=== PATIENT | female | born 1965 | race Caucasian/White ===

== ENCOUNTER → 2019-10-28 | Outpatient (CLI) | payer MEDICARE ==
--- NOTE | 2019-10-28 12:36 | US ---
EXAMINATION TYPE: US venous doppler duplex LE RT DATE OF EXAM: 10/28/2019 12:24 PM COMPARISON: NONE CLINICAL HISTORY: R60.0 EDEMA. Right leg pain/ Pt states history of ovarian CA SIDE PERFORMED: Right TECHNIQUE: The lower extremity deep venous system is examined utilizing real time linear array sonog delfina with graded compression, doppler sonography and color-flow sonography. VESSELS IMAGED: External Iliac Vein (EIV) Common Femoral Vein Deep Femoral Vein Greater Saphenous Vein * Femoral Vein Popliteal Vein Small Saphenous Vein * Proximal Calf Veins (* superficial vessels) Right Leg: Negative for DVT, Multiple enlarged lymph nodes within right groin Results called to Radha KHOURY at Dr's office at time of exam IMPRESSION: 1. Right lower extremity ultrasound negative for deep venous thrombosis. 2. Multiple right inguinal lymph nodes are identified.
== END | disposition home or self-care (01) ==
LOC: RADUSWWP 12:05
PROVIDERS: ATTEND Family Medicine
DX: R60.0 Localized edema (principal)

== ENCOUNTER 2019-11-23 11:29 | Inpatient (IN) | payer MEDICARE ==
--- NOTE | 2019-11-23 12:09 | ED ---
General Adult HPI - General Stated complaint: Tachycardia Time Seen by Provider: 11/23/19 11:31 Source: patient, EMS, RN notes reviewed, old records reviewed Mode of arrival: EMS Limitations: no limitations - History of Present Illness Initial comments: 53-year-old female presenting with increased generalized weakness. She has had dyspnea and is being worked up for tachycardia by her primary care physician and is scheduled to see a store director. She's had a racing heart and palpitations for several weeks. Her symptoms in total have been progressive over several months. She denies fever or chills. Denies cough. Denies abdominal pain. Denies nausea vomiting. Denies dysuria or hematuria. Denies melena or rectal bleeding. She does report exertional dyspnea. - Related Data Home Medications Medication Instructions Recorded Confirmed Atenolol [Tenormin] 25 mg PO DAILY 11/23/19 11/23/19 DULoxetine HCL [Cymbalta] 120 mg PO DAILY 11/23/19 11/23/19 Furosemide [Lasix] 40 mg PO DAILY 11/23/19 11/23/19 Gabapentin [Neurontin] 600 mg PO TID 11/23/19 11/23/19 HYDROcodone/APAP 7.5-325MG [[place] 1 tab PO Q4H PRN 11/23/19 11/23/19 7.5-325] Ibuprofen [Motrin] 800 mg PO Q12H PRN 11/23/19 11/23/19 Montelukast [Singulair] 10 mg PO DAILY 11/23/19 11/23/19 QUEtiapine [SEROquel] 50 mg PO HS 11/23/19 11/23/19 Rucaparib Camsylate [Rubraca] 200 mg PO BID 11/23/19 11/23/19 Zt Lido 1.8% Patch 1 patch TRANSDERM DAILY 11/23/19 11/23/19 busPIRone HCL [Buspar] 30 mg PO DAILY 11/23/19 11/23/19 diphenhydrAMINE [Benadryl] 50 mg PO HS 11/23/19 11/23/19 Allergies Allergy/AdvReac Type Severity Reaction Status Date / Time cephalexin [From Keflex] AdvReac Rash/Hives Verified 11/23/19 13:32 isopropyl alcohol AdvReac Itching Verified 11/23/19 13:32 Penicillins AdvReac Rash/Hives Verified 11/23/19 13:32 walnut AdvReac Swelling Verified 11/23/19 13:32 Review of Systems ROS Statement: Those systems with pertinent positive or pertinent negative responses have been documented in the HPI. ROS Other: All systems not noted in ROS Statement are negative. Past Medical History Past Medical History: Cancer Additional Past Medical History / Comment(s): ovarian History of Any Multi-Drug Resistant Organisms: None Reported Past Psychological History: No Psychological Hx Reported Smoking Status: Never smoker Past Alcohol Use History: None Reported Past Drug Use History: None Reported General Exam Limitations: no limitations General appearance: alert, in no apparent distress Head exam: Present: atraumatic, normocephalic Eye exam: Present: normal appearance, PERRL ENT exam: Present: mucous membranes dry Neck exam: Present: normal inspection. Absent: tenderness, meningismus Respiratory exam: Present: respiratory distress. Absent: wheezes, rhonchi Cardiovascular Exam: Present: normal rhythm, tachycardia GI/Abdominal exam: Present: soft. Absent: distended, tenderness, guarding, rebound Rectal exam: Present: normal inspection, heme (-) stool. Absent: black stool, bloody stool Extremities exam: Present: normal inspection, normal capillary refill Back exam: Present: normal inspection, full ROM. Absent: tenderness Neurological exam: Present: alert, oriented X3. Absent: motor sensory deficit Psychiatric exam: Present: normal affect, normal mood Skin exam: Present: warm, dry, pallor Course Vital Signs 11/23/19 11/23/19 11:42 12:55 Temperature 99.3 F Pulse Rate 124 H 116 H Respiratory 18 18 Rate Blood Pressure 125/62 116/53 O2 Sat by Pulse 85 L 99 Oximetry EKG Findings - EKG Comments: EKG Findings:: EKG: Sinus tachycardia, rate of 126, NC interval 150, QRS duration 84, QTC [address] segment elevation. Medical Decision Making - Medical Decision Making 53-year-old female presenting with generalized weakness, tachycardia. Patient appears dyspneic on exam. She is very pale. Blood pressure stable. She is tachycardic and hypoxic in the 70s on room air. She has significant laboratory abnormalities she is pancytopenic and neutropenic with a hemoglobin 5.2, platelets of 60 and absolute neutrophil count 200. She has a lactic acidosis 7.5 which I suspect is from hypoxia rather than sepsis or volume please luo. She is in heart failure. Echo is obtained in emergency department. She's given 2 units of packed RBCs, she is given some mild IV hydration. She has improved oxygenation on a nonrebreather. CT angiography is performed which is negative for PE, there is significant pulmonary edema and possibility of consolidation. I discussed case with both the pulmonary chief sustainability officer Dr. Munoz and the admitting physician Dr. Briones, was able to evaluate the patient emergency department. She will be admitted to the ICU for close monitoring, further testing. Doses: Pancytopenia, high output heart failure, fluid overload - Lab Data Result diagrams: 11/23/19 11:49 11/23/19 11:49 Lab Results 11/23/19 11/23/19 11/23/19 Range/Units 11:46 11:49 11:49 WBC 1.3 L* (3.8-10.6) k/uL RBC 1.40 L (3.80-5.40) m/uL Hgb 5.2 L* (11.4-16.0) gm/dL Hct 14.9 L* (34.0-46.0) % MCV 106.1 H (80.0-100.0) fL MCH 37.0 H (25.0-35.0) pg MCHC 34.9 (31.0-37.0) g/dL RDW 18.5 H (11.5-15.5) % Plt Count 60 L (150-450) k/uL Neutrophils % (Manual) 15 % Lymphocytes % (Manual) 57 % Monocytes % (Manual) 28 % Neutrophils # [employer] Neutrophils # (Manual) 0.20 L* (1.3-7.7) k/uL Lymphocytes # (Manual) 0.74 L (1.0-4.8) k/uL Monocytes # (Manual) 0.36 (0-1.0) k/uL Nucleated RBCs 0 (0-0) /100 WBC Manual Slide Review Performed Polychromasia Present Poikilocytosis Slight Anisocytosis Slight Macrocytosis Marked A PT (9.0-12.0) sec INR (<1.2) APTT (22.0-30.0) sec Sodium (137-145) mmol/L Potassium (3.5-5.1) mmol/L Chloride (98-107) mmol/L Carbon Dioxide (22-30) mmol/L Anion Gap mmol/L BUN (7-17) mg/dL Creatinine (0.52-1.04) mg/dL Est GFR (CKD-EPI)AfAm (>60 ml/min/1.73 sqM) Est GFR (CKD-EPI)NonAf (>60 ml/min/1.73 sqM) Glucose (74-99) mg/dL POC Glucose (mg/dL) 159 H (75-99) mg/dL POC Glu [employer] Labor ID Mono Collins Plasma Lactic Acid Yaya (0.7-2.0) mmol/L Calcium (8.4-10.2) mg/dL Magnesium (1.6-2.3) mg/dL Total Bilirubin (0.2-1.3) mg/dL AST (14-36) U/L ALT (4-34) U/L Alkaline Phosphatase (38-126) U/L Creatine Kinase (30-135) U/L Troponin I (0.000-0.034) ng/mL NT-Pro-B Natriuret Pep pg/mL Total Protein (6.3-8.2) g/dL Albumin (3.5-5.0) g/dL Stool Occult Blood Negative (Negative) Acetone, Qual (Negative) Blood Type Blood Type Recheck Bld Type Recheck Status Antibody Screen Crossmatch Spec Expiration Date 11/23/19 11/23/19 11/23/19 Range/Units 11:49 11:49 11:49 WBC (3.8-10.6) k/uL RBC (3.80-5.40) m/uL Hgb (11.4-16.0) gm/dL Hct (34.0-46.0) % MCV (80.0-100.0) fL MCH (25.0-35.0) pg MCHC (31.0-37.0) g/dL RDW (11.5-15.5) % Plt Count (150-450) k/uL Neutrophils % (Manual) % Lymphocytes % (Manual) % Monocytes % (Manual) % Neutrophils # Neutrophils # (Manual) (1.3-7.7) k/uL Lymphocytes # (Manual) (1.0-4.8) k/uL Monocytes # (Manual) (0-1.0) k/uL Nucleated RBCs (0-0) /100 WBC Manual Slide Review Polychromasia Poikilocytosis Anisocytosis Macrocytosis PT (9.0-12.0) sec INR (<1.2) APTT (22.0-30.0) sec Sodium 143 (137-145) mmol/L Potassium 4.2 (3.5-5.1) mmol/L Chloride 104 (98-107) mmol/L Carbon Dioxide 20 L (22-30) mmol/L Anion Gap 19 mmol/L BUN 23 H (7-17) mg/dL Creatinine 1.15 H (0.52-1.04) mg/dL Est GFR (CKD-EPI)AfAm 62 (>60 ml/min/1.73 sqM) Est GFR (CKD-EPI)NonAf 54 (>60 ml/min/1.73 sqM) Glucose 146 H (74-99) mg/dL POC Glucose (mg/dL) (75-99) mg/dL POC Glu [employer] Labor ID Plasma Lactic Acid Yaya 7.5 H* (0.7-2.0) mmol/L Calcium 8.6 (8.4-10.2) mg/dL Magnesium 1.6 (1.6-2.3) mg/dL Total Bilirubin 1.7 H (0.2-1.3) mg/dL AST 28 (14-36) U/L ALT 17 (4-34) U/L Alkaline Phosphatase 96 (38-126) U/L Creatine Kinase 34 (30-135) U/L Troponin I (0.000-0.034) ng/mL NT-Pro-B Natriuret Pep 6530 pg/mL Total Protein 6.2 L (6.3-8.2) g/dL Albumin 3.3 L (3.5-5.0) g/dL Stool Occult Blood (Negative) Acetone, Qual Negative (Negative) Blood Type Blood Type Recheck Bld Type Recheck Status Antibody Screen Crossmatch Spec Expiration Date 11/23/19 11/23/19 11/23/19 Range/Units 11:49 11:49 11:55 WBC (3.8-10.6) k/uL RBC (3.80-5.40) m/uL Hgb (11.4-16.0) gm/dL Hct (34.0-46.0) % MCV (80.0-100.0) fL MCH (25.0-35.0) pg MCHC (31.0-37.0) g/dL RDW (11.5-15.5) % Plt Count (150-450) k/uL Neutrophils % (Manual) % Lymphocytes % (Manual) % Monocytes % (Manual) % Neutrophils # Neutrophils # (Manual) (1.3-7.7) k/uL Lymphocytes # (Manual) (1.0-4.8) k/uL Monocytes # (Manual) (0-1.0) k/uL Nucleated RBCs (0-0) /100 WBC Manual Slide Review Polychromasia Poikilocytosis Anisocytosis Macrocytosis PT 12.3 H (9.0-12.0) sec INR 1.2 H (<1.2) APTT 27.4 (22.0-30.0) sec Sodium (137-145) mmol/L Potassium (3.5-5.1) mmol/L Chloride (98-107) mmol/L Carbon Dioxide (22-30) mmol/L Anion Gap mmol/L BUN (7-17) mg/dL Creatinine (0.52-1.04) mg/dL Est GFR (CKD-EPI)AfAm (>60 ml/min/1.73 sqM) Est GFR (CKD-EPI)NonAf (>60 ml/min/1.73 sqM) Glucose (74-99) mg/dL POC Glucose (mg/dL) (75-99) mg/dL POC Glu [employer] Labor ID Plasma Lactic Acid Yaya (0.7-2.0) mmol/L Calcium (8.4-10.2) mg/dL Magnesium (1.6-2.3) mg/dL Total Bilirubin (0.2-1.3) mg/dL AST (14-36) U/L ALT (4-34) U/L Alkaline Phosphatase (38-126) U/L Creatine Kinase (30-135) U/L Troponin I 0.049 H* (0.000-0.034) ng/mL NT-Pro-B Natriuret Pep pg/mL Total Protein (6.3-8.2) g/dL Albumin (3.5-5.0) g/dL Stool Occult Blood (Negative) Acetone, Qual (Negative) Blood Type O Positive Blood Type Recheck O Pos Bld Type Recheck Status No Antibody Screen NEGATIVE Crossmatch See Detail Spec Expiration Date 11/26/2019 - 2288 Critical Care Time Critical Care Time: Yes Total Critical Care Time: 35 Disposition Clinical Impression: Anemia, High output heart failure, Pancytopenia, Acute respiratory failure with hypoxia Disposition: ADMITTED IP TO THIS [facility] Condition: Serious Is patient prescribed a controlled substance at d/c from ED?: No Referrals: Jimmy Ferrer MD [Primary Care Provider] - 1-2 days Decision to Admit Reason: Admit from EC Decision Date: 11/23/19 Decision Time: 13:41
[2019-11-23 12:12] LABS: Glucose,Whole Blood 159 mg/dL (75-99)
[2019-11-23 12:17] LABS: Anisocytosis Slight; INR 1.2 (<1.2); MCHC 34.9 g/dL (31.0-37.0); MCV 106.1 fL (80.0-100.0); Macrocytosis Marked; Mean Platelet Volume 8.6; Partial Thromboplastin Time 27.4 sec (22.0-30.0); Poikilocytosis Slight; Prothrombin Time 12.3 sec (9.0-12.0); RDW 18.5 % (11.5-15.5)
[2019-11-23 12:20] LABS: AST 28 U/L (14-36); African American GFR (CKD) 62 (>60 ml/min/1.73 sqM); Albumin 3.3 g/dL (3.5-5.0); Alkaline Phosphatase 96 U/L (38-126); Anion Gap 19 mmol/L; Blood Urea Nitrogen 23 mg/dL (7-17); Calcium 8.6 mg/dL (8.4-10.2); Carbon Dioxide 20 mmol/L (22-30); Chloride 104 mmol/L (98-107); Creatine Kinase 34 U/L (30-135); Glucose 146 mg/dL (74-99); Magnesium 1.6 mg/dL (1.6-2.3); Non-African American GFR(CKD) 54 (>60 ml/min/1.73 sqM); Potassium 4.2 mmol/L (3.5-5.1); Sodium 143 mmol/L (137-145); Total Bilirubin 1.7 mg/dL (0.2-1.3); Total Protein 6.2 g/dL (6.3-8.2)
[2019-11-23 12:24] LABS: HGB 5.2 gm/dL (11.4-16.0); WBC 1.3 k/uL (3.8-10.6)
[2019-11-23 12:25] LABS: HCT 14.9 % (34.0-46.0)
--- NOTE | 2019-11-23 12:25 | XR ---
EXAMINATION TYPE: XR chest 1V portable DATE OF EXAM: 11/23/2019 COMPARISON: 03/31/2012 HISTORY: Shortness of breath TECHNIQUE: Single frontal view of the chest is obtained. FINDINGS: Diffuse interstitial pattern with multifocal areas of consolidation involving the right up per and lower lobe. No sizable pleural effusion or pneumothorax. Heart is mildly prominent. Limited i nspiration. Osseous structures grossly intact. IMPRESSION: 1. Diffuse interstitial and alveolar pattern with multifocal areas of consolidation involving the rig ht upper and lower lobe. Differential diagnosis would include multifocal pneumonia, atypical pneumoni a or pulmonary edema. Correlate clinically.
[2019-11-23 12:26] LABS: ALT 17 U/L (4-34)
[2019-11-23] MEDS ORDERED: AZITHROMYCIN 500 MG in SODIUM CHLORIDE 0.9% 250 ML IVPB STA (12:34)
[2019-11-23] MEDS: SODIUM CHLORIDE 0.9% 1,000 ML IV SCH (12:54)
[2019-11-23 13:10] LABS: Lymphocytes # (M) 0.74 k/uL (1.0-4.8); Monocytes # (M) 0.36 k/uL (0-1.0); Neutrophils % (M) 15 %; Nucleated Red Blood Cells 0 /100 WBC (0-0); Total Cells Counted 100
[2019-11-23 13:11] LABS: Polychromasia Present
[2019-11-23 13:12] LABS: Platelet Count 60 k/uL (150-450)
--- NOTE | 2019-11-23 13:12 | CT ---
EXAMINATION TYPE: CT angio chest DATE OF EXAM: 11/23/2019 12:48 PM COMPARISON: Chest x-ray 11/23/2019 HISTORY: PE CT DLP: 703.9 mGycm Automated exposure control for dose reduction was used. CONTRAST: CTA scan of the thorax is performed with IV Contrast, patient injected with 100 mL of Isovue 370, pul monary embolism protocol. . FINDINGS: LUNGS: There is bilateral multifocal areas of consolidation greater within the upper lobes bilaterall y. Pleural-based thickening and areas of additional groundglass and subsegmental consolidation are se en small bilateral pleural effusions. MEDIASTINUM: There is suboptimal enhancement pulmonary arteries due to artifact. No diagnostic eviden ce of pulmonary embolism within the main right or left pulmonary artery. There is a linear density se en on axial image 50 secondary branch of the right pulmonary artery which is felt to BE most likely a rtifactual. There is cardiomegaly without sizable pericardial effusion. OTHER: There is nonspecific edema in the anterior subcutaneous tissues. Suggestion surgical clips in the right upper quadrant of the abdomen. Correlate for previous cholecystectomy. Hypertrophic change s and degenerative disc disease of vertebral column. Bilateral breast implant IMPRESSION: 1. Bilateral large areas of consolidation additional subsegmental groundglass changes seen diffusely greatest involvement involving the upper lobes. Correlate for. A pulmonary edema also in the differen tial diagnosis. 2. Limited exam in assessment of pulmonary embolism due to artifact centrally. Cannot not exclude a p ulmonary embolism within the secondary branch of the right pulmonary artery due to an abnormal linear density. Finding Most likely is artifactual but should be correlated clinically. If warranted a VQ s can could BE obtained given the limitation of the current exam. 2. Small bilateral pleural effusions and cardiomegaly.
[2019-11-23] MEDS ORDERED: NALOXONE 0.4 MG/ML 1 ML VIAL IV PRN (13:18)
[2019-11-23 14:21] LABS: Appearance,Urine Clear (Clear); Bilirubin,Urine Negative (Negative); Blood,Urine Negative (Negative); Color,Urine Yellow; Glucose,Urine (UA) Negative (Negative); Ketones,Urine Negative (Negative); Leukocyte Esterase,Urine Negative (Negative); Nitrite,Urine Negative (Negative); Protein,Urine Trace (Negative)
[2019-11-23 14:44] LABS: Glucose,Whole Blood 158 mg/dL (75-99)
[2019-11-23 14:58] LABS: Specific Gravity,Urine >1.050 (1.001-1.035)
--- NOTE | 2019-11-23 15:13 | P.HPIM ---
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 The patient reports that her symptoms started after she returned from a trip to [facility] at the end of September. She reports that in early October she had developed a cold, after which she slowly developed her symptoms. Patient reports that she has a history of hemorrhoids and regularly bleeds with bright red blood upon wiping and in the toilet bowl, though notes th at the bleeding did stop roughly 2-3 weeks ago. She otherwise denied abdominal pain, fever, cough, chills, chest pain, nausea, or vomiting. The patient underwent an extensive evaluation in the emergency room. Upon presentation, her vital signs were P 124, BP 125/62, 85% on 3L NC, T 99.3. Laboratory evaluation revealed WBC count 1.3, hemoglobin 5.2, platelets 60, lactic acid 7.5, troponin 0.049, BUN 23, creatinine 1.15, FOBT negative, and negative acetone. Chest x- ray revealed diffuse interstitial and alveolar pattern with multifocal areas of consolidation. Chest CTA showing aparna areas of consolidation with ground-glass changes involving the upper lobes, possibly pulmonary edema. She was given azithromycin, and 2 units of PRBCs were ordered and the patient is being admitted to the medical ICU for further management. Review of Systems Pertinent positives and negatives as discussed in HPI, a complete review of systems was performed and all other systems are negative. Past Medical History Past Medical History: Cancer Additional Past Medical History / Comment(s): ovarian History of Any Multi-Drug Resistant Organisms: None Reported Past Psychological History: No Psychological Hx Reported Smoking Status: Never smoker Past Alcohol Use History: None Reported Past Drug Use History: None Reported - Past Family History Mother Family Medical History: Cancer Additional Family Medical History / Comment(s): Pancreatic CA Brother(s) Family Medical History: Cancer Additional Family Medical History / Comment(s): Pancreatic CA Medications and Allergies Home Medications Medication Instructions Recorded Confirmed Type Atenolol [Tenormin] 25 mg PO DAILY 11/23/19 11/23/19 History DULoxetine HCL [Cymbalta] 120 mg PO DAILY 11/23/19 11/23/19 History Furosemide [Lasix] 40 mg PO DAILY 11/23/19 11/23/19 History Gabapentin [Neurontin] 600 mg PO TID 11/23/19 11/23/19 History HYDROcodone/APAP 7.5-325MG [[place] 1 tab PO Q4H PRN 11/23/19 11/23/19 History 7.5-325] Ibuprofen [Motrin] 800 mg PO Q12H PRN 11/23/19 11/23/19 History Montelukast [Singulair] 10 mg PO DAILY 11/23/19 11/23/19 History QUEtiapine [SEROquel] 50 mg PO HS 11/23/19 11/23/19 History Rucaparib Camsylate [Rubraca] 200 mg PO BID 11/23/19 11/23/19 History Zt [place]ido 1.8% Patch 1 patch TRANSDERM DAILY 11/23/19 11/23/19 History busPIRone HCL [Buspar] 10 mg PO TID 11/23/19 11/23/19 History diphenhydrAMINE [Benadryl] 50 mg PO HS 11/23/19 11/23/19 History Allergies Allergy/AdvReac Type Severity Reaction Status Date / Time cephalexin [From Keflex] AdvReac Rash/Hives Verified 11/23/19 13:32 isopropyl alcohol AdvReac Itching Verified 11/23/19 13:32 Penicillins AdvReac Rash/Hives Verified 11/23/19 13:32 walnut AdvReac Swelling Verified 11/23/19 13:32 Physical Exam Vitals: Vital Signs Temp Pulse Resp BP Pulse Ox 11/23/19 13:47 99.4 F 118 H 20 100/63 97 11/23/19 12:55 116 H 18 116/53 99 11/23/19 11:42 99.3 F 124 H 18 125/62 85 L Intake and Output 11/22/19 11/23/19 11/23/19 22:59 06:59 14:59 Other: Weight 99.79 kg General: non toxic, pale, no distress, appears at stated age, morbidly obese, on non-rebreather 6L Derm: no unusual rashes/lesions no unusual ecchymoses, warm, dry Head: atraumatic, normocephalic, symmetric Eyes: EOMI, no lid lag, anicteric sclera, pupils equal round reactive to light ENT: Nose and ears atraumatic, no thrush, no pharyngeal erythema Neck: No thyromegaly, no cervical lymphadenopathy, trachea midline, supple Mouth: no lip lesion, mucus membranes moist Cardiovascular: S1S2 reg, tachycardic, no murmur, positive posterior tibial pulse bilateral, 1+ aparna LE edema, capillary refill less than 2 seconds Lungs: CTA bilateral, no rhonchi, no rales , no accessory muscle use Abdominal: soft, nontender to palpation, no guarding, no appreciable organomegaly, normal bowel sounds Ext: no gross muscle atrophy, muscle strength 5 out of 5 in all 4 extremities grossly, no contractures Neuro: CN II-XI grossly intact, light touch intact all 4 extremities, finger to nose within normal limits Psych: Alert, oriented, appropriate affect Results CBC & Chem 7: 11/23/19 11:49 11/23/19 11:49 Labs: Abnormal Lab Results - Last 24 Hours (Table) 11/23/19 11/23/19 11/23/19 Range/Units 11:46 11:49 11:49 WBC 1.3 L* (3.8-10.6) k/uL RBC 1.40 L (3.80-5.40) m/uL Hgb 5.2 L* (11.4-16.0) gm/dL Hct 14.9 L* (34.0-46.0) % MCV 106.1 H (80.0-100.0) fL MCH 37.0 H (25.0-35.0) pg RDW 18.5 H (11.5-15.5) % Plt Count 60 L (150-450) k/uL Neutrophils # (Manual) 0.20 L* (1.3-7.7) k/uL Lymphocytes # (Manual) 0.74 L (1.0-4.8) k/uL Macrocytosis Marked A PT (9.0-12.0) sec INR (<1.2) Carbon Dioxide 20 L (22-30) mmol/L BUN 23 H (7-17) mg/dL Creatinine 1.15 H (0.52-1.04) mg/dL Glucose 146 H (74-99) mg/dL POC Glucose (mg/dL) 159 H (75-99) mg/dL Plasma Lactic Acid Yaya (0.7-2.0) mmol/L Total Bilirubin 1.7 H (0.2-1.3) mg/dL Troponin I (0.000-0.034) ng/mL Total Protein 6.2 L (6.3-8.2) g/dL Albumin 3.3 L (3.5-5.0) g/dL Crossmatch 11/23/19 11/23/19 11/23/19 Range/Units 11:49 11:49 11:49 WBC (3.8-10.6) k/uL RBC (3.80-5.40) m/uL Hgb (11.4-16.0) gm/dL Hct (34.0-46.0) % MCV (80.0-100.0) fL MCH (25.0-35.0) pg RDW (11.5-15.5) % Plt Count (150-450) k/uL Neutrophils # (Manual) (1.3-7.7) k/uL Lymphocytes # (Manual) (1.0-4.8) k/uL Macrocytosis PT 12.3 H (9.0-12.0) sec INR 1.2 H (<1.2) Carbon Dioxide (22-30) mmol/L BUN (7-17) mg/dL Creatinine (0.52-1.04) mg/dL Glucose (74-99) mg/dL POC Glucose (mg/dL) (75-99) mg/dL Plasma Lactic Acid Yaya 7.5 H* (0.7-2.0) mmol/L Total Bilirubin (0.2-1.3) mg/dL Troponin I 0.049 H* (0.000-0.034) ng/mL Total Protein (6.3-8.2) g/dL Albumin (3.5-5.0) g/dL Crossmatch 11/23/19 Range/Units 11:55 WBC (3.8-10.6) k/uL RBC (3.80-5.40) m/uL Hgb (11.4-16.0) gm/dL Hct (34.0-46.0) % MCV (80.0-100.0) fL MCH (25.0-35.0) pg RDW (11.5-15.5) % Plt Count (150-450) k/uL Neutrophils # (Manual) (1.3-7.7) k/uL Lymphocytes # (Manual) (1.0-4.8) k/uL Macrocytosis PT (9.0-12.0) sec INR (<1.2) Carbon Dioxide (22-30) mmol/L BUN (7-17) mg/dL Creatinine (0.52-1.04) mg/dL Glucose (74-99) mg/dL POC Glucose (mg/dL) (75-99) mg/dL Plasma Lactic Acid Yaya (0.7-2.0) mmol/L Total Bilirubin (0.2-1.3) mg/dL Troponin I (0.000-0.034) ng/mL Total Protein (6.3-8.2) g/dL Albumin (3.5-5.0) g/dL Crossmatch See Detail Assessment and Plan Plan: Pancytopenia, possibly a drug side effect from Rubraca in setting of history of multiple malignancies -2 units of PRBCs ordered -Low suspicion for GI bleed since pancytopenia and neg FOBT -Monitor CBC every 12 hours -Consult hematology -Neutropenic precautions -MICU admission Lactic acidosis -Likely due to severe anemia due to pancytopenia -Monitor for resolution -Judicious use of IV fluids due to pulmonary edema and fluid overload Troponin elevation -Likely due to sinus tachycardia from severe anemia -Trend troponin -Cardiac monitoring -Echocardiogram Abnormal chest CTA with multifocal consolidation versus pulmonary edema -Continue with azithromycin for now, lower suspicion for pneumonia RAN -Monitor BMP DVT prophylaxis -IPCDs The patient is admitted with an anticipated greater than 2 midnight stay for evaluation of pancytopenia CODE STATUS: Full Code Discussed with: Patient Anticipated discharge date: 3-[address]: Home A total of 50 minutes was spent on the care of this complex patient more than 50% of the time was spent in counseling and care coordination.
[2019-11-23] MEDS ORDERED: IPRATROPIUM-ALBUTEROL 3 ML NEB INHALATION PRN ×2 (16:57→17:14)
[2019-11-23] MEDS ORDERED: FUROSEMIDE 10 MG/ML 4 ML VIAL IV STA (16:57)
[2019-11-23 17:41] LABS: ABG Base Excess 3.3 mmol/L; ABG HCO3 27 mmol/L (21-25); ABG Oxygen Saturation 99.3 % (94-97); ABG PCO2 36 mmHg (35-45); ABG PH 7.49 (7.35-7.45); ABG PO2 137 mmHg (83-108); ABG TCO2 28 mmol/L (19-24); Allen Test Performed? Yes
[2019-11-23] MEDS ORDERED: ALPRAZolam 0.5 MG TAB PO STA (17:50)
[2019-11-23] MEDS: FILGRASTIM-SNDZ 480 MCG/0.8 ML SYRINGE SQ SCH (19:08)
[2019-11-23] MEDS: IPRATROPIUM-ALBUTEROL 3 ML NEB INHALATION SCH (19:43)
[2019-11-23] MEDS: LEVOFLOXACIN 500MG-D5W PMX 500 MG in DEXTROSE/WATER 1 100ML.BAG IVPB SCH (20:07)
[2019-11-23 20:37] LABS: Anisocytosis Slight; MCH 35.3 pg (25.0-35.0); MCHC 34.8 g/dL (31.0-37.0); MCV 101.4 fL (80.0-100.0); Macrocytosis Moderate; Mean Platelet Volume 7.9; RBC 1.54 m/uL (3.80-5.40); RDW 19.3 % (11.5-15.5)
[2019-11-23 20:51] LABS: Bilirubin, Delta 0.7 mg/dL (0.0-0.2); Bilirubin,Unconjugated 1.3 mg/dL (0.0-1.1)
[2019-11-23 20:59] LABS: Platelet Count 52 k/uL (150-450)
[2019-11-23 21:12] LABS: HGB 5.5 gm/dL (11.4-16.0); WBC 1.2 k/uL (3.8-10.6)
[2019-11-23 21:13] LABS: HCT 15.7 % (34.0-46.0)
[2019-11-23 21:34] LABS: Band Neutrophils % 4 %; Lymphocytes # (M) 0.71 k/uL (1.0-4.8); Monocytes # (M) 0.29 k/uL (0-1.0); Neutrophils % (M) 13 %; Nucleated Red Blood Cells 1 /100 WBC (0-0); Poikilocytosis (M) Present; Polychromasia Present; Total Cells Counted 100
--- NOTE | 2019-11-23 21:43 | CONS ---
CONSULTATION PULMONARY/CRITICAL CARE CONSULTATION: November 23, 2019. REASON FOR CONSULTATION: Shortness of breath, tachycardia, pancytopenia, and weakness. This is a patient who was brought in to the emergency room by EMS. Her primary doctor is Dr. Jimmy Ferrer. She was seen today at about 11:30 am. She is 53 years of age. She complains of not feeling well since October 21. She has just gotten progressively worse since that time. She apparently had a cold earlier in the month and since that time, it has just gotten worse and worse. Her complaints include primarily shortness of breath. She is short of breath at rest and on exertion. She also admits to being feeling heart racing and having palpitations. In addition, she is very weak. For that reason, she was seen in the emergency room and admitted. She denied any fever or chills. She denied any cough or phlegm production. She denied any abdominal pain or abdominal discomfort. There is no nausea, vomiting or diarrhea. She denies any genitourinary complaints. She did have bleeding hemorrhoids. She was found to be quite anemic and 2 units of blood were ordered. Currently, the patient is on a [address] from stridor. Currently, the patient is on a non-rebreather. The patient is getting 1 unit of blood. The patient is on some basic IV fluids. The patient is currently feeling quite short of breath. MEDICATIONS: Reviewed. She is on Tenormin, Cymbalta, Lasix, gabapentin, Brave, Motrin, Singulair, syrup, and Seroquel. She is also okay taking Rubraca, BuSpar, and Benadryl. ALLERGIES: INCLUDE KEFLEX, ISOPROPYL ALCOHOL, PENICILLIN, AND WALNUT. MEDICAL HISTORY: Bilateral breast cancer, status post radical mass, bilateral mastectomy. She also apparently has a history of ovarian carcinoma and received a number of chemotherapeutic agents as well as having a bilateral salpingo-oophorectomy and a hysterectomy. She has received some radiation to the pelvic area as well. She has not received any chemotherapeutic agents since 2016. She primarily gets her cancer care down at [facility]. SOCIAL HISTORY: Negative for tobacco, alcohol or illicit drug use. Family history negative. Family is healthy including mother and father. REVIEW OF SYSTEMS: CONSTITUTIONAL weakness. NEUROLOGIC negative. HEENT negative. CARDIOVASCULAR: Tachycardia, racing heartbeat, palpitations. PULMONARY: Shortness of breath. GI negative. negative. RHEUMATOLOGIC negative. IMMUNOLOGIC negative. ENDOCRINOLOGIC negative. DERMATOLOGIC negative. PHYSICAL EXAMINATION: VITAL SIGNS: Current vital signs are reviewed. Heart rate about 115. Respiratory rate about mid to high 20s. Temperature is 99.9, blood pressure is 121/80, mean 93. Saturations are 85%, up to 92% on a non-rebreather. Appears quite tachypneic and dyspneic. Lots of conversational dyspnea. No audible wheezing. Some use of accessory muscles. HEENT examination is grossly unremarkable. Non-rebreather mask in place. NECK: Supple. Full range of motion. No adenopathy. CARDIOVASCULAR: Examination reveals tachycardia. Seems regular. S1, S2 normal. No distinct murmur. LUNGS: Reveal some crackles throughout. There are some coarse rhonchi. No wheezes. ABDOMEN: Obese. Bowel sounds are noted. EXTREMITIES: Reveal some edema. It is 1+ and pitting. Left leg greater than right leg. SKIN is without rash. NEUROLOGIC: Examination is brief but nonfocal. LABS: Reviewed. White count is 1.3, hemoglobin 5.2, hematocrit 14.9, platelet count is 60,000. The differential shows 20% neutrophils and 74% lymphocytes. PT 12.3, INR 1.2, PTT is 27.4. Sodium 143, potassium 4.2, chloride 104, CO2 20, anion gap is 19, BUN and creatinine were 23 and 1.15. Glucose 146. Lactic acid 7.5, bilirubin 1.7, troponin 0.049 and her N terminal proBNP was 6530. Albumin was 3.3. Urine is negative. Influenza studies were negative. Stools for occult blood negative. Acetone negative. X-RAY: Chest x-ray shows some diffuse bilateral infiltrates, which could relate to either pneumonia and/or heart failure/fluid overload. CT angiogram was of poor quality but did not show any large or central pulmonary emboli. There was diffuse ground-glass changes throughout, which could relate to either inflammation/infection versus pulmonary edema. The radiologist could not exclude a smaller pulmonary embolism. There is small bilateral effusions and cardiomegaly. Microbiology is pending. Medications are reviewed. She has Azithromycin orally, Narcan and a 0.9 IV. 1 unit of blood is running. ASSESSMENT: 1. Respiratory distress with hypoxemia, likely related to either pneumonia and/or fluid overload or both. 2. Tachycardia, secondary to respiratory distress. 3. Rule out congestive heart failure. 4. History of ovarian cancer, status post bilateral salpingo-oophorectomy and hysterectomy, with prior multiple chemotherapeutic agents and radiation. 5. History of left breast cancer, status post bilateral radical mastectomy. 6. Obesity. PLAN: The patient will get a unit of blood. We will repeat the hemoglobin. We will get her on some more broad-spectrum antibiotics. We will do cultures of blood, urine and sputum. We will go ahead and put her on some BiPAP at 12, 5 and 100%. We will give her some Lasix IV push. Additional recommendations and suggestions are forthcoming. Prognosis is guarded. She will need a cardiology consultation and an echocardiogram. We will also start the patient on updrafts. Please see my orders. Prognosis is guarded. MMODL / IJN: [id number] /
[2019-11-23] MEDS: ALPRAZolam 1 MG TAB PO PRN (21:50)
[2019-11-23] MEDS: PANTOPRAZOLE 40 MG/10 ML VIAL IVP SCH (21:50)
--- NOTE | 2019-11-24 | P.CONS ---
History of Present Illness - Reason for Consult Consult date: 11/23/19 pancytopenia. History of breast/ovarian ca - History of Present Illness The patient is a 53-year-old white female, with a significant past oncologic history. The patient has a history of BRCA positivity, with right-sided breast cancer, as well as ovarian cancer. The patient has had localized recurrence of her ovarian cancer and has been able to be treated successfully with surgery and chemotherapy. Her last surgery was in 2015. She has had no evidence of recurrence since then and is currently on a PARP inhibitor Rucaparib for maintenance. Previously, she was on Olaparib for many months, but was changed to her present regimen due to coverage reasons. She follows closely with Dr. Camejo, in the [facility]. She had a regular follow-up in 09/29 and at that time was found to have no evidence of recurrence. The patient states that after that follow-up she had a cold and then developed some shortness of breath. This has been slowly progressive since then. She has had no symptoms suggestive chest pain, fever or chills. There has been a cough, which has been mostly dry in generally minor. Due to progression of these symptoms, as well as increasing weakness, and pale complexion she came into the emergency room. She had a CTA of the chest on, that was negative for any masses, adenopathy or PE. However she was found to have bilateral interstitial infiltrative change, consistent with fluid overload versus other. She was also noted to have marked pancytopenia, with WBC in the 1-2 range, hemoglobin in the 5-6 range, and platelets in the 60,000 range. She was therefore admitted further management and consult placed. The patient was on a nonrebreather in the ER, and at the time of my evaluation was on BiPAP at 50% FiO2 Review of Systems Constitutional: Reports fatigue, Reports poor appetite, Reports weakness Eyes: denies blurred vision, denies pain Ears: deny: decreased hearing, ear discharge, earache, tinnitus Ears, nose, mouth and throat: Denies headache, Denies sore throat Cardiovascular: Reports shortness of breath Respiratory: Reports cough, Reports dyspnea Gastrointestinal: Reports hematochezia (resolved a few weeks ago, appears hemorrhoid related by history) Genitourinary: Denies dysuria, Denies hematuria Menstruation: Reports postmenopausal Musculoskeletal: Reports muscle weakness Integumentary: Denies pruritus, Denies rash Neurological: Reports weakness Psychiatric: Reports anxiety Endocrine: Reports fatigue Hematologic/Lymphatic: Reports as per HPI Past Medical History Past Medical History: Cancer Additional Past Medical History / Comment(s): ovarian History of Any Multi-Drug Resistant Organisms: None Reported Past Surgical History: Adenoidectomy, Appendectomy, Breast Surgery, Cholecystectomy, Hernia Repair, Hysterectomy, Tonsillectomy Additional Past Surgical History / Comment(s): Double masectomy Past Anesthesia/Blood Transfusion Reactions: No Reported Reaction Past Psychological History: No Psychological Hx Reported Smoking Status: Never smoker Past Alcohol Use History: None Reported Past Drug Use History: None Reported - Past Family History Mother Family Medical History: Cancer Additional Family Medical History / Comment(s): Pancreatic CA Brother(s) Family Medical History: Cancer Additional Family Medical History / Comment(s): Pancreatic CA Medications and Allergies Home Medications Medication Instructions Recorded Confirmed Type Atenolol [Tenormin] 25 mg PO DAILY 11/23/19 11/23/19 History DULoxetine HCL [Cymbalta] 120 mg PO DAILY 11/23/19 11/23/19 History Furosemide [Lasix] 40 mg PO DAILY 11/23/19 11/23/19 History Gabapentin [Neurontin] 600 mg PO TID 11/23/19 11/23/19 History HYDROcodone/APAP 7.5-325MG [Almond 1 tab PO Q4H PRN 11/23/19 11/23/19 History 7.5-325] Ibuprofen [Motrin] 800 mg PO Q12H PRN 11/23/19 11/23/19 History Montelukast [Singulair] 10 mg PO DAILY 11/23/19 11/23/19 History QUEtiapine [SEROquel] 50 mg PO HS 11/23/19 11/23/19 History Rucaparib Camsylate [Rubraca] 200 mg PO BID 11/23/19 11/23/19 History Zt Lido 1.8% Patch 1 patch TRANSDERM DAILY 11/23/19 11/23/19 History busPIRone HCL [Buspar] 10 mg PO TID 11/23/19 11/23/19 History diphenhydrAMINE [Benadryl] 50 mg PO HS 11/23/19 11/23/19 History Allergies Allergy/AdvReac Type Severity Reaction Status Date / Time cephalexin [From Keflex] AdvReac Rash/Hives Verified 11/23/19 13:32 isopropyl alcohol AdvReac Itching Verified 11/23/19 13:32 Penicillins AdvReac Rash/Hives Verified 11/23/19 13:32 walnut AdvReac Swelling Verified 11/23/19 13:32 Physical Exam Vitals: Vital Signs Temp Pulse Resp BP Pulse Ox 11/23/19 23:09 100.1 F H 125 H 28 H 138/81 97 11/23/19 22:29 100.3 F H 122 H 27 H 141/74 100 11/23/19 22:19 100.4 F H 124 H 30 H 138/82 100 11/23/19 22:09 100.4 F H 123 H 26 H 140/73 98 11/23/19 22:00 123 H 35 H 134/81 100 11/23/19 21:00 123 H 25 H 134/83 100 11/23/19 20:02 125 H 11/23/19 20:00 99 F 123 H 28 H 121/76 100 11/23/19 19:43 121 H 11/23/19 19:00 122 H 16 137/86 100 11/23/19 18:00 114 H 23 137/86 97 11/23/19 17:11 98.2 F 112 H 21 140/92 96 11/23/19 17:00 111 H 23 140/92 97 11/23/19 16:50 111 H 20 96 11/23/19 16:40 112 H 29 H 98 11/23/19 16:30 114 H 17 96 11/23/19 16:20 112 H 23 99 11/23/19 16:10 112 H 25 H 98 11/23/19 16:00 111 H 22 131/78 99 11/23/19 15:50 111 H 18 100 11/23/19 15:40 112 H 20 99 11/23/19 15:30 112 H 12 121/80 85 L 11/23/19 15:20 113 H 22 98 11/23/19 15:10 110 H 17 97 11/23/19 15:00 114 H 24 98 11/23/19 14:50 114 H 15 99 11/23/19 14:45 99.9 F H 115 H 21 116/67 99 11/23/19 14:44 22 11/23/19 14:15 99 F 115 H 18 103/65 94 L 11/23/19 14:05 99.3 F 116 H 18 95/59 94 L 11/23/19 13:47 99.4 F 118 H 20 100/63 97 11/23/19 12:55 116 H 18 116/53 99 11/23/19 11:42 99.3 F 124 H 18 125/62 85 L Intake and Output 11/23/19 11/23/19 11/24/19 14:59 22:59 06:59 Intake Total 0 1160 Output Total 200 2975 Balance -200 -1815 Intake: IV 600 Sodium Chloride 0.9% 1, 600 000 ml @ 75 mls/hr IV . [id number] SRINIVAS Rx#:[id number] Intake, IV Titration 100 Amount Levofloxacin 500Mg-D5w 100 Pmx 500 mg In Dextrose/ Water 1 100ml.bag @ 100 mls/hr IVPB Q24H SRINIVAS Rx#: [id number] Oral 150 Blood Product 0 310 Rc As-1 Unit 0 310 [id number] Rc As-1 Unit 0 [id number] Output: Urine 200 2975 Uretheral (Tom) 200 Other: Voiding Method Indwelling Catheter Weight 99.79 kg - Constitutional General appearance: mild distress - EENT Eyes: EOMI, PERRLA ENT: hearing grossly normal, normal oropharynx - Neck Neck: no lymphadenopathy - Respiratory Respiratory: bilateral: CTA, rales (mild, scattered , in all zones) - Cardiovascular Rhythm: regular Heart sounds: normal: S1, S2 - Gastrointestinal General gastrointestinal: normal bowel sounds, soft - Integumentary Integumentary: normal - Neurologic Neurologic: CNII-XII intact - Musculoskeletal Musculoskeletal: generalized weakness, strength equal bilaterally - Psychiatric very anxious Psychiatric: A&O x's 3 Results CBC & Chem 7: 11/23/19 20:25 11/23/19 11:49 Labs: Abnormal Lab Results - Last 24 Hours (Table) 11/23/19 11/23/19 11/23/19 Range/Units 11:46 11:49 11:49 WBC 1.3 L* (3.8-10.6) k/uL RBC 1.40 L (3.80-5.40) m/uL Hgb 5.2 L* (11.4-16.0) gm/dL Hct 14.9 L* (34.0-46.0) % MCV 106.1 H (80.0-100.0) fL MCH 37.0 H (25.0-35.0) pg RDW 18.5 H (11.5-15.5) % Plt Count 60 L (150-450) k/uL Neutrophils # (Manual) 0.20 L* (1.3-7.7) k/uL Lymphocytes # (Manual) 0.74 L (1.0-4.8) k/uL Nucleated RBCs (0-0) /100 WBC Macrocytosis Marked A PT (9.0-12.0) sec INR (<1.2) Fibrinogen (200-500) mg/dL ABG pH (7.35-7.45) ABG pO2 (83-108) mmHg ABG HCO3 (21-25) mmol/L ABG Total CO2 (19-24) mmol/L ABG O2 Saturation (94-97) % Carbon Dioxide 20 L (22-30) mmol/L BUN 23 H (7-17) mg/dL Creatinine 1.15 H (0.52-1.04) mg/dL Glucose 146 H (74-99) mg/dL POC Glucose (mg/dL) 159 H (75-99) mg/dL Plasma Lactic Acid Yaya (0.7-2.0) mmol/L Total Bilirubin 1.7 H (0.2-1.3) mg/dL Unconjugated Bilirubin (0.0-1.1) mg/dL Delta Bilirubin (0.0-0.2) mg/dL Lactate Dehydrogenase (313-618) U/L Troponin I (0.000-0.034) ng/mL Total Protein 6.2 L (6.3-8.2) g/dL Albumin 3.3 L (3.5-5.0) g/dL Ur Specific [place] (1.001-1.035) Urine Protein (Negative) Crossmatch 11/23/19 11/23/19 11/23/19 Range/Units 11:49 11:49 11:49 WBC (3.8-10.6) k/uL RBC (3.80-5.40) m/uL Hgb (11.4-16.0) gm/dL Hct (34.0-46.0) % MCV (80.0-100.0) fL MCH (25.0-35.0) pg RDW (11.5-15.5) % Plt Count (150-450) k/uL Neutrophils # (Manual) (1.3-7.7) k/uL Lymphocytes # (Manual) (1.0-4.8) k/uL Nucleated RBCs (0-0) /100 WBC Macrocytosis PT 12.3 H (9.0-12.0) sec INR 1.2 H (<1.2) Fibrinogen (200-500) mg/dL ABG pH (7.35-7.45) ABG pO2 (83-108) mmHg ABG HCO3 (21-25) mmol/L ABG Total CO2 (19-24) mmol/L ABG O2 Saturation (94-97) % Carbon Dioxide (22-30) mmol/L BUN (7-17) mg/dL Creatinine (0.52-1.04) mg/dL Glucose (74-99) mg/dL POC Glucose (mg/dL) (75-99) mg/dL Plasma Lactic Acid Yaya 7.5 H* (0.7-2.0) mmol/L Total Bilirubin (0.2-1.3) mg/dL Unconjugated Bilirubin (0.0-1.1) mg/dL Delta Bilirubin (0.0-0.2) mg/dL Lactate Dehydrogenase (313-618) U/L Troponin I 0.049 H* (0.000-0.034) ng/mL Total Protein (6.3-8.2) g/dL Albumin (3.5-5.0) g/dL Ur Specific [place] (1.001-1.035) Urine Protein (Negative) Crossmatch 11/23/19 11/23/19 11/23/19 Range/Units 11:49 11:55 14:06 WBC (3.8-10.6) k/uL RBC (3.80-5.40) m/uL Hgb (11.4-16.0) gm/dL Hct (34.0-46.0) % MCV (80.0-100.0) fL MCH (25.0-35.0) pg RDW (11.5-15.5) % Plt Count (150-450) k/uL Neutrophils # (Manual) (1.3-7.7) k/uL Lymphocytes # (Manual) (1.0-4.8) k/uL Nucleated RBCs (0-0) /100 WBC Macrocytosis PT (9.0-12.0) sec INR (<1.2) Fibrinogen 1037 H (200-500) mg/dL ABG pH (7.35-7.45) ABG pO2 (83-108) mmHg ABG HCO3 (21-25) mmol/L ABG Total CO2 (19-24) mmol/L ABG O2 Saturation (94-97) % Carbon Dioxide (22-30) mmol/L BUN (7-17) mg/dL Creatinine (0.52-1.04) mg/dL Glucose (74-99) mg/dL POC Glucose (mg/dL) (75-99) mg/dL Plasma Lactic Acid Yaya (0.7-2.0) mmol/L Total Bilirubin (0.2-1.3) mg/dL Unconjugated Bilirubin (0.0-1.1) mg/dL Delta Bilirubin (0.0-0.2) mg/dL Lactate Dehydrogenase (313-618) U/L Troponin I (0.000-0.034) ng/mL Total Protein (6.3-8.2) g/dL Albumin (3.5-5.0) g/dL Ur Specific [place] >1.050 H (1.001-1.035) Urine Protein Trace H (Negative) Crossmatch See Detail 11/23/19 11/23/19 11/23/19 Range/Units 14:43 17:29 20:25 WBC 1.2 L* (3.8-10.6) k/uL RBC 1.54 L (3.80-5.40) m/uL Hgb 5.5 L* (11.4-16.0) gm/dL Hct 15.7 L* (34.0-46.0) % MCV 101.4 H (80.0-100.0) fL MCH 35.3 H (25.0-35.0) pg RDW 19.3 H (11.5-15.5) % Plt Count 52 L (150-450) k/uL Neutrophils # (Manual) 0.20 L* (1.3-7.7) k/uL Lymphocytes # (Manual) 0.71 L (1.0-4.8) k/uL Nucleated RBCs 1 H (0-0) /100 WBC Macrocytosis PT (9.0-12.0) sec INR (<1.2) Fibrinogen (200-500) mg/dL ABG pH 7.49 H (7.35-7.45) ABG pO2 137 H (83-108) mmHg ABG HCO3 27 H (21-25) mmol/L ABG Total CO2 28 H (19-24) mmol/L ABG O2 Saturation 99.3 H (94-97) % Carbon Dioxide (22-30) mmol/L BUN (7-17) mg/dL Creatinine (0.52-1.04) mg/dL Glucose (74-99) mg/dL POC Glucose (mg/dL) 158 H (75-99) mg/dL Plasma Lactic Acid Yaya (0.7-2.0) mmol/L Total Bilirubin (0.2-1.3) mg/dL Unconjugated Bilirubin (0.0-1.1) mg/dL Delta Bilirubin (0.0-0.2) mg/dL Lactate Dehydrogenase (313-618) U/L Troponin I (0.000-0.034) ng/mL Total Protein (6.3-8.2) g/dL Albumin (3.5-5.0) g/dL Ur Specific [place] (1.001-1.035) Urine Protein (Negative) Crossmatch 11/23/19 11/23/19 Range/Units 20:25 20:25 WBC (3.8-10.6) k/uL RBC (3.80-5.40) m/uL Hgb (11.4-16.0) gm/dL Hct (34.0-46.0) % MCV (80.0-100.0) fL MCH (25.0-35.0) pg RDW (11.5-15.5) % Plt Count (150-450) k/uL Neutrophils # (Manual) (1.3-7.7) k/uL Lymphocytes # (Manual) (1.0-4.8) k/uL Nucleated RBCs (0-0) /100 WBC Macrocytosis PT (9.0-12.0) sec INR (<1.2) Fibrinogen (200-500) mg/dL ABG pH (7.35-7.45) ABG pO2 (83-108) mmHg ABG HCO3 (21-25) mmol/L ABG Total CO2 (19-24) mmol/L ABG O2 Saturation (94-97) % Carbon Dioxide (22-30) mmol/L BUN (7-17) mg/dL Creatinine (0.52-1.04) mg/dL Glucose (74-99) mg/dL POC Glucose (mg/dL) (75-99) mg/dL Plasma Lactic Acid Yaya (0.7-2.0) mmol/L Total Bilirubin 2.0 H (0.2-1.3) mg/dL Unconjugated Bilirubin 1.3 H (0.0-1.1) mg/dL Delta Bilirubin 0.7 H (0.0-0.2) mg/dL Lactate Dehydrogenase 996 H (313-618) U/L Troponin I 0.043 H* (0.000-0.034) ng/mL Total Protein (6.3-8.2) g/dL Albumin (3.5-5.0) g/dL Ur Specific [place] (1.001-1.035) Urine Protein (Negative) Crossmatch Chest x-ray: report reviewed CT scan - chest: report reviewed Assessment and Plan (1) Acute respiratory failure with hypoxia Narrative/Plan: The exact etiology of her presentation is somewhat unclear. CTA was negative for any evidence of PE but did show bilateral infiltrates. There was concern for fluid overload and the patient has been started on diuresis. However on exam she did not have any significant basilar crackles or JVD. There was no leg swelling or significant orthopnea. The onset has been quite gradual as noted. There is no prior cardiac history. Other possibilities include pneumonitis due to medication. Her current medication has not been associated with pneumonitis, but her previous regimen, of the same family has been known to cause pneumonitis. However she thinks that she has been on this current regimen for at least a few months prior to development of her symptoms. If her symptoms do not improve or diuresis and antibiotic, it would be reasonable to give her a trial of steroid An infectious causes not ruled out, but the patient has no other associated symptoms such as fevers or chills. She has been started on antibiotic already. Recurrence of the malignancy with lymphangitic spread is also a possibility, though the radiologic appearance is not necessarily consistent with the same. Tumor markers will be checked (though breast cancer tumor markers may be falsely elevated with lung inflammation). If significantly elevated, and the patient is not responding to treatment for other causes, then this possibility may become more likely. The patient had a previous CAT scans done in 09/29 in the [facility]. She states that she was not told of any specific abnormality. That report will be requested. Current Visit: Yes Status: Acute Code(s): J96.01 - ACUTE RESPIRATORY FAILURE WITH HYPOXIA SNOMED Code(s): 36319434 (2) Pancytopenia Narrative/Plan: According to the patient this is a new problem. She has had some cytopenias previously on chemotherapy but not as severe. Drug-induced affect Is the main possibility, as P MARTINA inhibitors can cause severe cytopenias occasionally. In addition the patient was also on doxycycline about 10 days ago for possible cellulitis. Other causes such as viral suppression are not ruled out at this time. - Supportive transfusions to keep hemoglobin greater than 7, and platelets greater than 10 - The patient will be started on white cell growth factors as ANC is less than 500 - Full pancytopenia workup to rule out other causes has been ordered. 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 According to the history provided by the patient and her family she has had definitive treatment for her cancers with no evidence of recurrence since 2016. At the time of my evaluation results of prior imaging studies, or physicians nodes were not available and have been requested. As there is a definite possibility of her regimen causing her pancytopenia, this will be placed on hold currently. Current Visit: Yes Status: Acute Code(s): Z15.09 - GENETIC SUSCEPTIBILITY TO OTHER MALIGNANT NEOPLASM SNOMED Code(s): 850202699 Plan: Defer to the admitting service and other consultants for management of her other medical problem
[2019-11-24] MEDS ORDERED: QUEtiapine 50 MG TAB PO STA (00:23)
[2019-11-24] MEDS ORDERED: FUROSEMIDE 10 MG/ML 2 ML VIAL IV ONE ×2 (01:30→13:30)
[2019-11-24 02:25] LABS: Reticulocyte % 1.05 % (0.10-1.80)
[2019-11-24 03:13] LABS: Protein, Total 6.3 g/dL (6.2-8.2)
[2019-11-24] MEDS: SODIUM CHLORIDE 0.9% 1,000 ML IV SCH ×2 (03:23→15:15)
[2019-11-24] MEDS: ALPRAZolam 1 MG TAB PO PRN (04:46)
[2019-11-24 05:12] LABS: Anisocytosis Slight; MCH 33.5 pg (25.0-35.0); MCHC 34.9 g/dL (31.0-37.0); Macrocytosis Slight; Mean Platelet Volume 9.4; Platelet Count 47 k/uL (150-450); RBC 2.06 m/uL (3.80-5.40)
[2019-11-24 05:14] LABS: HCT 19.8 % (34.0-46.0); HGB 6.9 gm/dL (11.4-16.0); WBC 0.8 k/uL (3.8-10.6)
[2019-11-24 05:20] LABS: Albumin 3.2 g/dL (3.5-5.0); Calcium 8.4 mg/dL (8.4-10.2); Magnesium 1.3 mg/dL (1.6-2.3); Potassium 2.9 mmol/L (3.5-5.1); Total Bilirubin 2.3 mg/dL (0.2-1.3); Total Protein 6.2 g/dL (6.3-8.2)
[2019-11-24] MEDS: POTASSIUM CHLORIDE 20 MEQ in WATER FOR INJECTION 1 100ML.BAG IVPB SCH ×3 (05:41→12:01)
[2019-11-24] MEDS: MAGNESIUM SULFATE-D5W PMX 1 GM in DEXTROSE/WATER 1 100ML.BAG IVPB SCH ×5 (05:42→19:37)
[2019-11-24] MEDS ORDERED: POTASSIUM CHLORIDE ER 20 MEQ TAB.ER PO SCH (06:00)
[2019-11-24 07:09] LABS: ABG Base Excess 5.9 mmol/L; ABG HCO3 29 mmol/L (21-25); ABG Oxygen Saturation 97.6 % (94-97); ABG PCO2 34 mmHg (35-45); ABG PH 7.53 (7.35-7.45); ABG PO2 82 mmHg (83-108); ABG TCO2 30 mmol/L (19-24); Allen Test Performed? Yes
[2019-11-24] MEDS: IPRATROPIUM-ALBUTEROL 3 ML NEB INHALATION SCH ×4 (07:20→19:32)
--- NOTE | 2019-11-24 07:46 | XR ---
EXAMINATION TYPE: XR chest 1V DATE OF EXAM: 11/24/2019 COMPARISON: 11/23/2019 HISTORY: Shortness of breath TECHNIQUE: Single frontal view of the chest is obtained. FINDINGS: Progressive diffuse bilateral infiltrative process and tiny pleural effusion. Heart size s table. No pneumothorax. IMPRESSION: Diffuse airspace disease bilaterally may been the basis of diffuse pneumonia. Pulmonary edema not excluded correlate clinically.
[2019-11-24 07:47] LABS: Free Kappa Lt Chain Qnt, Serum 2.02 mg/dL (0.33-1.94)
[2019-11-24] MEDS ORDERED: AZITHROMYCIN 500 MG TAB PO SCH (09:00)
[2019-11-24] MEDS: PANTOPRAZOLE 40 MG/10 ML VIAL IVP SCH ×2 (10:08→21:23)
[2019-11-24] MEDS: FILGRASTIM-SNDZ 480 MCG/0.8 ML SYRINGE SQ SCH (10:09)
--- NOTE | 2019-11-24 10:50 | P.PN ---
Subjective Progress Note Date: 11/24/19 On 11/24/2019 patient seen in follow-up in the intensive care unit. She remains on BiPAP support, with pressures of 12 and 5, and FiO2 of 40%, still dyspneic, but doing slightly better, not tolerating BiPAP support very well. This was pointed gases were reviewed, showing pO2 of 82, pCO2 34, and pH of 7.53. Patient is afebrile, she remains on empiric antibiotics in the form of Azactam, Levaquin, infectious disease is following. Patient did receive 2 units of blood yesterday for a hemoglobin of 6.9, she will receive another unit of packed red blood cells this morning, she was given a dose of IV Lasix after transfusion of the 2 units of blood at 5:00 in the morning. She is diuresing, and she is in the 3825 mL fluid balance over the last 24 hours. Today's chest x-ray has been reviewed, showing diffuse airspace disease bilaterally be related to pneumonia or pulmonary edema. Echocardiogram is pending, cardiology has been consulted. Patient denies any chest pain right now. Blood cultures have been sent and are pending at this time, Legionella urine antigen and pro-calcitonin are pending. Hematology service is consulted, patient's home medication Rucaparib for history of breast cancer is currently on hold. Patient is tachycardic on the monitor in sinus mechanism with a rate of 120 BPM, blood pressures 111/64, lung sounds are diminished, with fine crackles at the bases. She's been afebrile. His labs have been reviewed, showing white blood cell count of 0.8, hemoglobin is 6.9, pl atelet count is 47, sodium is 137, potassium is 2.9, chloride is 96, CO2 is 29, BUN is 18 and creatinine of 0.8. Troponins are 0.049, 0.043, and 0.053. Objective - Vital Signs Vital signs: Vital Signs Temp 98.3 F 11/24/19 10:18 Pulse 116 H 11/24/19 10:18 Resp 20 11/24/19 10:18 BP 111/64 11/24/19 10:18 Pulse Ox 97 11/24/19 10:18 Intake & Output 11/23/19 11/24/19 11/24/19 18:59 06:59 18:59 Intake Total 610 1460 1300 Output Total 800 5105 410 Balance -056 -4109 890 Weight 99.79 kg 99.6 kg Intake: IV 300 900 300 Sodium Chloride 0.9% 1, 300 900 300 000 ml @ 75 mls/hr IV . [id number] [facility] Rx#:[id number] Intake, IV Titration 100 500 Amount Levofloxacin 500Mg-D5w 100 Pmx 500 mg In Dextrose/ Water 1 100ml.bag @ 100 mls/hr IVPB Q24H [facility] Rx#: [id number] Magnesium Sulfate-D5w Pmx 300 1 gm In Dextrose/Water 1 100ml.bag @ 100 mls/hr IVPB Q1H [facility] Rx#: [id number] Potassium Chloride 20 meq 200 In Water For Injection 1 100ml.bag @ 50 mls/hr IVPB Q2H [facility] Rx#: [id number] Oral 150 Blood Product 310 310 500 Rc As-1 Unit 0 [id number] Rc As-1 Unit 310 [id number] Rc As-1 Unit 310 [id number] Output: Urine 800 5105 410 Uretheral (Tom) 200 Other: Voiding Method Indwelling Catheter Indwelling Catheter Indwelling Catheter - Exam GENERAL EXAM: Alert, 53-year-old white female, on BiPAP support, dyspneic at rest, tachycardic in sinus mechanism with a rate of 120 BPM, BiPAP support with pressures of 12/5, and FiO2 of 40% comfortable in no apparent distress. HEAD: Normocephalic/atraumatic. EYES: Normal reaction of pupils, equal size. Conjunctiva pink, sclera white. NOSE: Clear with pink turbinates. THROAT: No erythema or exudates. NECK: No masses, no JVD, no thyroid enlargement, no adenopathy. CHEST: No chest wall deformity. Symmetrical expansion. LUNGS: Equal air entry with no crackles, wheeze, rhonchi or dullness. CVS: Regular rate and rhythm, normal S1 and S2, no gallops, no murmurs, no rubs ABDOMEN: Soft, nontender. No hepatosplenomegaly, normal bowel sounds, no guarding or rigidity. EXTREMITIES: No clubbing, no edema, no cyanosis, 2+ pulses and upper and lower extremities. MUSCULOSKELETAL: Muscle strength and tone normal. SPINE: No scoliosis or deformity SKIN: No rashes CENTRAL NERVOUS SYSTEM: Alert and oriented -3. No focal deficits, tone is normal in all 4 extremities. PSYCHIATRIC: Alert and oriented -3. Appropriate affect. Intact judgment and insight. - Labs CBC & Chem 7: 11/24/19 04:25 11/24/19 04:25 Labs: Abnormal Lab Results - Last 24 Hours (Table) 11/23/19 11/23/19 11/23/19 Range/Units 11:46 11:49 11:49 WBC 1.3 L* (3.8-10.6) k/uL RBC 1.40 L (3.80-5.40) m/uL Hgb 5.2 L* (11.4-16.0) gm/dL Hct 14.9 L* (34.0-46.0) % MCV 106.1 H (80.0-100.0) fL MCH 37.0 H (25.0-35.0) pg RDW 18.5 H (11.5-15.5) % Plt Count 60 L (150-450) k/uL Neutrophils # (Manual) 0.20 L* (1.3-7.7) k/uL Lymphocytes # (Manual) 0.74 L (1.0-4.8) k/uL Nucleated RBCs (0-0) /100 WBC Macrocytosis Marked A Haptoglobin (31.2-198.0) mg/dL PT (9.0-12.0) sec INR (<1.2) Fibrinogen (200-500) mg/dL ABG pH (7.35-7.45) ABG pCO2 (35-45) mmHg ABG pO2 (83-108) mmHg ABG HCO3 (21-25) mmol/L ABG Total CO2 (19-24) mmol/L ABG O2 Saturation (94-97) % Potassium (3.5-5.1) mmol/L Chloride (98-107) mmol/L Carbon Dioxide 20 L (22-30) mmol/L BUN 23 H (7-17) mg/dL Creatinine 1.15 H (0.52-1.04) mg/dL Glucose 146 H (74-99) mg/dL POC Glucose (mg/dL) 159 H (75-99) mg/dL Plasma Lactic Acid Yaya (0.7-2.0) mmol/L Magnesium (1.6-2.3) mg/dL Total Bilirubin 1.7 H (0.2-1.3) mg/dL Unconjugated Bilirubin (0.0-1.1) mg/dL Delta Bilirubin (0.0-0.2) mg/dL Lactate Dehydrogenase (313-618) U/L Troponin I (0.000-0.034) ng/mL Total Protein 6.2 L (6.3-8.2) g/dL Albumin 3.3 L (3.5-5.0) g/dL Ur Specific [place] (1.001-1.035) Urine Protein (Negative) Free [place] LC, Quant (0.33-1.94) mg/dL Crossmatch 11/23/19 11/23/19 11/23/19 Range/Units 11:49 11:49 11:49 WBC (3.8-10.6) k/uL RBC (3.80-5.40) m/uL Hgb (11.4-16.0) gm/dL Hct (34.0-46.0) % MCV (80.0-100.0) fL MCH (25.0-35.0) pg RDW (11.5-15.5) % Plt Count (150-450) k/uL Neutrophils # (Manual) (1.3-7.7) k/uL Lymphocytes # (Manual) (1.0-4.8) k/uL Nucleated RBCs (0-0) /100 WBC Macrocytosis Haptoglobin (31.2-198.0) mg/dL PT 12.3 H (9.0-12.0) sec INR 1.2 H (<1.2) Fibrinogen (200-500) mg/dL ABG pH (7.35-7.45) ABG pCO2 (35-45) mmHg ABG pO2 (83-108) mmHg ABG HCO3 (21-25) mmol/L ABG Total CO2 (19-24) mmol/L ABG O2 Saturation (94-97) % Potassium (3.5-5.1) mmol/L Chloride (98-107) mmol/L Carbon Dioxide (22-30) mmol/L BUN (7-17) mg/dL Creatinine (0.52-1.04) mg/dL Glucose (74-99) mg/dL POC Glucose (mg/dL) (75-99) mg/dL Plasma Lactic Acid Yaya 7.5 H* (0.7-2.0) mmol/L Magnesium (1.6-2.3) mg/dL Total Bilirubin (0.2-1.3) mg/dL Unconjugated Bilirubin (0.0-1.1) mg/dL Delta Bilirubin (0.0-0.2) mg/dL Lactate Dehydrogenase (313-618) U/L Troponin I 0.049 H* (0.000-0.034) ng/mL Total Protein (6.3-8.2) g/dL Albumin (3.5-5.0) g/dL Ur Specific [place] (1.001-1.035) Urine Protein (Negative) Free [place] LC, Quant (0.33-1.94) mg/dL Crossmatch 11/23/19 11/23/19 11/23/19 Range/Units 11:49 11:55 14:06 WBC (3.8-10.6) k/uL RBC (3.80-5.40) m/uL Hgb (11.4-16.0) gm/dL Hct (34.0-46.0) % MCV (80.0-100.0) fL MCH (25.0-35.0) pg RDW (11.5-15.5) % Plt Count (150-450) k/uL Neutrophils # (Manual) (1.3-7.7) k/uL Lymphocytes # (Manual) (1.0-4.8) k/uL Nucleated RBCs (0-0) /100 WBC Macrocytosis Haptoglobin (31.2-198.0) mg/dL PT (9.0-12.0) sec INR (<1.2) Fibrinogen 1037 H (200-500) mg/dL ABG pH (7.35-7.45) ABG pCO2 (35-45) mmHg ABG pO2 (83-108) mmHg ABG HCO3 (21-25) mmol/L ABG Total CO2 (19-24) mmol/L ABG O2 Saturation (94-97) % Potassium (3.5-5.1) mmol/L Chloride (98-107) mmol/L Carbon Dioxide (22-30) mmol/L BUN (7-17) mg/dL Creatinine (0.52-1.04) mg/dL Glucose (74-99) mg/dL POC Glucose (mg/dL) (75-99) mg/dL Plasma Lactic Acid Yaya (0.7-2.0) mmol/L Magnesium (1.6-2.3) mg/dL Total Bilirubin (0.2-1.3) mg/dL Unconjugated Bilirubin (0.0-1.1) mg/dL Delta Bilirubin (0.0-0.2) mg/dL Lactate Dehydrogenase (313-618) U/L Troponin I (0.000-0.034) ng/mL Total Protein (6.3-8.2) g/dL Albumin (3.5-5.0) g/dL Ur Specific [place] >1.050 H (1.001-1.035) Urine Protein Trace H (Negative) Free [place] LC, Quant (0.33-1.94) mg/dL Crossmatch See Detail 11/23/19 11/23/19 11/23/19 Range/Units 14:43 17:29 20:25 WBC 1.2 L* (3.8-10.6) k/uL RBC 1.54 L (3.80-5.40) m/uL Hgb 5.5 L* (11.4-16.0) gm/dL Hct 15.7 L* (34.0-46.0) % MCV 101.4 H (80.0-100.0) fL MCH 35.3 H (25.0-35.0) pg RDW 19.3 H (11.5-15.5) % Plt Count 52 L (150-450) k/uL Neutrophils # (Manual) 0.20 L* (1.3-7.7) k/uL Lymphocytes # (Manual) 0.71 L (1.0-4.8) k/uL Nucleated RBCs 1 H (0-0) /100 WBC Macrocytosis Haptoglobin (31.2-198.0) mg/dL PT (9.0-12.0) sec INR (<1.2) Fibrinogen (200-500) mg/dL ABG pH 7.49 H (7.35-7.45) ABG pCO2 (35-45) mmHg ABG pO2 137 H (83-108) mmHg ABG HCO3 27 H (21-25) mmol/L ABG Total CO2 28 H (19-24) mmol/L ABG O2 Saturation 99.3 H (94-97) % Potassium (3.5-5.1) mmol/L Chloride (98-107) mmol/L Carbon Dioxide (22-30) mmol/L BUN (7-17) mg/dL Creatinine (0.52-1.04) mg/dL Glucose (74-99) mg/dL POC Glucose (mg/dL) 158 H (75-99) mg/dL Plasma Lactic Acid Yaya (0.7-2.0) mmol/L Magnesium (1.6-2.3) mg/dL Total Bilirubin (0.2-1.3) mg/dL Unconjugated Bilirubin (0.0-1.1) mg/dL Delta Bilirubin (0.0-0.2) mg/dL Lactate Dehydrogenase (313-618) U/L Troponin I (0.000-0.034) ng/mL Total Protein (6.3-8.2) g/dL Albumin (3.5-5.0) g/dL Ur Specific [place] (1.001-1.035) Urine Protein (Negative) Free [place] LC, Quant (0.33-1.94) mg/dL Crossmatch 11/23/19 11/23/19 11/23/19 Range/Units 20:25 20:25 20:25 WBC (3.8-10.6) k/uL RBC (3.80-5.40) m/uL Hgb (11.4-16.0) gm/dL Hct (34.0-46.0) % MCV (80.0-100.0) fL MCH (25.0-35.0) pg RDW (11.5-15.5) % Plt Count (150-450) k/uL Neutrophils # (Manual) (1.3-7.7) k/uL Lymphocytes # (Manual) (1.0-4.8) k/uL Nucleated RBCs (0-0) /100 WBC Macrocytosis Haptoglobin 566.0 H (31.2-198.0) mg/dL PT (9.0-12.0) sec INR (<1.2) Fibrinogen (200-500) mg/dL ABG pH (7.35-7.45) ABG pCO2 (35-45) mmHg ABG pO2 (83-108) mmHg ABG HCO3 (21-25) mmol/L ABG Total CO2 (19-24) mmol/L ABG O2 Saturation (94-97) % Potassium (3.5-5.1) mmol/L Chloride (98-107) mmol/L Carbon Dioxide (22-30) mmol/L BUN (7-17) mg/dL Creatinine (0.52-1.04) mg/dL Glucose (74-99) mg/dL POC Glucose (mg/dL) (75-99) mg/dL Plasma Lactic Acid Yaya (0.7-2.0) mmol/L Magnesium (1.6-2.3) mg/dL Total Bilirubin 2.0 H (0.2-1.3) mg/dL Unconjugated Bilirubin 1.3 H (0.0-1.1) mg/dL Delta Bilirubin 0.7 H (0.0-0.2) mg/dL Lactate Dehydrogenase 996 H (313-618) U/L Troponin I 0.043 H* (0.000-0.034) ng/mL Total Protein (6.3-8.2) g/dL Albumin (3.5-5.0) g/dL Ur Specific [place] (1.001-1.035) Urine Protein (Negative) Free [place] LC, Quant (0.33-1.94) mg/dL Crossmatch 11/23/19 11/24/19 11/24/19 Range/Units 20:25 04:25 04:25 WBC 0.8 L* (3.8-10.6) k/uL RBC 2.06 L (3.80-5.40) m/uL Hgb 6.9 L* (11.4-16.0) gm/dL Hct 19.8 L* (34.0-46.0) % MCV (80.0-100.0) fL MCH (25.0-35.0) pg RDW 19.0 H (11.5-15.5) % Plt Count 47 L (150-450) k/uL Neutrophils # (Manual) (1.3-7.7) k/uL Lymphocytes # (Manual) (1.0-4.8) k/uL Nucleated RBCs (0-0) /100 WBC Macrocytosis Haptoglobin (31.2-198.0) mg/dL PT (9.0-12.0) sec INR (<1.2) Fibrinogen (200-500) mg/dL ABG pH (7.35-7.45) ABG pCO2 (35-45) mmHg ABG pO2 (83-108) mmHg ABG HCO3 (21-25) mmol/L ABG Total CO2 (19-24) mmol/L ABG O2 Saturation (94-97) % Potassium 2.9 L (3.5-5.1) mmol/L Chloride 96 L (98-107) mmol/L Carbon Dioxide (22-30) mmol/L BUN 18 H (7-17) mg/dL Creatinine (0.52-1.04) mg/dL Glucose 115 H (74-99) mg/dL POC Glucose (mg/dL) (75-99) mg/dL Plasma Lactic Acid Yaya (0.7-2.0) mmol/L Magnesium 1.3 L (1.6-2.3) mg/dL Total Bilirubin 2.3 H (0.2-1.3) mg/dL Unconjugated Bilirubin (0.0-1.1) mg/dL Delta Bilirubin (0.0-0.2) mg/dL Lactate Dehydrogenase (313-618) U/L Troponin I (0.000-0.034) ng/mL Total Protein 6.2 L (6.3-8.2) g/dL Albumin 3.2 L (3.5-5.0) g/dL Ur Specific [place] (1.001-1.035) Urine Protein (Negative) Free [place] LC, Quant 2.02 H (0.33-1.94) mg/dL Crossmatch 11/24/19 11/24/19 Range/Units 04:25 07:00 WBC (3.8-10.6) k/uL RBC (3.80-5.40) m/uL Hgb (11.4-16.0) gm/dL Hct (34.0-46.0) % MCV (80.0-100.0) fL MCH (25.0-35.0) pg RDW (11.5-15.5) % Plt Count (150-450) k/uL Neutrophils # (Manual) (1.3-7.7) k/uL Lymphocytes # (Manual) (1.0-4.8) k/uL Nucleated RBCs (0-0) /100 WBC Macrocytosis Haptoglobin (31.2-198.0) mg/dL PT (9.0-12.0) sec INR (<1.2) Fibrinogen (200-500) mg/dL ABG pH 7.53 H (7.35-7.45) ABG pCO2 34 L (35-45) mmHg ABG pO2 82 L (83-108) mmHg ABG HCO3 29 H (21-25) mmol/L ABG Total CO2 30 H (19-24) mmol/L ABG O2 Saturation 97.6 H (94-97) % Potassium (3.5-5.1) mmol/L Chloride (98-107) mmol/L Carbon Dioxide (22-30) mmol/L BUN (7-17) mg/dL Creatinine (0.52-1.04) mg/dL Glucose (74-99) mg/dL POC Glucose (mg/dL) (75-99) mg/dL Plasma Lactic Acid Yaya (0.7-2.0) mmol/L Magnesium (1.6-2.3) mg/dL Total Bilirubin (0.2-1.3) mg/dL Unconjugated Bilirubin (0.0-1.1) mg/dL Delta Bilirubin (0.0-0.2) mg/dL Lactate Dehydrogenase (313-618) U/L Troponin I 0.053 H* (0.000-0.034) ng/mL Total Protein (6.3-8.2) g/dL Albumin (3.5-5.0) g/dL Ur Specific [place] (1.001-1.035) Urine Protein (Negative) Free [place] LC, Quant (0.33-1.94) mg/dL Crossmatch Assessment and Plan Plan: Assessment: #1. Acute hypoxemic respiratory failure likely related to interstitial pneumonia or pulmonary edema or combination of both, echocardiogram is pending, and his empirical covered with antibiotics #2. Sinus tachycardia secondary to respiratory distress #3. Rule out congestive heart failure, echocardiogram is pending #4. History of ovarian cancer, status post bilateral salpingo-oophorectomy and hysterectomy, with prior multiple chemotherapeutic agents and radiation, currently on Rubraca #5. Pancytopenia #6. History of left breast cancer, status post bilateral radical mastectomy #7. Obesity #8. Elevated troponins rule out non-ST elevated myocardial infarction Plan: Continue current medical treatment, continue current antibiotics, cardiogram is pending, patient will receive an additional 60 of Lasix this morning after the third unit of blood has been infused. Today's chest x-ray has been reviewed and still showing diffuse airspace disease bilaterally. We'll place the patient on Airvo or high flow, may use BiPAP intermittently. We will continue to follow, GI and DVT prophylaxis, and further input from cardiology, hematology and infectious disease services, cultures are pending. We'll continue total I performed a history & physical examination of the patient and discussed their management with my nurse practitioner, Audrey Guzman. I reviewed the nurse practitioner's note and agree with the documented findings and plan of care. Lung sounds are positive for diminished breath sounds. The findings and the impression was discussed with the patient. I attest to the documentation by the nurse practitioner. Time with Patient: Greater than 30
--- NOTE | 2019-11-24 11:29 | CONS ---
CONSULTATION CHIEF COMPLAINT: Shortness of breath. Laurie is a 53-year-old lady with history of breast cancer on chemotherapy, who presented to the hospital with shortness of breath, tachycardia, and pancytopenia. Cardiology has been consulted for her tachycardia and shortness of breath. The patient's chest x- ray shows bilateral interstitial prominence. She appears short of breath and is tachycardic at rest. There is no prior cardiac history. There is no history of congestive heart failure, coronary artery disease or valvular heart disease. Her clinical presentation is more consistent with noncardiogenic pulmonary edema including interstitial spread of her cancer. She has been treated with intravenous diuretics without significant change in her symptoms and her physical exam does not reveal significant crackles. She is tachycardic secondary to the underlying multiple medical problems. She is in sinus rhythm does not have any cardiac arrhythmia. I am waiting on the echo results at this time. She is severely anemic and had received blood transfusion. PAST MEDICAL HISTORY: Significant for metastatic breast cancer. MEDICATIONS: Medications at home include Cymbalta, Tenormin, Neurontin, Lasix, [place], Motrin, Seroquel, Benadryl, and BuSpar. ALLERGIES: Allergies are as charted. FAMILY HISTORY: Negative for premature coronary artery disease. SOCIAL HISTORY: Negative for current smoking, EtOH abuse, or drug abuse. REVIEW OF SYSTEMS: HEENT is unremarkable. CARDIAC: As described above. RESPIRATORY: As described above. GI: Negative. GENITOURINARY: Negative. PSYCHOSOCIAL: Negative. ENDOCRINE: Negative. DERM: Negative. CONSTITUTIONAL: As described above. HEMATOLOGICAL: Significant for acute anemia. ONCOLOGICAL: Significant for breast and ovarian cancer. Rest of the system review is not relevant. PHYSICAL EXAMINATION: On exam, heart rate is 114 beats per minute, blood pressure 111/64, respiratory rate is 18. Chest exam reveals diminished air entry at the bases. I do not hear any crackles suggestive of pulmonary edema. Heart exam reveals first and second heart sounds. No gallop. No murmur. Abdomen is soft. Examination of extremities did not reveal any edema. LABS: Labs showed that the hemoglobin is 6.9, platelet count is 47, white cell count was 0.8, potassium is low at 2.9, creatinine is 0.8. Troponins are mildly elevated at 0.04, 0.04 and 0.05. ASSESSMENT: 1. Shortness of breath probably noncardiac in origin. 2. Elevated troponin secondary to underlying cancer. 3. History of breast and ovarian cancer. 4. Pancytopenia. PLAN: I will obtain a 2D echo to assess her LV function. Use Lasix as needed. I do not believe we are dealing with congestive heart failure. Elevated troponin is not suggestive of acute myocardial ischemia. MMODL / IJN: [id number] /
[2019-11-24] MEDS: AZTREONAM 2 GM in SODIUM CHLORIDE 0.9% 100 ML IVPB SCH ×2 (12:02→17:02)
[2019-11-24] MEDS ORDERED: FUROSEMIDE 10 MG/ML 4 ML VIAL IV ONE (13:00)
[2019-11-24 13:02] LABS: CA27.29 Breast Ca Marker 7.7 U/mL (0.0-38.5)
[2019-11-24 13:42] LABS: Cancer Antigen 153 2.9 U/mL (0.0-32.3)
[2019-11-24 13:45] LABS: Ferritin 1536.9 ng/mL (10.0-291.0)
--- NOTE | 2019-11-24 14:06 | P.CN ---
Psychiatric Consult - . Consult date: 11/24/19 Consult:: 11/24/19 13:52 IDENTIFYING DATA: This patient is a 53-year-old female who has 2 kids and is currently and lives with her . HISTORY OF PRESENT ILLNESS: The patient presented to the hospital with complaints of generalized weakness, shortness of breath and tachycardia. Patient was found to be pancytopenic and neutropenic. Patient had elevated troponins and was also admitted for heart failure and respiratory failure. Psychiatry was consulted for depression and anxiety. Dray Truck Driver spoke with nurse at the bedside who states that patient complained of chronic depression and mentions suicidal ideations yesterday related to her pain. Patient was seen at the bedside with a sitter and also her and patient appeared to be in aggravating pain and rolling in her bed and pleading with the personal lines underwriter to start pa in medications for her. When I asked more about the pain she states that she has been taking [place]'s at home however has been weaned down by her primary care physician. She states that she takes 7.5 mg twice a day and has been off it since she been in the hospital. She states that her pain is a "10/10" and is mainly in her right lower quadrant. Patient claims that her depression and suicidal remarks were directly related to her pain and states that if she does not get her pain medications then she will feel more suicidal and depressed. She states that "I have a lot to live for I want to see my grandbabies". Patient states that everything at home is fine and denies any problems other than going to the grief of her cousin who committed suicide in November 2018. She states that she goes to and follows up with Dr. Pulido for outpatient psychiatric services. She states that she has been taking her medications regularly at home up until coming to the hospital. She admits to anxiety r elated to her pain and poor sleep related to pain. At this time patient denies any homical ideations, intent or plan however did state that she feels suicidal with no plan and is related to her pain. Patient denies any auditory, visual hallucinations and denies any paranoia or delusions. Patients denies using any drugs alcohol or cigarettes. PAST PSYCHIATRIC HISTORY: Depression and anxiety. Patient sees Dr Pulido as an outpatient. She denies any previous psychiatric admissions. She denies any previous suicide attempts. PAST MEDICAL HISTORY: Ovarian cancer which she states is in remission. ALLERGIES: as per EMR. CHEMICAL DEPENDENCY HISTORY: as per HPI. FAMILY PSYCHIATRIC/SUBSTANCE USE HISTORY: She states that her aunt and her cousin committed suicide. SOCIAL HISTORY: She states that she has born and raised in [facility] and obtained her masters degree in education. Patient states that she has 2 kids is currently and lives with her . MENTAL STATUS EXAM: General Appearance: Patient appears to be stated age is alert, and appears to be in significant distress secondary to pain in his rolling around in her bed. Patient appears to have fair hygiene and grooming wearing hospital gown with poor eye contact. Behavior: Patient is rolling in her bed in significant distress secondary to pain. Speech: Patient's speech is fluent and nonpressured. Mood/Affect: Patient reports their mood is "depressed and in pain", affect is congruent Suicidality/Homicidality: Patient denies having any homicidal ideation intent or plan. Patient admits to suicidal ideations related to her pain and denies any plan. Perceptions: Patient denies any visual hallucinations and denies any auditory hallucinations Though content/process: There is no evidence of any delusional thought content and thought process is linear and goal-directed. Memory and concentration: AOX3, grossly intact for the purposes of this session. Can spell "WORLD" backwards Judgment and insight: Limited IMPRESSIONS: Depressive disorder unspecified, rule out secondary to general medical condition, cancer, pain etc. Anxiety disorder unspecified PLAN: -At this time patient DOES NOT meet criteria for inpatient psychiatric admission. -Depression and suicidal ideations are likely related to patient's general medical condition and pain that she is experiencing. Once pain control is man aged patient's depression/suicidal ideations are likely to subside. -Would recommend the following medication changes/additions: Restarted patient's Seroquel 50 mg daily at bedtime for mood stabilization/sleep. Restarted patient's Cymbalta 90 mg daily for mood/pain. BuSpar restarted at 10 mg twice a day for anxiety. I'll hold off on Benadryl at this time. -Continue 1:1 sitter for safety. Once patient receives adequate pain control then primary team can reevaluate if patient is still suicidal and needs one-to-one sitter. -Cannot leave AMA at this time. Patient will need a petition and certification if attempting to leave AMA. -Psychiatry will sign off at this point, his contact with any questions. Patient can follow-up with Dr. Pulido as an outpatient once discharged. 11/24/19 13:55
[2019-11-24] MEDS: HYDROcodone/APAP 7.5-325MG 1 EACH TAB PO PRN ×2 (14:12→18:26)
[2019-11-24] MEDS: DULoxetine HCL 30 MG CAPSULE.DR PO SCH (14:46)
[2019-11-24] MEDS: busPIRone HCl 10 MG TAB PO SCH ×2 (14:46→21:23)
[2019-11-24 15:32] LABS: Anisocytosis Slight; HGB 8.1 gm/dL (11.4-16.0); MCH 33.8 pg (25.0-35.0); MCHC 35.1 g/dL (31.0-37.0); MCV 96.4 fL (80.0-100.0); Macrocytosis Slight; Mean Platelet Volume 7.8; RBC 2.39 m/uL (3.80-5.40)
[2019-11-24 15:51] LABS: Potassium 3.3 mmol/L (3.5-5.1)
--- NOTE | 2019-11-24 16:14 | P.PN ---
Subjective Progress Note Date: 11/24/19 Principal diagnosis: difficulty in breathing In follow-up today patient is very anxious and tearful, she feels that she needs to have a bowel movement, she requires manual assistance with her bowel movements, this is not uncommon for her. Patient becomes more anxious the more people that are in the room. She denies nausea, SOB, her pain is in her right lower quadrant/hip area, she is unable to further define at this time. She states that if she was able to have the bowel movement and to get the pain under control she thinks that her breathing would be improved. Family is at the bedside Objective - Vital Signs Vital signs: Vital Signs Temp 100.0 F H 11/24/19 12:00 Pulse 124 H 11/24/19 15:00 Resp 28 H 11/24/19 15:00 BP 103/89 11/24/19 15:00 Pulse Ox 94 L 11/24/19 15:00 Intake & Output 11/23/19 11/24/19 11/24/19 18:59 06:59 18:59 Intake Total 610 1460 1800 Output Total 800 5105 960 Balance -190 -3645 840 Weight 99.79 kg 99.6 kg Intake: IV 300 900 600 Sodium Chloride 0.9% 1, 300 900 600 000 ml @ 75 mls/hr IV . [id number] [facility] Rx#:[id number] Intake, IV Titration 100 600 Amount Levofloxacin 500Mg-D5w 100 Pmx 500 mg In Dextrose/ Water 1 100ml.bag @ 100 mls/hr IVPB Q24H [facility] Rx#: [id number] Magnesium Sulfate-D5w Pmx 300 1 gm In Dextrose/Water 1 100ml.bag @ 100 mls/hr IVPB Q1H [facility] Rx#: [id number] Potassium Chloride 20 meq 300 In Water For Injection 1 100ml.bag @ 50 mls/hr IVPB Q2H [facility] Rx#: [id number] Oral 150 Blood Product 310 310 600 Rc As-1 Unit 300 [id number] Rc As-1 Unit 310 [id number] Rc As-1 Unit 310 [id number] Output: Urine 800 5105 960 Uretheral (Tom) 200 Other: Voiding Method Indwelling Catheter Indwelling Catheter Indwelling Catheter - Constitutional General appearance: Present: disheveled, obese, severe distress - EENT Eyes: Present: anicteric sclerae, EOMI ENT: Present: hearing grossly normal - Respiratory Respiratory: bilateral: diminished (tachypnea) - Cardiovascular Rhythm: regular Heart sounds: normal: S1, S2 - Gastrointestinal General gastrointestinal: Present: normal bowel sounds, soft, tenderness (deep palpation in the right lower quadrant area, no masses appreciated, no rebound) - Integumentary Integumentary: Present: pale - Neurologic Neurologic: Present: CNII-XII intact - Musculoskeletal Musculoskeletal: Present: generalized weakness, strength equal bilaterally - Psychiatric Psychiatric Comment(s): severe anxiety Psychiatric: Present: A&O x's 3 - Labs CBC & Chem 7: 11/24/19 15:02 11/24/19 04:25 Labs: Abnormal Lab Results - Last 24 Hours (Table) 11/23/19 11/23/19 11/23/19 Range/Units 11:49 11:55 17:29 WBC (3.8-10.6) k/uL RBC (3.80-5.40) m/uL Hgb (11.4-16.0) gm/dL Hct (34.0-46.0) % MCV (80.0-100.0) fL MCH (25.0-35.0) pg RDW (11.5-15.5) % Plt Count (150-450) k/uL Neutrophils # (Manual) (1.3-7.7) k/uL Lymphocytes # (Manual) (1.0-4.8) k/uL Nucleated RBCs (0-0) /100 WBC Haptoglobin (31.2-198.0) mg/dL Fibrinogen 1037 H (200-500) mg/dL ABG pH 7.49 H (7.35-7.45) ABG pCO2 (35-45) mmHg ABG pO2 137 H (83-108) mmHg ABG HCO3 27 H (21-25) mmol/L ABG Total CO2 28 H (19-24) mmol/L ABG O2 Saturation 99.3 H (94-97) % Potassium (3.5-5.1) mmol/L Chloride (98-107) mmol/L BUN (7-17) mg/dL Glucose (74-99) mg/dL Magnesium (1.6-2.3) mg/dL Ferritin (10.0-291.0) ng/mL Total Bilirubin (0.2-1.3) mg/dL Unconjugated Bilirubin (0.0-1.1) mg/dL Delta Bilirubin (0.0-0.2) mg/dL Lactate Dehydrogenase (313-618) U/L Troponin I (0.000-0.034) ng/mL Total Protein (6.3-8.2) g/dL Albumin (3.5-5.0) g/dL Free [place] LC, Quant (0.33-1.94) mg/dL Crossmatch See Detail 11/23/19 11/23/19 11/23/19 Range/Units 20:25 20:25 20:25 WBC 1.2 L* (3.8-10.6) k/uL RBC 1.54 L (3.80-5.40) m/uL Hgb 5.5 L* (11.4-16.0) gm/dL Hct 15.7 L* (34.0-46.0) % MCV 101.4 H (80.0-100.0) fL MCH 35.3 H (25.0-35.0) pg RDW 19.3 H (11.5-15.5) % Plt Count 52 L (150-450) k/uL Neutrophils # (Manual) 0.20 L* (1.3-7.7) k/uL Lymphocytes # (Manual) 0.71 L (1.0-4.8) k/uL Nucleated RBCs 1 H (0-0) /100 WBC Haptoglobin (31.2-198.0) mg/dL Fibrinogen (200-500) mg/dL ABG pH (7.35-7.45) ABG pCO2 (35-45) mmHg ABG pO2 (83-108) mmHg ABG HCO3 (21-25) mmol/L ABG Total CO2 (19-24) mmol/L ABG O2 Saturation (94-97) % Potassium (3.5-5.1) mmol/L Chloride (98-107) mmol/L BUN (7-17) mg/dL Glucose (74-99) mg/dL Magnesium (1.6-2.3) mg/dL Ferritin (10.0-291.0) ng/mL Total Bilirubin 2.0 H (0.2-1.3) mg/dL Unconjugated Bilirubin 1.3 H (0.0-1.1) mg/dL Delta Bilirubin 0.7 H (0.0-0.2) mg/dL Lactate Dehydrogenase 996 H (313-618) U/L Troponin I 0.043 H* (0.000-0.034) ng/mL Total Protein (6.3-8.2) g/dL Albumin (3.5-5.0) g/dL Free [place] LC, Quant (0.33-1.94) mg/dL Crossmatch 11/23/19 11/23/19 11/24/19 Range/Units 20:25 20:25 04:25 WBC 0.8 L* (3.8-10.6) k/uL RBC 2.06 L (3.80-5.40) m/uL Hgb 6.9 L* (11.4-16.0) gm/dL Hct 19.8 L* (34.0-46.0) % MCV (80.0-100.0) fL MCH (25.0-35.0) pg RDW 19.0 H (11.5-15.5) % Plt Count 47 L (150-450) k/uL Neutrophils # (Manual) (1.3-7.7) k/uL Lymphocytes # (Manual) (1.0-4.8) k/uL Nucleated RBCs (0-0) /100 WBC Haptoglobin 566.0 H (31.2-198.0) mg/dL Fibrinogen (200-500) mg/dL ABG pH (7.35-7.45) ABG pCO2 (35-45) mmHg ABG pO2 (83-108) mmHg ABG HCO3 (21-25) mmol/L ABG Total CO2 (19-24) mmol/L ABG O2 Saturation (94-97) % Potassium (3.5-5.1) mmol/L Chloride (98-107) mmol/L BUN (7-17) mg/dL Glucose (74-99) mg/dL Magnesium (1.6-2.3) mg/dL Ferritin (10.0-291.0) ng/mL Total Bilirubin (0.2-1.3) mg/dL Unconjugated Bilirubin (0.0-1.1) mg/dL Delta Bilirubin (0.0-0.2) mg/dL Lactate Dehydrogenase (313-618) U/L Troponin I (0.000-0.034) ng/mL Total Protein (6.3-8.2) g/dL Albumin (3.5-5.0) g/dL Free [place] LC, Quant 2.02 H (0.33-1.94) mg/dL Crossmatch 11/24/19 11/24/19 11/24/19 Range/Units 04:25 04:25 07:00 WBC (3.8-10.6) k/uL RBC (3.80-5.40) m/uL Hgb (11.4-16.0) gm/dL Hct (34.0-46.0) % MCV (80.0-100.0) fL MCH (25.0-35.0) pg RDW (11.5-15.5) % Plt Count (150-450) k/uL Neutrophils # (Manual) (1.3-7.7) k/uL Lymphocytes # (Manual) (1.0-4.8) k/uL Nucleated RBCs (0-0) /100 WBC Haptoglobin (31.2-198.0) mg/dL Fibrinogen (200-500) mg/dL ABG pH 7.53 H (7.35-7.45) ABG pCO2 34 L (35-45) mmHg ABG pO2 82 L (83-108) mmHg ABG HCO3 29 H (21-25) mmol/L ABG Total CO2 30 H (19-24) mmol/L ABG O2 Saturation 97.6 H (94-97) % Potassium 2.9 L (3.5-5.1) mmol/L Chloride 96 L (98-107) mmol/L BUN 18 H (7-17) mg/dL Glucose 115 H (74-99) mg/dL Magnesium 1.3 L (1.6-2.3) mg/dL Ferritin 1536.9 H (10.0-291.0) ng/mL Total Bilirubin 2.3 H (0.2-1.3) mg/dL Unconjugated Bilirubin (0.0-1.1) mg/dL Delta Bilirubin (0.0-0.2) mg/dL Lactate Dehydrogenase (313-618) U/L Troponin I 0.053 H* (0.000-0.034) ng/mL Total Protein 6.2 L (6.3-8.2) g/dL Albumin 3.2 L (3.5-5.0) g/dL Free [place] LC, Quant (0.33-1.94) mg/dL Crossmatch Microbiology - Last 24 Hours (Table) 11/23/19 11:49 Blood Culture - Preliminary Blood No Growth after 24 hours - Imaging and Cardiology CT scan - chest: report reviewed Assessment and Plan (1) Pancytopenia Narrative/Plan: Transfuse to keep hemoglobin 7 or higher Transfuse to keep platelets greater than 10,000 unless patient is showing signs or symptoms of bleeding G-CSF has been started CBC daily Labs reviewed, no evidence at this time to suggest hemolysis or DIC Current Visit: Yes Status: Acute Priority: High Code(s): D61.818 - OTHER PANCYTOPENIA SNOMED Code(s): 269329625 (2) Ovarian cancer Narrative/Plan: on maintenance Rubraca, hold for now Current Visit: No Status: Chronic Priority: Low Code(s): C56.9 - MALIGNANT NEOPLASM OF UNSPECIFIED OVARY SNOMED Code(s): 738595748 (3) Breast cancer Narrative/Plan: History of, no current treatment. Current Visit: No Status: Chronic Priority: Low Code(s): C50.919 - MALIGNANT NEOPLASM OF UNSP SITE OF UNSPECIFIED FEMALE BREAST SNOMED Code(s): 211462754 Plan: In regards to patient's malignancy history, I did speak with her primary oncologist Dr. Vaughn, her most recent scans showed no evidence of disease, pt has no known disease in her lungs. She was changed from Lynparza to Rubraca due to insurance issues-maintenance therapy. Based on presentation, concern is for an atypical respiratory infection. If patient has persistent bilateral infiltrates recommendation is for bronchoscopy and specimen collection to evaluate for an atypical infection. ID consulted Steroids initiated for concern of drug induced pneumonitis Close follow up
[2019-11-24] MEDS ORDERED: Potassium Replacement Protocol 1 EACH MISC MISCELLANE PRN (16:45)
[2019-11-24 16:48] LABS: Poikilocytosis (M) Present; WBC 0.8 k/uL (3.8-10.6)
[2019-11-24 16:50] LABS: Platelet Count 39 k/uL (150-450)
[2019-11-24] MEDS: POTASSIUM CHLORIDE ER 20 MEQ TAB.ER PO SCH ×3 (17:02→20:47)
[2019-11-24] MEDS: methylPREDNISolone SOD SUCCI 125 MG/2 ML VIAL IV SCH (17:02)
--- NOTE | 2019-11-24 17:38 | P.PN ---
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 The patient reported that her symptoms started after she returned from a trip to [facility] at the end of September. She reported that in early October she had developed a cold, after which she slowly developed her symptoms. Patient reported that she has a history of hemorrhoids and regularly bleeds with bright red blood upon wiping and in the toilet bowl, though notes that the bleeding did stop roughly 2-3 weeks ago. She otherwise denied abdominal pain, fever, cough, chills, chest pain, nausea, or vomiting. The patient underwent an extensive evaluation in the emergency room. Upon presentation, her vital signs were P 124, BP 125/62, 85% on 3L NC, T 99.3. Laboratory evaluation revealed WBC count 1.3, hemoglobin 5.2, platelets 60, lactic acid 7.5, troponin 0.049, BUN 23, creatinine 1.15, BNP 6530, FOBT negative, and negative acetone. Chest x-ray revealed diffuse interstitial and alveolar pattern with multifocal areas of consolidation. Chest CTA showing aparna areas of consolidation with ground-glass changes involving the upper lobes, possibly pulmonary edema. She was given azithromycin, and 2 units of PRBCs were ordered and the patient is being admitted to the medical ICU for further management. The patient was initially placed on BiPAP. She was switched to Levaquin and was given multiple doses of IV lasix for fluid overload. ID and Hematology were consulted. Hematology recommended that the patient may have pneumonitis either due to a drug reaction or viral in nature vs an atypical infection. She was started on IV Steroids. She was also started on G-CSF and had received a total of 3 U of pRBCs. The patient also expressed suicidal ideation for which psychiatry was consulted and recommended one-to-one sitter and resuming her anti-depressants from home. Patient was seen and examined at the bedside on 11/24. She was on BiPAP and appeared uncomfortable. She was anxious and noted continued shortness of breath. Objective - Vital Signs Vital signs: Vital Signs Temp 99.3 F 11/24/19 16:00 Pulse 130 H 11/24/19 16:00 Resp 25 H 11/24/19 16:00 BP 111/79 11/24/19 16:00 Pulse Ox 94 L 11/24/19 16:00 Intake & Output 11/23/19 11/24/19 11/24/19 18:59 06:59 18:59 Intake Total 610 1460 1950 Output Total 800 5105 1310 Balance -190 -7004 640 Weight 99.79 kg 99.6 kg Intake: IV 300 900 750 Sodium Chloride 0.9% 1, 300 900 750 000 ml @ 75 mls/hr IV . [id number] [facility] Rx#:[id number] Intake, IV Titration 100 600 Amount Levofloxacin 500Mg-D5w 100 Pmx 500 mg In Dextrose/ Water 1 100ml.bag @ 100 mls/hr IVPB Q24H [facility] Rx#: [id number] Magnesium Sulfate-D5w Pmx 300 1 gm In Dextrose/Water 1 100ml.bag @ 100 mls/hr IVPB Q1H [facility] Rx#: [id number] Potassium Chloride 20 meq 300 In Water For Injection 1 100ml.bag @ 50 mls/hr IVPB Q2H [facility] Rx#: [id number] Oral 150 Blood Product 310 310 600 Rc As-1 Unit 300 [id number] Rc As-1 Unit 310 [id number] Rc As-1 Unit 310 [id number] Output: Urine 800 5105 1310 Uretheral (Tom) 200 Other: Voiding Method Indwelling Catheter Indwelling Catheter Indwelling Catheter - Exam General: Ill-appearing female on BiPAP, anxious, in no apparent distress, xavier ears stated age, morbidly obese HEENT: NC/AT, anicteric sclerae, moist conjunctiva, no lid-lag, PERRLA Cardiovascular: S1/S2 wnl, no murmurs, rubs, or gallops Lungs: Clear to auscultation except for some scattered ronchi and minimal bibasilar rales, normal respiratory effort, no accessory muscle use Abdominal: Soft, non-tender, non-distended, no guarding, rebound, or rigidity Skin: Warm, dry Extremities: Trace aparna LE edema, no contractures Psychiatric: Alert and oriented to person, place and time, appropriate affect Neuro: CN II-XII grossly intact, Strength 5/5 in all 4 extremities, Speech intact, Sensation to light touch grossly intact throughout - Labs CBC & Chem 7: 11/24/19 15:02 11/24/19 15:02 Labs: Abnormal Lab Results - Last 24 Hours (Table) 11/23/19 11/23/19 11/23/19 Range/Units 11:55 17:29 20:25 WBC 1.2 L* (3.8-10.6) k/uL RBC 1.54 L (3.80-5.40) m/uL Hgb 5.5 L* (11.4-16.0) gm/dL Hct 15.7 L* (34.0-46.0) % MCV 101.4 H (80.0-100.0) fL MCH 35.3 H (25.0-35.0) pg RDW 19.3 H (11.5-15.5) % Plt Count 52 L (150-450) k/uL Neutrophils # (Manual) 0.20 L* (1.3-7.7) k/uL Lymphocytes # (Manual) 0.71 L (1.0-4.8) k/uL Nucleated RBCs 1 H (0-0) /100 WBC Haptoglobin (31.2-198.0) mg/dL ABG pH 7.49 H (7.35-7.45) ABG pCO2 (35-45) mmHg ABG pO2 137 H (83-108) mmHg ABG HCO3 27 H (21-25) mmol/L ABG Total CO2 28 H (19-24) mmol/L ABG O2 Saturation 99.3 H (94-97) % Potassium (3.5-5.1) mmol/L Chloride (98-107) mmol/L BUN (7-17) mg/dL Glucose (74-99) mg/dL Magnesium (1.6-2.3) mg/dL Ferritin (10.0-291.0) ng/mL Total Bilirubin (0.2-1.3) mg/dL Unconjugated Bilirubin (0.0-1.1) mg/dL Delta Bilirubin (0.0-0.2) mg/dL Lactate Dehydrogenase (313-618) U/L Troponin I (0.000-0.034) ng/mL Total Protein (6.3-8.2) g/dL Albumin (3.5-5.0) g/dL Free [place] LC, Quant (0.33-1.94) mg/dL Crossmatch See Detail 11/23/19 11/23/19 11/23/19 Range/Units 20:25 20:25 20:25 WBC (3.8-10.6) k/uL RBC (3.80-5.40) m/uL Hgb (11.4-16.0) gm/dL Hct (34.0-46.0) % MCV (80.0-100.0) fL MCH (25.0-35.0) pg RDW (11.5-15.5) % Plt Count (150-450) k/uL Neutrophils # (Manual) (1.3-7.7) k/uL Lymphocytes # (Manual) (1.0-4.8) k/uL Nucleated RBCs (0-0) /100 WBC Haptoglobin 566.0 H (31.2-198.0) mg/dL ABG pH (7.35-7.45) ABG pCO2 (35-45) mmHg ABG pO2 (83-108) mmHg ABG HCO3 (21-25) mmol/L ABG Total CO2 (19-24) mmol/L ABG O2 Saturation (94-97) % Potassium (3.5-5.1) mmol/L Chloride (98-107) mmol/L BUN (7-17) mg/dL Glucose (74-99) mg/dL Magnesium (1.6-2.3) mg/dL Ferritin (10.0-291.0) ng/mL Total Bilirubin 2.0 H (0.2-1.3) mg/dL Unconjugated Bilirubin 1.3 H (0.0-1.1) mg/dL Delta Bilirubin 0.7 H (0.0-0.2) mg/dL Lactate Dehydrogenase 996 H (313-618) U/L Troponin I 0.043 H* (0.000-0.034) ng/mL Total Protein (6.3-8.2) g/dL Albumin (3.5-5.0) g/dL Free [place]dle LC, Quant (0.33-1.94) mg/dL Crossmatch 11/23/19 11/24/19 11/24/19 Range/Units 20:25 04:25 04:25 WBC 0.8 L* (3.8-10.6) k/uL RBC 2.06 L (3.80-5.40) m/uL Hgb 6.9 L* (11.4-16.0) gm/dL Hct 19.8 L* (34.0-46.0) % MCV (80.0-100.0) fL MCH (25.0-35.0) pg RDW 19.0 H (11.5-15.5) % Plt Count 47 L (150-450) k/uL Neutrophils # (Manual) (1.3-7.7) k/uL Lymphocytes # (Manual) (1.0-4.8) k/uL Nucleated RBCs (0-0) /100 WBC Haptoglobin (31.2-198.0) mg/dL ABG pH (7.35-7.45) ABG pCO2 (35-45) mmHg ABG pO2 (83-108) mmHg ABG HCO3 (21-25) mmol/L ABG Total CO2 (19-24) mmol/L ABG O2 Saturation (94-97) % Potassium 2.9 L (3.5-5.1) mmol/L Chloride 96 L (98-107) mmol/L BUN 18 H (7-17) mg/dL Glucose 115 H (74-99) mg/dL Magnesium 1.3 L (1.6-2.3) mg/dL Ferritin 1536.9 H (10.0-291.0) ng/mL Total Bilirubin 2.3 H (0.2-1.3) mg/dL Unconjugated Bilirubin (0.0-1.1) mg/dL Delta Bilirubin (0.0-0.2) mg/dL Lactate Dehydrogenase (313-618) U/L Troponin I (0.000-0.034) ng/mL Total Protein 6.2 L (6.3-8.2) g/dL Albumin 3.2 L (3.5-5.0) g/dL Free Bowdle LC, Quant 2.02 H (0.33-1.94) mg/dL Crossmatch 11/24/19 11/24/19 11/24/19 Range/Units 04:25 07:00 15:02 WBC (3.8-10.6) k/uL RBC (3.80-5.40) m/uL Hgb (11.4-16.0) gm/dL Hct (34.0-46.0) % MCV (80.0-100.0) fL MCH (25.0-35.0) pg RDW (11.5-15.5) % Plt Count (150-450) k/uL Neutrophils # (Manual) (1.3-7.7) k/uL Lymphocytes # (Manual) (1.0-4.8) k/uL Nucleated RBCs (0-0) /100 WBC Haptoglobin (31.2-198.0) mg/dL ABG pH 7.53 H (7.35-7.45) ABG pCO2 34 L (35-45) mmHg ABG pO2 82 L (83-108) mmHg ABG HCO3 29 H (21-25) mmol/L ABG Total CO2 30 H (19-24) mmol/L ABG O2 Saturation 97.6 H (94-97) % Potassium 3.3 L (3.5-5.1) mmol/L Chloride (98-107) mmol/L BUN (7-17) mg/dL Glucose (74-99) mg/dL Magnesium (1.6-2.3) mg/dL Ferritin (10.0-291.0) ng/mL Total Bilirubin (0.2-1.3) mg/dL Unconjugated Bilirubin (0.0-1.1) mg/dL Delta Bilirubin (0.0-0.2) mg/dL Lactate Dehydrogenase (313-618) U/L Troponin I 0.053 H* (0.000-0.034) ng/mL Total Protein (6.3-8.2) g/dL Albumin (3.5-5.0) g/dL Free Bowdle LC, Quant (0.33-1.94) mg/dL Crossmatch 11/24/19 Range/Units 15:02 WBC 0.8 L* (3.8-10.6) k/uL RBC 2.39 L (3.80-5.40) m/uL Hgb 8.1 L (11.4-16.0) gm/dL Hct 23.0 L (34.0-46.0) % MCV (80.0-100.0) fL MCH (25.0-35.0) pg RDW 18.0 H (11.5-15.5) % Plt Count 39 L (150-450) k/uL Neutrophils # (Manual) (1.3-7.7) k/uL Lymphocytes # (Manual) (1.0-4.8) k/uL Nucleated RBCs (0-0) /100 WBC Haptoglobin (31.2-198.0) mg/dL ABG pH (7.35-7.45) ABG pCO2 (35-45) mmHg ABG pO2 (83-108) mmHg ABG HCO3 (21-25) mmol/L ABG Total CO2 (19-24) mmol/L ABG O2 Saturation (94-97) % Potassium (3.5-5.1) mmol/L Chloride (98-107) mmol/L BUN (7-17) mg/dL Glucose (74-99) mg/dL Magnesium (1.6-2.3) mg/dL Ferritin (10.0-291.0) ng/mL Total Bilirubin (0.2-1.3) mg/dL Unconjugated Bilirubin (0.0-1.1) mg/dL Delta Bilirubin (0.0-0.2) mg/dL Lactate Dehydrogenase (313-618) U/L Troponin I (0.000-0.034) ng/mL Total Protein (6.3-8.2) g/dL Albumin (3.5-5.0) g/dL Free Bowdle LC, Quant (0.33-1.94) mg/dL Crossmatch Microbiology - Last 24 Hours (Table) 11/23/19 11:49 Blood Culture - Preliminary Blood No Growth after 24 hours Assessment and Plan Plan: Pancytopenia, possibly a drug side effect from Rubraca -S/p 3 U of pRBCs -Low suspicion for GI bleed since pancytopenia and neg FOBT -Hematology recommendations appreciated -Neutropenic precautions -MICU admission -Continue to monitor CBC Shortness of breath, differentials currently include pneumonitis versus less likely fluid overload versus atypical infection -Continue with positive pressure support with BiPAP and high flow nasal cannula -Currently on IV steroids -Infectious disease recommendations pending -Continue with levofloxacin -Echocardiogram pending Lactic acidosis, resolved Troponin elevation -Cardiology recommendations appreciated -Likely due to sinus tachycardia from severe anemia -Cardiac monitoring Hypomagnesemia and hypokalemia -Replace and monitor Depression with suicidal ideation -Psychiatry recommendations appreciated RAN -Monitor BMP DVT prophylaxis -IPCDs
[2019-11-24] MEDS: LEVOFLOXACIN 500MG-D5W PMX 500 MG in DEXTROSE/WATER 1 100ML.BAG IVPB SCH (21:00)
[2019-11-24] MEDS: QUEtiapine 50 MG TAB PO SCH (21:23)
--- NOTE | 2019-11-24 23:21 | P.CONS ---
History of Present Illness - Reason for Consult Consult date: 11/24/19 sepsis , pneumonia Requesting physician: Nabil Walter - Chief Complaint shortness of breath and fever x 2 days - History of Present Illness Patient is a 53 year female with past medical history significant for right-sided breast cancer as well as with concern for the patient has surgery and chemotherapy currently on maintenance chemotherapy in the form of Rucaparib. Patient now presented to the hospital with cecum is a decrease in shortness of breath that has been progressively getting worse over the last few days patient did have some URI symptoms patient also have a cough which has been mild to moderate intensity but not being up any sputum denies significant pleuritic chest pain no nausea no vomiting or any diarrhea and no urinary symptoms with these symptoms the patient presented to hospital, on arrival to the hospital the patient have low-grade fever of 99F subsequently spiked fever 100.4 to 100.5F, patient has been tachycardic witheart rate in 120s and she has been leukopenic with a white count of 0.8, the patient did have a chest x-ray wdid shows diffuse infiltrate subsequently CT angio after chest which did not show PE however did shows bilateral consolidation, the patient has been treated with levaquin because of her penicillin cephalexin ALLERGy infection disease was consulted further recommendation regarding Antibiotic therapy Review of Systems Positive point has been mentioned in the HPI rest of the systems are negative Past Medical History Past Medical History: Cancer Additional Past Medical History / Comment(s): ovarian History of Any Multi-Drug Resistant Organisms: None Reported Past Surgical History: Adenoidectomy, Appendectomy, Breast Surgery, C holecystectomy, Hernia Repair, Hysterectomy, Tonsillectomy Additional Past Surgical History / Comment(s): Double masectomy Past Anesthesia/Blood Transfusion Reactions: No Reported Reaction Past Psychological History: No Psychological Hx Reported Smoking Status: Never smoker Past Alcohol Use History: None Reported Past Drug Use History: None Reported - Past Family History Mother Family Medical History: Cancer Additional Family Medical History / Comment(s): Pancreatic CA Brother(s) Family Medical History: Cancer Additional Family Medical History / Comment(s): Pancreatic CA Medications and Allergies Home Medications Medication Instructions Recorded Confirmed Type Atenolol [Tenormin] 25 mg PO DAILY 11/23/19 11/23/19 History DULoxetine HCL [Cymbalta] 120 mg PO DAILY 11/23/19 11/23/19 History Furosemide [Lasix] 40 mg PO DAILY 11/23/19 11/23/19 History Gabapentin [Neurontin] 600 mg PO TID 11/23/19 11/23/19 History HYDROcodone/APAP 7.5-325MG [[place] 1 tab PO Q4H PRN 11/23/19 11/23/19 History 7.5-325] Ibuprofen [Motrin] 800 mg PO Q12H PRN 11/23/19 11/23/19 History Montelukast [Singulair] 10 mg PO DAILY 11/23/19 11/23/19 History QUEtiapine [SEROquel] 50 mg PO HS 11/23/19 11/23/19 History Rucaparib Camsylate [Rubraca] 200 mg PO BID 11/23/19 11/23/19 History Zt [place] 1.8% Patch 1 patch TRANSDERM DAILY 11/23/19 11/23/19 History busPIRone HCL [Buspar] 10 mg PO TID 11/23/19 11/23/19 History diphenhydrAMINE [Benadryl] 50 mg PO HS 11/23/19 11/23/19 History Allergies Allergy/AdvReac Type Severity Reaction Status Date / Time cephalexin [From Keflex] AdvReac Rash/Hives Verified 11/23/19 13:32 isopropyl alcohol AdvReac Itching Verified 11/23/19 13:32 Penicillins AdvReac Rash/Hives Verified 11/23/19 13:32 walnut AdvReac Swelling Verified 11/23/19 13:32 Physical Exam Vitals: Vital Signs Temp Pulse Resp BP Pulse Ox 11/24/19 09:48 98.6 F 117 H 26 H 118/66 97 11/24/19 09:38 97.7 F 122 H 24 126/69 93 L 11/24/19 09:00 122 H 24 126/69 93 L 11/24/19 08:00 99.1 F 122 H 33 H 124/71 96 11/24/19 07:35 124 H 11/24/19 07:22 122 H 11/24/19 07:00 121 H 36 H 134/81 94 L 11/24/19 06:00 126 H 29 H 122/74 94 L 11/24/19 05:00 123 H 32 H 109/66 95 02/13/20 04:00 98.2 F 131 H 38 H 133/77 95 11/24/19 03:00 129 H 28 H 115/70 97 11/24/19 02:00 126 H 34 H 117/70 93 L 11/24/19 01:27 100.5 F H 129 H 33 H 117/70 96 11/24/19 01:00 125 H 32 H 129/82 95 11/24/19 00:04 124 H 23 91 L 11/24/19 00:00 100.4 F H 125 H 32 H 132/74 91 L 11/23/19 23:09 100.1 F H 125 H 28 H 138/81 97 11/23/19 23:00 121 H 19 141/74 100 11/23/19 22:29 100.3 F H 122 H 27 H 141/74 100 11/23/19 22:19 100.4 F H 124 H 30 H 138/82 100 11/23/19 22:09 100.4 F H 123 H 26 H 140/73 98 11/23/19 22:00 123 H 35 H 134/81 100 11/23/19 21:00 123 H 25 H 134/83 100 11/23/19 20:02 125 H 11/23/19 20:00 99 F 123 H 28 H 121/76 100 11/23/19 19:43 121 H 11/23/19 19:00 122 H 16 137/86 100 11/23/19 18:00 114 H 23 137/86 97 11/23/19 17:11 98.2 F 112 H 21 140/92 96 11/23/19 17:00 111 H 23 140/92 97 11/23/19 16:50 111 H 20 96 11/23/19 16:40 112 H 29 H 98 11/23/19 16:30 114 H 17 96 11/23/19 16:20 112 H 23 99 11/23/19 16:10 112 H 25 H 98 11/23/19 16:00 111 H 22 131/78 99 11/23/19 15:50 111 H 18 100 11/23/19 15:40 112 H 20 99 11/23/19 15:30 112 H 12 121/80 85 L 11/23/19 15:20 113 H 22 98 11/23/19 15:10 110 H 17 97 02/12/20 15:00 114 H 24 98 11/23/19 14:50 114 H 15 99 11/23/19 14:45 99.9 F H 115 H 21 116/67 99 11/23/19 14:44 22 11/23/19 14:15 99 F 115 H 18 103/65 94 L 11/23/19 14:05 99.3 F 116 H 18 95/59 94 L 11/23/19 13:47 99.4 F 118 H 20 100/63 97 11/23/19 12:55 116 H 18 116/53 99 11/23/19 11:42 99.3 F 124 H 18 125/62 85 L Intake and Output 11/23/19 11/24/19 11/24/19 22:59 06:59 14:59 Intake Total 1160 910 275 Output Total 2975 2730 150 Balance -1815 -1820 125 Intake: IV 600 600 75 Sodium Chloride 0.9% 1, 600 600 75 000 ml @ 75 mls/hr IV . [id number] [facility] Rx#:[id number] Intake, IV Titration 100 200 Amount Levofloxacin 500Mg-D5w 100 Pmx 500 mg In Dextrose/ Water 1 100ml.bag @ 100 mls/hr IVPB Q24H [facility] Rx#: [id number] Magnesium Sulfate-D5w Pmx 100 1 gm In Dextrose/Water 1 100ml.bag @ 100 mls/hr IVPB Q1H [facility] Rx#: [id number] Potassium Chloride 20 meq 100 In Water For Injection 1 100ml.bag @ 50 mls/hr IVPB Q2H [facility] Rx#: [id number] Oral 150 Blood Product 310 310 0 Rc As-1 Unit 0 [id number] Rc As-1 Unit 310 [id number] Rc As-1 Unit 0 310 [id number] Output: Urine 2975 2730 150 Other: Voiding Method Indwelling Catheter Indwelling Catheter Weight 99.6 kg GENERAL DESCRIPTION: Middle-aged female lying in bed, no distress. No tachypnea or accessory muscle of respiration use. HEENT: Shows Pallor , no scleral icterus. Oral mucous membrane is dry. No pharyngeal erythema or thrush NECK: Trachea central, no thyromegaly. LUNGS: Unlabored breathing. decreased breath sound at the base. 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 HEART: S1, S2, regular rate and rhythm. No loud murmur ABDOMEN: Soft, no tenderness , guarding or rigidity, no organomegaly EXTREMITIES: No edema of feet. SKIN: No rash, no masses palpable. NEUROLOGICAL: The patient is awake, alert, oriented x3, mood and affect normal. Results CBC & Chem 7: 11/24/19 15:02 11/24/19 15:02 Labs: Abnormal Lab Results - Last 24 Hours (Table) 11/23/19 11/23/19 11/23/19 Range/Units 11:46 11:49 11:49 WBC 1.3 L* (3.8-10.6) k/uL RBC 1.40 L (3.80-5.40) m/uL Hgb 5.2 L* (11.4-16.0) gm/dL Hct 14.9 L* (34.0-46.0) % MCV 106.1 H (80.0-100.0) fL MCH 37.0 H (25.0-35.0) pg RDW 18.5 H (11.5-15.5) % Plt Count 60 L (150-450) k/uL Neutrophils # (Manual) 0.20 L* (1.3-7.7) k/uL Lymphocytes # (Manual) 0.74 L (1.0-4.8) k/uL Nucleated RBCs (0-0) /100 WBC Macrocytosis Marked A Haptoglobin (31.2-198.0) mg/dL PT (9.0-12.0) sec INR (<1.2) Fibrinogen (200-500) mg/dL ABG pH (7.35-7.45) ABG pCO2 (35-45) mmHg ABG pO2 (83-108) mmHg ABG HCO3 (21-25) mmol/L ABG Total CO2 (19-24) mmol/L ABG O2 Saturation (94-97) % Potassium (3.5-5.1) mmol/L Chloride (98-107) mmol/L Carbon Dioxide 20 L (22-30) mmol/L BUN 23 H (7-17) mg/dL Creatinine 1.15 H (0.52-1.04) mg/dL Glucose 146 H (74-99) mg/dL POC Glucose (mg/dL) 159 H (75-99) mg/dL Plasma Lactic Acid Yaya (0.7-2.0) mmol/L Magnesium (1.6-2.3) mg/dL Total Bilirubin 1.7 H (0.2-1.3) mg/dL Unconjugated Bilirubin (0.0-1.1) mg/dL Delta Bilirubin (0.0-0.2) mg/dL Lactate Dehydrogenase (313-618) U/L Troponin I (0.000-0.034) ng/mL Total Protein 6.2 L (6.3-8.2) g/dL Albumin 3.3 L (3.5-5.0) g/dL Ur Specific [place] (1.001-1.035) Urine Protein (Negative) [place] LC, Quant (0.33-1.94) mg/dL Crossmatch 11/23/19 11/23/19 11/23/19 Range/Units 11:49 11:49 11:49 WBC (3.8-10.6) k/uL RBC (3.80-5.40) m/uL Hgb (11.4-16.0) gm/dL Hct (34.0-46.0) % MCV (80.0-100.0) fL MCH (25.0-35.0) pg RDW (11.5-15.5) % Plt Count (150-450) k/uL Neutrophils # (Manual) (1.3-7.7) k/uL Lymphocytes # (Manual) (1.0-4.8) k/uL Nucleated RBCs (0-0) /100 WBC Macrocytosis Haptoglobin (31.2-198.0) mg/dL PT 12.3 H (9.0-12.0) sec INR 1.2 H (<1.2) Fibrinogen (200-500) mg/dL ABG pH (7.35-7.45) ABG pCO2 (35-45) mmHg ABG pO2 (83-108) mmHg ABG HCO3 (21-25) mmol/L ABG Total CO2 (19-24) mmol/L ABG O2 Saturation (94-97) % Potassium (3.5-5.1) mmol/L Chloride (98-107) mmol/L Carbon Dioxide (22-30) mmol/L BUN (7-17) mg/dL Creatinine (0.52-1.04) mg/dL Glucose (74-99) mg/dL POC Glucose (mg/dL) (75-99) mg/dL Plasma Lactic Acid Yaya 7.5 H* (0.7-2.0) mmol/L Magnesium (1.6-2.3) mg/dL Total Bilirubin (0.2-1.3) mg/dL Unconjugated Bilirubin (0.0-1.1) mg/dL Delta Bilirubin (0.0-0.2) mg/dL Lactate Dehydrogenase (313-618) U/L Troponin I 0.049 H* (0.000-0.034) ng/mL Total Protein (6.3-8.2) g/dL Albumin (3.5-5.0) g/dL Ur Specific [place] (1.001-1.035) Urine Protein (Negative) [place] LC, Quant (0.33-1.94) mg/dL Crossmatch 11/23/19 11/23/19 11/23/19 Range/Units 11:49 11:55 14:06 WBC (3.8-10.6) k/uL RBC (3.80-5.40) m/uL Hgb (11.4-16.0) gm/dL Hct (34.0-46.0) % MCV (80.0-100.0) fL MCH (25.0-35.0) pg RDW (11.5-15.5) % Plt Count (150-450) k/uL Neutrophils # (Manual) (1.3-7.7) k/uL Lymphocytes # (Manual) (1.0-4.8) k/uL Nucleated RBCs (0-0) /100 WBC Macrocytosis Haptoglobin (31.2-198.0) mg/dL PT (9.0-12.0) sec INR (<1.2) Fibrinogen 1037 H (200-500) mg/dL ABG pH (7.35-7.45) ABG pCO2 (35-45) mmHg ABG pO2 (83-108) mmHg ABG HCO3 (21-25) mmol/L ABG Total CO2 (19-24) mmol/L ABG O2 Saturation (94-97) % Potassium (3.5-5.1) mmol/L Chloride (98-107) mmol/L Carbon Dioxide (22-30) mmol/L BUN (7-17) mg/dL Creatinine (0.52-1.04) mg/dL Glucose (74-99) mg/dL POC Glucose (mg/dL) (75-99) mg/dL Plasma Lactic Acid Yaya (0.7-2.0) mmol/L Magnesium (1.6-2.3) mg/dL Total Bilirubin (0.2-1.3) mg/dL Unconjugated Bilirubin (0.0-1.1) mg/dL Delta Bilirubin (0.0-0.2) mg/dL Lactate Dehydrogenase (313-618) U/L Troponin I (0.000-0.034) ng/mL Total Protein (6.3-8.2) g/dL Albumin (3.5-5.0) g/dL Ur Specific [place] >1.050 H (1.001-1.035) Urine Protein Trace H (Negative) [place] LC, Quant (0.33-1.94) mg/dL Crossmatch See Detail 11/23/19 11/23/19 11/23/19 Range/Units 14:43 17:29 20:25 WBC 1.2 L* (3.8-10.6) k/uL RBC 1.54 L (3.80-5.40) m/uL Hgb 5.5 L* (11.4-16.0) gm/dL Hct 15.7 L* (34.0-46.0) % MCV 101.4 H (80.0-100.0) fL MCH 35.3 H (25.0-35.0) pg RDW 19.3 H (11.5-15.5) % Plt Count 52 L (150-450) k/uL Neutrophils # (Manual) 0.20 L* (1.3-7.7) k/uL Lymphocytes # (Manual) 0.71 L (1.0-4.8) k/uL Nucleated RBCs 1 H (0-0) /100 WBC Macrocytosis Haptoglobin (31.2-198.0) mg/dL PT (9.0-12.0) sec INR (<1.2) Fibrinogen (200-500) mg/dL ABG pH 7.49 H (7.35-7.45) ABG pCO2 (35-45) mmHg ABG pO2 137 H (83-108) mmHg ABG HCO3 27 H (21-25) mmol/L ABG Total CO2 28 H (19-24) mmol/L ABG O2 Saturation 99.3 H (94-97) % Potassium (3.5-5.1) mmol/L Chloride (98-107) mmol/L Carbon Dioxide (22-30) mmol/L BUN (7-17) mg/dL Creatinine (0.52-1.04) mg/dL Glucose (74-99) mg/dL POC Glucose (mg/dL) 158 H (75-99) mg/dL Plasma Lactic Acid Yaya (0.7-2.0) mmol/L Magnesium (1.6-2.3) mg/dL Total Bilirubin (0.2-1.3) mg/dL Unconjugated Bilirubin (0.0-1.1) mg/dL Delta Bilirubin (0.0-0.2) mg/dL Lactate Dehydrogenase (313-618) U/L Troponin I (0.000-0.034) ng/mL Total Protein (6.3-8.2) g/dL Albumin (3.5-5.0) g/dL Ur Specific [place] (1.001-1.035) Urine Protein (Negative) [place] LC, Quant (0.33-1.94) mg/dL Crossmatch 11/23/19 11/23/19 11/23/19 Range/Units 20:25 20:25 20:25 WBC (3.8-10.6) k/uL RBC (3.80-5.40) m/uL Hgb (11.4-16.0) gm/dL Hct (34.0-46.0) % MCV (80.0-100.0) fL MCH (25.0-35.0) pg RDW (11.5-15.5) % Plt Count (150-450) k/uL Neutrophils # (Manual) (1.3-7.7) k/uL Lymphocytes # (Manual) (1.0-4.8) k/uL Nucleated RBCs (0-0) /100 WBC Macrocytosis Haptoglobin 566.0 H (31.2-198.0) mg/dL PT (9.0-12.0) sec INR (<1.2) Fibrinogen (200-500) mg/dL ABG pH (7.35-7.45) ABG pCO2 (35-45) mmHg ABG pO2 (83-108) mmHg ABG HCO3 (21-25) mmol/L ABG Total CO2 (19-24) mmol/L ABG O2 Saturation (94-97) % Potassium (3.5-5.1) mmol/L Chloride (98-107) mmol/L Carbon Dioxide (22-30) mmol/L BUN (7-17) mg/dL Creatinine (0.52-1.04) mg/dL Glucose (74-99) mg/dL POC Glucose (mg/dL) (75-99) mg/dL Plasma Lactic Acid Yaya (0.7-2.0) mmol/L Magnesium (1.6-2.3) mg/dL Total Bilirubin 2.0 H (0.2-1.3) mg/dL Unconjugated Bilirubin 1.3 H (0.0-1.1) mg/dL Delta Bilirubin 0.7 H (0.0-0.2) mg/dL Lactate Dehydrogenase 996 H (313-618) U/L Troponin I 0.043 H* (0.000-0.034) ng/mL Total Protein (6.3-8.2) g/dL Albumin (3.5-5.0) g/dL Ur Specific [place] (1.001-1.035) Urine Protein (Negative) [place] LC, Quant (0.33-1.94) mg/dL Crossmatch 11/23/19 11/24/19 11/24/19 Range/Units 20:25 04:25 04:25 WBC 0.8 L* (3.8-10.6) k/uL RBC 2.06 L (3.80-5.40) m/uL Hgb 6.9 L* (11.4-16.0) gm/dL Hct 19.8 L* (34.0-46.0) % MCV (80.0-100.0) fL MCH (25.0-35.0) pg RDW 19.0 H (11.5-15.5) % Plt Count 47 L (150-450) k/uL Neutrophils # (Manual) (1.3-7.7) k/uL Lymphocytes # (Manual) (1.0-4.8) k/uL Nucleated RBCs (0-0) /100 WBC Macrocytosis Haptoglobin (31.2-198.0) mg/dL PT (9.0-12.0) sec INR (<1.2) Fibrinogen (200-500) mg/dL ABG pH (7.35-7.45) ABG pCO2 (35-45) mmHg ABG pO2 (83-108) mmHg ABG HCO3 (21-25) mmol/L ABG Total CO2 (19-24) mmol/L ABG O2 Saturation (94-97) % Potassium 2.9 L (3.5-5.1) mmol/L Chloride 96 L (98-107) mmol/L Carbon Dioxide (22-30) mmol/L BUN 18 H (7-17) mg/dL Creatinine (0.52-1.04) mg/dL Glucose 115 H (74-99) mg/dL POC Glucose (mg/dL) (75-99) mg/dL Plasma Lactic Acid Yaya (0.7-2.0) mmol/L Magnesium 1.3 L (1.6-2.3) mg/dL Total Bilirubin 2.3 H (0.2-1.3) mg/dL Unconjugated Bilirubin (0.0-1.1) mg/dL Delta Bilirubin (0.0-0.2) mg/dL Lactate Dehydrogenase (313-618) U/L Troponin I (0.000-0.034) ng/mL Total Protein 6.2 L (6.3-8.2) g/dL Albumin 3.2 L (3.5-5.0) g/dL Ur Specific [place] (1.001-1.035) Urine Protein (Negative) [place] LC, Quant 2.02 H (0.33-1.94) mg/dL Crossmatch 11/24/19 11/24/19 Range/Units 04:25 07:00 WBC (3.8-10.6) k/uL RBC (3.80-5.40) m/uL Hgb (11.4-16.0) gm/dL Hct (34.0-46.0) % MCV (80.0-100.0) fL MCH (25.0-35.0) pg RDW (11.5-15.5) % Plt Count (150-450) k/uL Neutrophils # (Manual) (1.3-7.7) k/uL Lymphocytes # (Manual) (1.0-4.8) k/uL Nucleated RBCs (0-0) /100 WBC Macrocytosis Haptoglobin (31.2-198.0) mg/dL PT (9.0-12.0) sec INR (<1.2) Fibrinogen (200-500) mg/dL ABG pH 7.53 H (7.35-7.45) ABG pCO2 34 L (35-45) mmHg ABG pO2 82 L (83-108) mmHg ABG HCO3 29 H (21-25) mmol/L ABG Total CO2 30 H (19-24) mmol/L ABG O2 Saturation 97.6 H (94-97) % Potassium (3.5-5.1) mmol/L Chloride (98-107) mmol/L Carbon Dioxide (22-30) mmol/L BUN (7-17) mg/dL Creatinine (0.52-1.04) mg/dL Glucose (74-99) mg/dL POC Glucose (mg/dL) (75-99) mg/dL Plasma Lactic Acid Yaya (0.7-2.0) mmol/L Magnesium (1.6-2.3) mg/dL Total Bilirubin (0.2-1.3) mg/dL Unconjugated Bilirubin (0.0-1.1) mg/dL Delta Bilirubin (0.0-0.2) mg/dL Lactate Dehydrogenase (313-618) U/L Troponin I 0.053 H* (0.000-0.034) ng/mL Total Protein (6.3-8.2) g/dL Albumin (3.5-5.0) g/dL Ur Specific [place] (1.001-1.035) Urine Protein (Negative) [place] LC, Quant (0.33-1.94) mg/dL Crossmatch Assessment and Plan Assessment: 1-Patient admitted to the hospital with sepsis in this patient who did have a fever tachycardia and leukopenia meeting criteria for sepsis source is likely pneumonia in this patient did have predominant respiratory symptoms CT angiogram shows bilateral consolidation in view of her underlying immunodeficiency will need to cover for gram-negative pathogen to be the likely organism responsible for the this sepsis and pneumonia 2-patient with multiple antibiotic ALLERGIES that would limit the number of antibiotic safety use (1) Sepsis Current Visit: Yes Status: Acute Code(s): A41.9 - SEPSIS, UNSPECIFIED ORGANISM SNOMED Code(s): 95093657 (2) Pneumonia Current Visit: Yes Status: Acute Code(s): J18.9 - PNEUMONIA, UNSPECIFIED ORGANISM SNOMED Code(s): 546601825 (3) Allergy to multiple antibiotics Current Visit: Yes Status: Acute Code(s): Z88.1 - ALLERGY STATUS TO OTHER ANTIBIOTIC AGENTS STATUS SNOMED Code(s): 110425857997603 Plan: 1- we will obtain sputum for Gram stain and culture and check a urine for Legionella antigen 2-we will check a pro-calcitonin level and his CRP 3-we will add Azactam 2 g every 8 hours and continue with the Levaquin We will follow on clinical condition and cultures to further adjust medication if needed Thank you for this consultation will follow this patient with you Time with Patient: Greater than 30
[2019-11-25 05:21] LABS: Carbon Dioxide 26 mmol/L (22-30); Chloride 101 mmol/L (98-107); Glucose 144 mg/dL (74-99); Potassium 3.7 mmol/L (3.5-5.1); Sodium 140 mmol/L (137-145)
[2019-11-25 05:22] LABS: ALT 9 U/L (4-34); AST 19 U/L (14-36); African American GFR (CKD) >90 (>60 ml/min/1.73 sqM); Alkaline Phosphatase 99 U/L (38-126); Anion Gap 13 mmol/L; Blood Urea Nitrogen 16 mg/dL (7-17); Calcium 8.4 mg/dL (8.4-10.2); Magnesium 2.3 mg/dL (1.6-2.3); Non-African American GFR(CKD) >90 (>60 ml/min/1.73 sqM); Total Bilirubin 1.7 mg/dL (0.2-1.3); Total Protein 6.1 g/dL (6.3-8.2)
[2019-11-25 05:36] LABS: Anisocytosis Slight; HCT 22.7 % (34.0-46.0); HGB 7.9 gm/dL (11.4-16.0); MCH 33.6 pg (25.0-35.0); MCHC 34.8 g/dL (31.0-37.0); MCV 96.7 fL (80.0-100.0); Macrocytosis Slight; Mean Platelet Volume 8.6; RBC 2.35 m/uL (3.80-5.40); RDW 17.8 % (11.5-15.5)
[2019-11-25 05:39] LABS: Platelet Count 35 k/uL (150-450); WBC 0.6 k/uL (3.8-10.6)
[2019-11-25] MEDS ORDERED: POTASSIUM CHLORIDE ER 20 MEQ TAB.ER PO SCH (06:00)
[2019-11-25] MEDS: IPRATROPIUM-ALBUTEROL 3 ML NEB INHALATION SCH ×4 (07:54→19:10)
[2019-11-25 07:56] LABS: Rouleaux Present
[2019-11-25] MEDS ORDERED: VANCOMYCIN IV PER PHARMACY 1 EACH MISC MISCELLANE PRN (08:26)
--- NOTE | 2019-11-25 08:56 | P.PN ---
Subjective Progress Note Date: 11/25/19 This is a 53-year-old female was admitted to the hospital with pancytopenia, symptoms of shortness of breath, palpitations and also abdominal discomfort. Cardiology is consulted because of abnormal troponin values and possible CHF because of findings on the chest x-ray. Patient has received blood transfusion and her hemoglobin has improved. Patient is complaining of nausea and abdominal discomfort mostly. Doesn't appear to be in acute distress. The chest x-ray findings were felt to be secondary to noncardiogenic pulmonary edema. Echo report is still pending. Patient is in sinus rhythm and sinus tachycardia. Objective - Vital Signs Vital signs: Vital Signs Temp 97.9 F 11/25/19 08:00 Pulse 112 H 11/25/19 08:08 Resp 28 H 11/25/19 08:00 BP 142/84 11/25/19 08:00 Pulse Ox 96 11/25/19 08:00 Intake & Output 11/24/19 11/25/19 11/25/19 18:59 06:59 18:59 Intake Total 2110 825 40 Output Total 1485 795 100 Balance 625 30 -60 Weight 99 kg Intake: IV 900 625 40 Sodium Chloride 0.9% 1, 900 625 40 000 ml @ 75 mls/hr IV . [id number] [facility] Rx#:[id number] Intake, IV Titration 600 200 Amount Levofloxacin 500Mg-D5w 100 Pmx 500 mg In Dextrose/ Water 1 100ml.bag @ 100 mls/hr IVPB Q24H [facility] Rx#: [id number] Magnesium Sulfate-D5w Pmx 300 1 gm In Dextrose/Water 1 100ml.bag @ 100 mls/hr IVPB Q1H [facility] Rx#: [id number] Magnesium Sulfate-D5w Pmx 100 1 gm In Dextrose/Water 1 100ml.bag @ 100 mls/hr IVPB Q1H [facility] Rx#: [id number] Potassium Chloride 20 meq 300 In Water For Injection 1 100ml.bag @ 50 mls/hr IVPB Q2H [facility] Rx#: [id number] Blood Product 610 Rc As-1 Unit 300 [id number] Output: Urine 1485 795 100 Other: Voiding Method Indwelling Catheter Indwelling Catheter Indwelling Catheter - Exam GENERAL EXAM: Patient is alert and oriented and appears to be generally sick HEENT: Normocephalic. Normal reaction of pupils, equal size, normal range of extraocular motion. No erythema or exudates in the throat. NECK: No masses, no nuchal rigidity. CHEST: No chest wall deformity. LUNGS: Equal air entry with no crackles or wheeze. HEART: S1 and S2 normal with no audible mumurs or gallops. Regular rhythm, femorals equal on both sides.. ABDOMEN: Soft SKIN: No rashes CENTRAL NERVOUS SYSTEM: No focal deficits. EXTREMITIES: No cyanosis, clubbing or edema. - Labs CBC & Chem 7: 11/25/19 04:35 11/25/19 04:35 Labs: Abnormal Lab Results - Last 24 Hours (Table) 11/23/19 11/24/19 11/24/19 Range/Units 11:55 04:25 14:30 WBC (3.8-10.6) k/uL RBC (3.80-5.40) m/uL Hgb (11.4-16.0) gm/dL Hct (34.0-46.0) % RDW (11.5-15.5) % Plt Count (150-450) k/uL Potassium (3.5-5.1) mmol/L Glucose (74-99) mg/dL Ferritin 1536.9 H (10.0-291.0) ng/mL Total Bilirubin (0.2-1.3) mg/dL C-Reactive Protein (<10.0) mg/L Total Protein (6.3-8.2) g/dL Albumin (3.5-5.0) g/dL Procalcitonin 3.04 H (0.02-0.09) ng/mL Crossmatch See Detail 11/24/19 11/24/19 11/25/19 Range/Units 15:02 15:02 04:35 WBC 0.8 L* (3.8-10.6) k/uL RBC 2.39 L (3.80-5.40) m/uL Hgb 8.1 L (11.4-16.0) gm/dL Hct 23.0 L (34.0-46.0) % RDW 18.0 H (11.5-15.5) % Plt Count 39 L (150-450) k/uL Potassium 3.3 L (3.5-5.1) mmol/L Glucose 144 H (74-99) mg/dL Ferritin (10.0-291.0) ng/mL Total Bilirubin 1.7 H (0.2-1.3) mg/dL C-Reactive Protein 654.5 H (<10.0) mg/L Total Protein 6.1 L (6.3-8.2) g/dL Albumin 3.0 L (3.5-5.0) g/dL Procalcitonin (0.02-0.09) ng/mL Crossmatch 11/25/19 Range/Units 04:35 WBC 0.6 L* (3.8-10.6) k/uL RBC 2.35 L (3.80-5.40) m/uL Hgb 7.9 L (11.4-16.0) gm/dL Hct 22.7 L (34.0-46.0) % RDW 17.8 H (11.5-15.5) % Plt Count 35 L (150-450) k/uL Potassium (3.5-5.1) mmol/L Glucose (74-99) mg/dL Ferritin (10.0-291.0) ng/mL Total Bilirubin (0.2-1.3) mg/dL C-Reactive Protein (<10.0) mg/L Total Protein (6.3-8.2) g/dL Albumin (3.5-5.0) g/dL Procalcitonin (0.02-0.09) ng/mL Crossmatch Microbiology - Last 24 Hours (Table) 11/23/19 11:49 Blood Culture - Preliminary Blood No Growth after 24 hours Assessment and Plan (1) Troponin level elevated Current Visit: Yes Status: Acute Code(s): R79.89 - OTHER SPECIFIED ABNORMAL FINDINGS OF BLOOD CHEMISTRY SNOMED Code(s): 053846646 (2) Acute respiratory failure with hypoxia Current Visit: Yes Status: Acute Code(s): J96.01 - ACUTE RESPIRATORY FAILURE WITH HYPOXIA SNOMED Code(s): 67979343 (3) Pancytopenia Current Visit: Yes Status: Acute Priority: High Code(s): D61.818 - OTHER PANCYTOPENIA SNOMED Code(s): 835550883 (4) Breast cancer Current Visit: No Status: Chronic Priority: Low Code(s): C50.919 - MALIGNANT NEOPLASM OF UNSP SITE OF UNSPECIFIED FEMALE BREAST SNOMED Code(s): 486722510 (5) Ovarian cancer Current Visit: No Status: Chronic Priority: Low Code(s): C56.9 - MALIGNANT NEOPLASM OF UNSPECIFIED OVARY SNOMED Code(s): 500390372 Plan: Continue current management and blood transfusion as needed. I will look for the report on the echocardiogram. No further cardiac workup at this stage. Further recommends will depend upon the findings on the echo
[2019-11-25] MEDS ORDERED: VANCOMYCIN 2,000 MG in SODIUM CHLORIDE 0.9% 500 ML 500 ML IVPB ONE (09:00)
[2019-11-25] MEDS: FILGRASTIM-SNDZ 480 MCG/0.8 ML SYRINGE SQ SCH (09:19)
[2019-11-25] MEDS: HYDROcodone/APAP 7.5-325MG 1 EACH TAB PO PRN (09:19)
[2019-11-25] MEDS: DULoxetine HCL 30 MG CAPSULE.DR PO SCH (09:19)
[2019-11-25] MEDS: ATENOLOL 25 MG TAB PO SCH (09:20)
[2019-11-25] MEDS: busPIRone HCl 10 MG TAB PO SCH ×2 (09:20→21:39)
[2019-11-25] MEDS: FLUCONAZOLE 100 MG TAB PO SCH ×2 (09:20→21:40)
[2019-11-25] MEDS: PANTOPRAZOLE 40 MG/10 ML VIAL IVP SCH ×2 (09:20→21:40)
[2019-11-25] MEDS: methylPREDNISolone SOD SUCCI 125 MG/2 ML VIAL IV SCH ×4 (09:21→23:15)
[2019-11-25] MEDS: AZTREONAM 2 GM in SODIUM CHLORIDE 0.9% 100 ML IVPB SCH ×5 (10:02→23:15)
--- NOTE | 2019-11-25 10:05 | P.PN ---
Subjective Progress Note Date: 11/25/19 On 11/24/2019 patient seen in follow-up in the intensive care unit. She remains on BiPAP support, with pressures of 12 and 5, and FiO2 of 40%, still dyspneic, but doing slightly better, not tolerating BiPAP support very well. This was pointed gases were reviewed, showing pO2 of 82, pCO2 34, and pH of 7.53. Patient is afebrile, she remains on empiric antibiotics in the form of Azactam, Levaquin, infectious disease is following. Patient did receive 2 units of blood yesterday for a hemoglobin of 6.9, she will receive another unit of packed red blood cells this morning, she was given a dose of IV Lasix after transfusion of the 2 units of blood at 5:00 in the morning. She is diuresing, and she is in the 3825 mL fluid balance over the last 24 hours. Today's chest x-ray has been reviewed, showing diffuse airspace disease bilaterally be related to pneumonia or pulmonary edema. Echocardiogram is pending, cardiology has been consulted. Patient denies any chest pain right now. Blood cultures have been sent and are pending at this time, Legionella urine antigen and pro-calcitonin are pending. Hematology service is consulted, patient's home medication Rucaparib for history of breast cancer is currently on hold. Patient is tachycardic on the monitor in sinus mechanism with a rate of 120 BPM, blood pressures 111/64, lung sounds are diminished, with fine crackles at the bases. She's been afebrile. His labs have been reviewed, showing white blood cell count of 0.8, hemoglobin is 6.9, pl atelet count is 47, sodium is 137, potassium is 2.9, chloride is 96, CO2 is 29, BUN is 18 and creatinine of 0.8. Troponins are 0.049, 0.043, and 0.053. On 11/25/2019 patient seen in follow-up in intensive care unit, she is awake and alert, oriented 3, tearful, and seems to be depressed, she is a high flow oxygen currently at 12 L the pulse ox between 88-94%. Slightly less tachycardic on today's exam, in sinus mechanism with a rate of 108 to 1:15 BPM, no BiPAP support overnight, patient has received a total of 3 units of packed red blood cells since admission, today's labs have been reviewed showing white blood cell count of 0.6, hemoglobin of 7.9, platelet count of 35, electrolytes and renal profile were unremarkable, no calcitonin level is 3.04, rheumatoid factor was 15 and and screen was negative. Patient is on a combination of Azactam and Levaquin, will add vancomycin. T-max in last 24 hours was 100F. Fever pattern has improved. Her cough is dry, no phlegm production. No complaints of chest pain, no hemoptysis. Lung sounds are positive for coarse basilar scattered crackles. Has not been able to produce a sputum specimen for us. Cultures so far are negative. Chest x-ray from today still shows diffuse infiltrates. Echocardiogram as been completed but has not been transcribed yet. Objective - Vital Signs Vital signs: Vital Signs Temp 97.9 F 11/25/19 08:00 Pulse 112 H 11/25/19 08:08 Resp 28 H 11/25/19 08:00 BP 142/84 11/25/19 08:00 Pulse Ox 93 L 11/25/19 09:02 Intake & Output 11/24/19 11/25/19 11/25/19 18:59 06:59 18:59 Intake Total 2110 825 40 Output Total 1485 795 100 Balance 625 30 -60 Weight 99 kg Intake: IV 900 625 40 Sodium Chloride 0.9% 1, 900 625 40 000 ml @ 75 mls/hr IV . [id number] [facility] Rx#:[id number] Intake, IV Titration 600 200 Amount Levofloxacin 500Mg-D5w 100 Pmx 500 mg In Dextrose/ Water 1 100ml.bag @ 100 mls/hr IVPB Q24H [facility] Rx#: [id number] Magnesium Sulfate-D5w Pmx 300 1 gm In Dextrose/Water 1 100ml.bag @ 100 mls/hr IVPB Q1H [facility] Rx#: [id number] Magnesium Sulfate-D5w Pmx 100 1 gm In Dextrose/Water 1 100ml.bag @ 100 mls/hr IVPB Q1H [facility] Rx#: [id number] Potassium Chloride 20 meq 300 In Water For Injection 1 100ml.bag @ 50 mls/hr IVPB Q2H [facility] Rx#: [id number] Blood Product 610 Rc As-1 Unit 300 [id number] Output: Urine 1485 795 100 Other: Voiding Method Indwelling Catheter Indwelling Catheter Indwelling Catheter - Exam GENERAL EXAM: Alert, 53-year-old white female, on BiPAP support, dyspneic at rest, tachycardic in sinus mechanism with a rate of 115 BPM, high flow oxygen at 12 L with a pulse ox of 88-94% EYES: Normal reaction of pupils, equal size. Conjunctiva pink, sclera white. NOSE: Clear with pink turbinates. THROAT: No erythema or exudates. NECK: No masses, no JVD, no thyroid enlargement, no adenopathy. CHEST: No chest wall deformity. Symmetrical expansion. LUNGS: Equal air entry with no crackles, wheeze, rhonchi or dullness. CVS: Regular rate and rhythm, normal S1 and S2, no gallops, no murmurs, no rubs ABDOMEN: Soft, nontender. No hepatosplenomegaly, normal bowel sounds, no guarding or rigidity. EXTREMITIES: No clubbing, no edema, no cyanosis, 2+ pulses and upper and lower extremities. MUSCULOSKELETAL: Muscle strength and tone normal. SPINE: No scoliosis or deformity SKIN: No rashes CENTRAL NERVOUS SYSTEM: Alert and oriented -3. No focal deficits, tone is normal in all 4 extremities. PSYCHIATRIC: Alert and oriented -3. Appropriate affect. Intact judgment and insight. - Labs CBC & Chem 7: 11/25/19 04:35 11/25/19 04:35 Labs: Abnormal Lab Results - Last 24 Hours (Table) 11/23/19 11/24/19 11/24/19 Range/Units 11:55 04:25 14:30 WBC (3.8-10.6) k/uL RBC (3.80-5.40) m/uL Hgb (11.4-16.0) gm/dL Hct (34.0-46.0) % RDW (11.5-15.5) % Plt Count (150-450) k/uL Potassium (3.5-5.1) mmol/L Glucose (74-99) mg/dL Ferritin 1536.9 H (10.0-291.0) ng/mL Total Bilirubin (0.2-1.3) mg/dL C-Reactive Protein (<10.0) mg/L Total Protein (6.3-8.2) g/dL Albumin (3.5-5.0) g/dL Procalcitonin 3.04 H (0.02-0.09) ng/mL Crossmatch See Detail 11/24/19 11/24/19 11/25/19 Range/Units 15:02 15:02 04:35 WBC 0.8 L* (3.8-10.6) k/uL RBC 2.39 L (3.80-5.40) m/uL Hgb 8.1 L (11.4-16.0) gm/dL Hct 23.0 L (34.0-46.0) % RDW 18.0 H (11.5-15.5) % Plt Count 39 L (150-450) k/uL Potassium 3.3 L (3.5-5.1) mmol/L Glucose 144 H (74-99) mg/dL Ferritin (10.0-291.0) ng/mL Total Bilirubin 1.7 H (0.2-1.3) mg/dL C-Reactive Protein 654.5 H (<10.0) mg/L Total Protein 6.1 L (6.3-8.2) g/dL Albumin 3.0 L (3.5-5.0) g/dL Procalcitonin (0.02-0.09) ng/mL Crossmatch 11/25/19 Range/Units 04:35 WBC 0.6 L* (3.8-10.6) k/uL RBC 2.35 L (3.80-5.40) m/uL Hgb 7.9 L (11.4-16.0) gm/dL Hct 22.7 L (34.0-46.0) % RDW 17.8 H (11.5-15.5) % Plt Count 35 L (150-450) k/uL Potassium (3.5-5.1) mmol/L Glucose (74-99) mg/dL Ferritin (10.0-291.0) ng/mL Total Bilirubin (0.2-1.3) mg/dL C-Reactive Protein (<10.0) mg/L Total Protein (6.3-8.2) g/dL Albumin (3.5-5.0) g/dL Procalcitonin (0.02-0.09) ng/mL Crossmatch Microbiology - Last 24 Hours (Table) 11/23/19 11:49 Blood Culture - Preliminary Blood No Growth after 24 hours Assessment and Plan Plan: Assessment: #1. Acute hypoxemic respiratory failure likely related to interstitial pneumonia or pulmonary edema or combination of both, echocardiogram is pending, and patient empirically covered with antibiotics #2. Sinus tachycardia secondary to respiratory distress #3. Rule out congestive heart failure, echocardiogram is pending #4. History of ovarian cancer, status post bilateral salpingo-oophorectomy and hysterectomy, with prior multiple chemotherapeutic agents and radiation, currently on Rubraca #5. Pancytopenia #6. History of left breast cancer, status post bilateral radical mastectomy #7. Obesity #8. Elevated troponins rule out non-ST elevated myocardial infarction Plan: Continue current antibiotics including Azactam and Levaquin, we will add van comycin. Send the sputum specimen afebrile, however patient's cough is nonproductive. We will continue with supportive treatment, may try interval if that's more comfortable for the patient, his chest x-ray has been reviewed showing stable findings of diffuse bilateral infiltrates. Echocardiogram is pending. Fever pattern is improving. Consider bronchoscopy with BAL once the patient's oxygenation improves. We'll continue to follow I performed a history & physical examination of the patient and discussed their management with my nurse practitioner, Audrey Guzman. I reviewed the nurse pr actitioner's note and agree with the documented findings and plan of care. Lung sounds are positive for diminished breath sounds. The findings and the impression was discussed with the patient. I attest to the documentation by the nurse practitioner. Time with Patient: Less than 30
--- NOTE | 2019-11-25 10:12 | XR ---
EXAMINATION TYPE: XR chest 1V portable DATE OF EXAM: 11/25/2019 COMPARISON: Prior chest x-ray 11/24/2019 HISTORY: Shortness of breath TECHNIQUE: Single frontal view of the chest is obtained. FINDINGS: Bilateral airspace disease persists, lung volumes are low. Heart size is enlarged. No evid ent pneumothorax. There are overlying cardiac leads. No sizable effusion. IMPRESSION: Correlate for pneumonia, congestive heart failure.
[2019-11-25 11:10] LABS: C Reactive Protein 579.8 mg/L (<10.0)
--- NOTE | 2019-11-25 12:13 | P.PN ---
Subjective Progress Note Date: 11/25/19 Principal diagnosis: difficulty in breathing In follow-up today patient is significantly more comfortable and yesterday, she has a high flow nasal cannula on, she is opening her eyes to voice but falling back to sleep. Her is at bedside Objective - Vital Signs Vital signs: Vital Signs Temp 97.9 F 11/25/19 08:00 Pulse 99 11/25/19 11:49 Resp 23 11/25/19 11:00 BP 133/82 11/25/19 11:00 Pulse Ox 94 L 11/25/19 11:00 Intake & Output 11/24/19 11/25/19 11/25/19 18:59 06:59 18:59 Intake Total 2110 825 680 Output Total 1485 795 255 Balance 625 30 425 Weight 99 kg Intake: IV 900 625 80 Sodium Chloride 0.9% 1, 900 625 80 000 ml @ 75 mls/hr IV . [id number] [facility] Rx#:[id number] Intake, IV Titration 600 200 600 Amount Aztreonam 2 gm In Sodium 100 Chloride 0.9% 100 ml @ 100 mls/hr IVPB Q8HR [facility] Rx#:[id number] Levofloxacin 500Mg-D5w 100 Pmx 500 mg In Dextrose/ Water 1 100ml.bag @ 100 mls/hr IVPB Q24H [facility] Rx#: [id number] Magnesium Sulfate-D5w Pmx 300 1 gm In Dextrose/Water 1 100ml.bag @ 100 mls/hr IVPB Q1H [facility] Rx#: [id number] Magnesium Sulfate-D5w Pmx 100 1 gm In Dextrose/Water 1 100ml.bag @ 100 mls/hr IVPB Q1H [facility] Rx#: [id number] Potassium Chloride 20 meq 300 In Water For Injection 1 100ml.bag @ 50 mls/hr IVPB Q2H [facility] Rx#: [id number] Vancomycin 2,000 mg In 500 Sodium Chloride 0.9% 500 ml 500 ml @ 167 mls/hr IVPB ONCE ONE Rx#: [id number] Blood Product 610 Rc As-1 Unit 300 [id number] Output: Urine 1485 795 255 Other: Voiding Method Indwelling Catheter Indwelling Catheter Indwelling Catheter - Constitutional General appearance: Present: no acute distress, obese - EENT Eyes: Present: anicteric sclerae ENT: Present: hearing grossly normal - Respiratory Respiratory: bilateral: diminished - Cardiovascular Rhythm: regular Heart sounds: normal: S1, S2 Abnormal Heart Sounds: Absent: systolic murmur, diastolic murmur, rub, S3 Gallop, S4 Gallop, click, other - Gastrointestinal General gastrointestinal: Present: normal bowel sounds, soft - Musculoskeletal Musculoskeletal: Present: generalized weakness - Labs CBC & Chem 7: 11/25/19 04:35 11/25/19 04:35 Labs: Abnormal Lab Results - Last 24 Hours (Table) 11/23/19 11/24/19 11/24/19 Range/Units 11:55 04:25 14:30 WBC (3.8-10.6) k/uL RBC (3.80-5.40) m/uL Hgb (11.4-16.0) gm/dL Hct (34.0-46.0) % RDW (11.5-15.5) % Plt Count (150-450) k/uL Potassium (3.5-5.1) mmol/L Glucose (74-99) mg/dL Ferritin 1536.9 H (10.0-291.0) ng/mL Total Bilirubin (0.2-1.3) mg/dL C-Reactive Protein (<10.0) mg/L Total Protein (6.3-8.2) g/dL Albumin (3.5-5.0) g/dL Procalcitonin 3.04 H (0.02-0.09) ng/mL Crossmatch See Detail 11/24/19 11/24/19 11/25/19 Range/Units 15:02 15:02 04:35 WBC 0.8 L* (3.8-10.6) k/uL RBC 2.39 L (3.80-5.40) m/uL Hgb 8.1 L (11.4-16.0) gm/dL Hct 23.0 L (34.0-46.0) % RDW 18.0 H (11.5-15.5) % Plt Count 39 L (150-450) k/uL Potassium 3.3 L (3.5-5.1) mmol/L Glucose 144 H (74-99) mg/dL Ferritin (10.0-291.0) ng/mL Total Bilirubin 1.7 H (0.2-1.3) mg/dL C-Reactive Protein 579.8 H (<10.0) mg/L Total Protein 6.1 L (6.3-8.2) g/dL Albumin 3.0 L (3.5-5.0) g/dL Procalcitonin (0.02-0.09) ng/mL Crossmatch 11/25/19 Range/Units 04:35 WBC 0.6 L* (3.8-10.6) k/uL RBC 2.35 L (3.80-5.40) m/uL Hgb 7.9 L (11.4-16.0) gm/dL Hct 22.7 L (34.0-46.0) % RDW 17.8 H (11.5-15.5) % Plt Count 35 L (150-450) k/uL Potassium (3.5-5.1) mmol/L Glucose (74-99) mg/dL Ferritin (10.0-291.0) ng/mL Total Bilirubin (0.2-1.3) mg/dL C-Reactive Protein (<10.0) mg/L Total Protein (6.3-8.2) g/dL Albumin (3.5-5.0) g/dL Procalcitonin (0.02-0.09) ng/mL Crossmatch Microbiology - Last 24 Hours (Table) 11/23/19 11:49 Blood Culture - Preliminary Blood No Growth after 24 hours - Imaging and Cardiology Chest x-ray: report reviewed Assessment and Plan (1) Pancytopenia Narrative/Plan: Transfuse to keep hemoglobin 7 or higher-hemoglobin 7.9, no need for transfusion today. Transfuse to keep platelets greater than 10,000 unless patient is showing signs or symptoms of bleeding. Platelets 35,000 today, no transfusion. G-CSF has been started-continue CBC daily Labs reviewed, no evidence at this time to suggest hemolysis or DIC Current Visit: Yes Status: Acute Priority: High Code(s): D61.818 - OTHER PANCYTOPENIA SNOMED Code(s): 381213653 (2) Ovarian cancer Narrative/Plan: on maintenance Rubraca, hold for now Current Visit: No Status: Chronic Priority: Low Code(s): C56.9 - MALIGNANT NEOPLASM OF UNSPECIFIED OVARY SNOMED Code(s): 087819385 (3) Breast cancer Narrative/Plan: History of, no current treatment. Current Visit: No Status: Chronic Priority: Low Code(s): C50.919 - MALIGNANT NEOPLASM OF UNSP SITE OF UNSPECIFIED FEMALE BREAST SNOMED Code(s): 279602776 Plan: In regards to patient's malignancy history, I did speak with her primary oncologist Dr. Vaughn, her most recent scans showed no evidence of disease, pt has no known disease in her lungs. She was changed from Lynparza to Rubraca due to insurance issues-maintenance therapy. Based on presentation, concern is for an atypical respiratory infection. If patient has persistent bilateral infiltrates recommendation is for bronchoscopy and specimen collection to evaluate for an atypical infection. Case was discussed with Pulmonary DNP. They will continue to monitor patient and proceed with procedures as appropriate. Antibiotics per ID Cont steroids initiated for concern of drug induced pneumonitis Close follow up
--- NOTE | 2019-11-25 12:25 | P.PN ---
Subjective Progress Note Date: 11/25/19 Delayed charting: Note reflective of evaluation from 10 am on 11/24 The patient is a 53-year-old female with a PMH of BRCA1 and BRCA2 positive breast and ovarian cancers, initially diagnosed 2003 with multiple relapses, last relapse in 2016, currently on Rubraca for maintenance presented to the ED for gradually worsening shortness of breath, decreased exercise tolerance, and a pale complexion. The patient reported that her symptoms started after she returned from a trip to [facility] at the end of September. She reported that in early October she had developed a cold, after which she slowly developed her symptoms. Patient reported that she has a history of hemorrhoids and regularly bleeds with bright red blood upon wiping and in the toilet bowl, though notes that the bleeding did stop roughly 2-3 weeks ago. She otherwise denied abdominal pain, fever, cough, chills, chest pain, nausea, or vomiting. The patient underwent an extensive evaluation in the emergency room. Upon presentation, her vital signs were P 124, BP 125/62, 85% on 3L NC, T 99.3. Laboratory evaluation revealed WBC count 1.3, hemoglobin 5.2, platelets 60, lactic acid 7.5, troponin 0.049, BUN 23, creatinine 1.15, BNP 6530, FOBT negative, and negative acetone. Chest x-ray revealed diffuse interstitial and alveolar pattern with multifocal areas of consolidation. Chest CTA showing aparna areas of consolidation with ground-glass changes involving the upper lobes, possibly pulmonary edema. She was given azithromycin, and 2 units of PRBCs were ordered and the patient was admitted to the medical ICU for further management. The patient was initially placed on BiPAP. She was switched to Levaquin and was given multiple doses of IV lasix for fluid overload. Hematology was consulted and recommended that the patient may have pneumonitis either due to a drug reaction or viral in nature vs an atypical infection. She was started on IV Steroids. She was also started on G-CSF and had received a total of 3 U of pRBCs. The patient also expressed suicidal ideation for which psychiatry was consulted and recommended one-to-one sitter and resuming her anti-depressants from home. The patient was titrated off BiPAP and was started on high flow nasal cannula. Infectious disease was consulted and the patient was started on aztreonam, Diflucan, and vancomycin. Patient was seen and examined at the bedside on 11/25. She appeared more comfortable while on the high flow nasal cannula. She continues to be anxious though reports that her breathing has improved from yesterday. She also reported diffuse upper abdominal discomfort. Denied fever, chills, nausea, vomiting, or diarrhea. Objective - Vital Signs Vital signs: Vital Signs Temp 97.9 F 11/25/19 08:00 Pulse 99 11/25/19 11:49 Resp 23 11/25/19 11:00 BP 133/82 11/25/19 11:00 Pulse Ox 94 L 11/25/19 11:00 Intake & Output 11/24/19 11/25/19 11/25/19 18:59 06:59 18:59 Intake Total 2110 825 680 Output Total 1485 795 255 Balance 625 30 425 Weight 99 kg Intake: IV 900 625 80 Sodium Chloride 0.9% 1, 900 625 80 000 ml @ 75 mls/hr IV . [id number] [facility] Rx#:[id number] Intake, IV Titration 600 200 600 Amount Aztreonam 2 gm In Sodium 100 Chloride 0.9% 100 ml @ 100 mls/hr IVPB Q8HR [facility] Rx#:[id number] Levofloxacin 500Mg-D5w 100 Pmx 500 mg In Dextrose/ Water 1 100ml.bag @ 100 mls/hr IVPB Q24H [facility] Rx#: [id number] Magnesium Sulfate-D5w Pmx 300 1 gm In Dextrose/Water 1 100ml.bag @ 100 mls/hr IVPB Q1H [facility] Rx#: [id number] Magnesium Sulfate-D5w Pmx 100 1 gm In Dextrose/Water 1 100ml.bag @ 100 mls/hr IVPB Q1H [facility] Rx#: [id number] Potassium Chloride 20 meq 300 In Water For Injection 1 100ml.bag @ 50 mls/hr IVPB Q2H [facility] Rx#: [id number] Vancomycin 2,000 mg In 500 Sodium Chloride 0.9% 500 ml 500 ml @ 167 mls/hr IVPB ONCE ONE Rx#: [id number] Blood Product 610 Rc As-1 Unit 300 [id number] Output: Urine 1485 795 255 Other: Voiding Method Indwelling Catheter Indwelling Catheter Indwelling Catheter - Exam General: Female, in no apparent distress, appears stated age, morbidly obese, on high flow nasal cannula HEENT: NC/AT, anicteric sclerae, moist conjunctiva, no lid-lag, PERRLA Cardiovascular: S1/S2 wnl, no murmurs, rubs, or gallops Lungs: Clear to auscultation except for some scattered ronchi and minimal bibasilar rales, normal respiratory effort, no accessory muscle use Abdominal: Soft, non-tender, non-distended, no guarding, rebound, or rigidity Skin: Warm, dry Extremities: Trace aparna LE edema, no contractures Psychiatric: Alert and oriented to person, place and time, appropriate affect Neuro: CN II-XII grossly intact, Strength 5/5 in all 4 extremities, Speech intact, Sensation to light touch grossly intact throughout - Labs CBC & Chem 7: 11/25/19 04:35 11/25/19 04:35 Labs: Abnormal Lab Results - Last 24 Hours (Table) 11/23/19 11/24/19 11/24/19 Range/Units 11:55 04:25 14:30 WBC (3.8-10.6) k/uL RBC (3.80-5.40) m/uL Hgb (11.4-16.0) gm/dL Hct (34.0-46.0) % RDW (11.5-15.5) % Plt Count (150-450) k/uL Potassium (3.5-5.1) mmol/L Glucose (74-99) mg/dL Ferritin 1536.9 H (10.0-291.0) ng/mL Total Bilirubin (0.2-1.3) mg/dL C-Reactive Protein (<10.0) mg/L Total Protein (6.3-8.2) g/dL Albumin (3.5-5.0) g/dL Procalcitonin 3.04 H (0.02-0.09) ng/mL Crossmatch See Detail 11/24/19 11/24/19 11/25/19 Range/Units 15:02 15:02 04:35 WBC 0.8 L* (3.8-10.6) k/uL RBC 2.39 L (3.80-5.40) m/uL Hgb 8.1 L (11.4-16.0) gm/dL Hct 23.0 L (34.0-46.0) % RDW 18.0 H (11.5-15.5) % Plt Count 39 L (150-450) k/uL Potassium 3.3 L (3.5-5.1) mmol/L Glucose 144 H (74-99) mg/dL Ferritin (10.0-291.0) ng/mL Total Bilirubin 1.7 H (0.2-1.3) mg/dL C-Reactive Protein 579.8 H (<10.0) mg/L Total Protein 6.1 L (6.3-8.2) g/dL Albumin 3.0 L (3.5-5.0) g/dL Procalcitonin (0.02-0.09) ng/mL Crossmatch 11/25/19 Range/Units 04:35 WBC 0.6 L* (3.8-10.6) k/uL RBC 2.35 L (3.80-5.40) m/uL Hgb 7.9 L (11.4-16.0) gm/dL Hct 22.7 L (34.0-46.0) % RDW 17.8 H (11.5-15.5) % Plt Count 35 L (150-450) k/uL Potassium (3.5-5.1) mmol/L Glucose (74-99) mg/dL Ferritin (10.0-291.0) ng/mL Total Bilirubin (0.2-1.3) mg/dL C-Reactive Protein (<10.0) mg/L Total Protein (6.3-8.2) g/dL Albumin (3.5-5.0) g/dL Procalcitonin (0.02-0.09) ng/mL Crossmatch Microbiology - Last 24 Hours (Table) 11/23/19 11:49 Blood Culture - Preliminary Blood No Growth after 24 hours Assessment and Plan Plan: Pancytopenia, likely a drug side effect from Rubraca -S/p 3 U of pRBCs -Low suspicion for GI bleed since pancytopenia and neg FOBT -Hematology recommendations appreciated -Neutropenic precautions -Continue to monitor CBC -C/w Filgrastim Shortness of breath, likely atypical pneumonia vs pneumonitis versus component of fluid overload -Continue with positive pressure support with high flow nasal cannula -Currently on IV steroids -Infectious disease recommendations appreciated -Continue with levofloxacin, aztreonam and vancomycin -Echocardiogram pending -Holding IVFs Lactic acidosis, resolved Troponin elevation -Cardiology recommendations appreciated -Likely due to sinus tachycardia from severe anemia -Cardiac monitoring -Echo pending Hypomagnesemia and hypokalemia -Replace and monitor Depression with suicidal ideation -Psychiatry recommendations appreciated RAN -Monitor BMP DVT prophylaxis -IPCDs
[2019-11-25] MEDS: VANCOMYCIN 1,750 MG in SODIUM CHLORIDE 0.9% 500 ML 500 ML IVPB SCH (19:54)
[2019-11-25] MEDS: LEVOFLOXACIN 500 MG TAB PO SCH (21:39)
[2019-11-25] MEDS: QUEtiapine 50 MG TAB PO SCH (21:39)
[2019-11-26 05:10] LABS: Anisocytosis Slight; HCT 22.2 % (34.0-46.0); HGB 7.6 gm/dL (11.4-16.0); MCH 33.5 pg (25.0-35.0); MCHC 34.1 g/dL (31.0-37.0); MCV 98.1 fL (80.0-100.0); Macrocytosis Slight; RBC 2.26 m/uL (3.80-5.40)
[2019-11-26 05:11] LABS: Platelet Count 34 k/uL (150-450); WBC 0.7 k/uL (3.8-10.6)
[2019-11-26 05:22] LABS: ALT 9 U/L (4-34); AST 20 U/L (14-36); African American GFR (CKD) >90 (>60 ml/min/1.73 sqM); Albumin 2.7 g/dL (3.5-5.0); Alkaline Phosphatase 87 U/L (38-126); Anion Gap 7 mmol/L; Blood Urea Nitrogen 25 mg/dL (7-17); Calcium 8.8 mg/dL (8.4-10.2); Carbon Dioxide 26 mmol/L (22-30); Chloride 105 mmol/L (98-107); Glucose 132 mg/dL (74-99); Non-African American GFR(CKD) >90 (>60 ml/min/1.73 sqM); Potassium 4.1 mmol/L (3.5-5.1); Sodium 138 mmol/L (137-145); Total Bilirubin 0.9 mg/dL (0.2-1.3); Total Protein 5.6 g/dL (6.3-8.2)
[2019-11-26] MEDS: VANCOMYCIN 1,750 MG in SODIUM CHLORIDE 0.9% 500 ML 500 ML IVPB SCH ×2 (05:58→17:22)
--- NOTE | 2019-11-26 06:33 | XR ---
EXAMINATION TYPE: XR chest 1V DATE OF EXAM: 11/26/2019 HISTORY: SOB. REFERENCE: Previous study dated 11/25/2019. FINDINGS: There is patchy bilateral airspace disease. Heart size upper limits of normal. I suspect sm all effusions. IMPRESSION: PATCHY BILATERAL AIRSPACE DISEASE MAY REPRESENT ALVEOLAR EDEMA OR PNEUMONIA. THERE IS IMPROVED AERATI ON ON RIGHT.
[2019-11-26] MEDS: IPRATROPIUM-ALBUTEROL 3 ML NEB INHALATION SCH ×4 (07:26→20:49)
--- NOTE | 2019-11-26 08:24 | PN ---
PROGRESS NOTE Mrs. 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 I am seeing her mainly because of a question of pulmonary edema. The clinical picture seems to be probably noncardiogenic. However, she is more comfortable resting at the time of my evaluation, does not have any chest discomfort. She is still on high-flow oxygen. Oxygen saturation is about 92% -93%. Her vitals are stable. She is on multiple antibiotics including Levaquin and also steroids. PHYSICAL EXAMINATION: Revealed a blood pressure of 130/70, pulse rate of about 90, sinus. There is JVD of 1 cm. No carotid bruit. S1-S2 heard normally but distantly. Lungs reveal bilateral fair air entry. Abdomen is soft. Lower extremities reveal diminished pulses. Central nervous system, grossly no focal deficits. From a cardiac standpoint, I would recommend that we obtain an echocardiogram to assess LV function. I discussed my thoughts in detail with the patient. Thank you very much for the consult. MMNAYELIL / IJN: [id number] /
[2019-11-26] MEDS: AZTREONAM 2 GM in SODIUM CHLORIDE 0.9% 100 ML IVPB SCH ×2 (09:19→17:15)
[2019-11-26] MEDS: PANTOPRAZOLE 40 MG/10 ML VIAL IVP SCH ×2 (09:22→20:41)
[2019-11-26] MEDS: methylPREDNISolone SOD SUCCI 125 MG/2 ML VIAL IV SCH ×2 (09:24→17:17)
[2019-11-26] MEDS ORDERED: FUROSEMIDE 10 MG/ML 10 ML VIAL IV STA (09:27)
[2019-11-26] MEDS: FLUCONAZOLE 100 MG TAB PO SCH ×2 (09:57→20:39)
[2019-11-26] MEDS: FILGRASTIM-SNDZ 480 MCG/0.8 ML SYRINGE SQ SCH (09:58)
--- NOTE | 2019-11-26 10:46 | P.PN ---
<MarlonJoanna gonzalez - Last Filed: 11/26/19 10:36> Subjective Progress Note Date: 11/26/19 Principal diagnosis: Acute hypoxemic respiratory failure secondary to interstitial pneumonia or pulmonary edema or both. The patient is seen today 11/26/2019 and follow-up in the intensive care unit. She is still tachypneic. Chest x-ray continues to show patchy bilateral airspace disease representing alveolar edema or pneumonia. Slightly improved aeration on the right. She is currently on the airflow at 55 L/m and 68% FiO2. She is 0.9 normal saline at 20 ML's per hour. She is covered with Azactam, Le vaquin, vancomycin and Diflucan. Continue bronchodilators and IV Solu-Medrol. Blood cultures reveal no growth. White count 0.7. Hemoglobin 7.6. Platelet count 34,000. Sodium 138. Potassium 4.1. Creatinine 0.58. Bicarb 26. She remains on Zarxio. Objective - Vital Signs Vital signs: Vital Signs Temp 97.9 F 11/26/19 08:00 Pulse 95 11/26/19 10:00 Resp 41 H 11/26/19 10:00 BP 130/71 11/26/19 10:00 Pulse Ox 89 L 11/26/19 10:00 Intake & Output 11/25/19 11/26/19 11/26/19 18:59 06:59 18:59 Intake Total 780 1080 100 Output Total 565 735 505 Balance 215 345 -405 Weight 100.1 kg Intake: IV 180 600 100 Aztreonam 2 gm In Sodium 100 100 Chloride 0.9% 100 ml @ 100 mls/hr IVPB Q8HR [facility] Rx#:[id number] Sodium Chloride 0.9% 1, 180 000 ml @ 75 mls/hr IV . [id number] [facility] Rx#:[id number] Vancomycin 1,750 mg In 500 Sodium Chloride 0.9% 500 ml 500 ml @ 167 mls/hr IVPB Q10H [facility] Rx#: [id number] Intake, IV Titration 600 Amount Aztreonam 2 gm In Sodium 100 Chloride 0.9% 100 ml @ 100 mls/hr IVPB Q8HR [facility] Rx#:[id number] Vancomycin 2,000 mg In 500 Sodium Chloride 0.9% 500 ml 500 ml @ 167 mls/hr IVPB ONCE ONE Rx#: [id number] Oral 480 Output: Urine 565 735 505 Other: Voiding Method Indwelling Catheter Indwelling Catheter # Voids 125 # Bowel Movements 3 - Exam GENERAL EXAM: Alert, 53-year-old female patient, tachypneic, still dyspneic at rest. Currently on AirVo at 55L/min and 68% Fio2. EYES: Normal reaction of pupils, equal size. Conjunctiva pink, sclera white. NOSE: Clear with pink turbinates. THROAT: No erythema or exudates. NECK: No masses, no JVD, no thyroid enlargement, no adenopathy. CHEST: No chest wall deformity. Symmetrical expansion. LUNGS: Equal air entry with crackles in the bilateral posterior bases, few scattered rhonchi, diminished. CVS: Regular rate and rhythm, normal S1 and S2, no gallops, no murmurs, no rubs ABDOMEN: Soft, nontender. No hepatosplenomegaly, normal bowel sounds, no guarding or rigidity. EXTREMITIES: No clubbing, no edema, no cyanosis, 2+ pulses and upper and lower extremities. MUSCULOSKELETAL: Muscle strength and tone normal. SPINE: No scoliosis or deformity SKIN: No rashes CENTRAL NERVOUS SYSTEM: No focal deficits, tone is normal in all 4 extremities. PSYCHIATRIC: Alert and oriented -3. Appropriate affect. Intact judgment and insight. - Labs CBC & Chem 7: 11/26/19 04:28 11/26/19 04:28 Labs: Abnormal Lab Results - Last 24 Hours (Table) 11/24/19 11/26/19 11/26/19 Range/Units 15:02 04:28 04:28 WBC 0.7 L* (3.8-10.6) k/uL RBC 2.26 L (3.80-5.40) m/uL Hgb 7.6 L (11.4-16.0) gm/dL Hct 22.2 L (34.0-46.0) % RDW 18.0 H (11.5-15.5) % Plt Count 34 L (150-450) k/uL BUN 25 H (7-17) mg/dL Glucose 132 H (74-99) mg/dL C-Reactive Protein 579.8 H (<10.0) mg/L Total Protein 5.6 L (6.3-8.2) g/dL Albumin 2.7 L (3.5-5.0) g/dL Microbiology - Last 24 Hours (Table) 11/23/19 11:49 Blood Culture - Preliminary Blood No Growth after 48 hours Assessment and Plan Assessment: #1. Acute hypoxemic respiratory failure likely related to interstitial pneumonia or pulmonary edema or combination of both, echocardiogram is still pending, empirically covered with antibiotics #2. Sinus tachycardia secondary to respiratory distress #3. Rule out congestive heart failure, echocardiogram is pending #4. History of ovarian cancer, status post bilateral salpingo-oophorectomy and hysterectomy, with prior multiple chemotherapeutic agents and radiation, currently on Rubraca #5. Pancytopenia #6. History of left breast cancer, status post bilateral radical mastectomy #7. Obesity #8. Elevated troponins rule out non-ST elevated myocardial infarction Plan: The patient was seen and evaluated by Dr. Munoz. She remains tachypneic and dyspneic even at rest. We will give her another trial on the BiPAP. This may be better for her than the AirVo however she was intolerant to BiPAP earlier. We'll start at 12/5 and 40% FiO2. Chest x-ray reviewed. Not much improvement. She remains on Azactam, Levaquin, vancomycin and Diflucan. Continue bronchodilators and IV Solu-Medrol. Echocardiogram is still pending. We'll give Lasix 60 mg IVP 1. Discussion was had with the patient and her at the bedside. If no significant improvement she may require intubation and mechanical ventilatory support. We'll continue to monitor closely and make further recommendations based on her clinical status. I, the cosigning physician, performed a history & physical examination of the patient. Lungs sounds with crackles in bilateral bases, few scattered rhonchi, diminished. Maintaining good O2 saturations in the 90s on 60% FiO2 per AirVo. I discussed the assessment and plan of care with my nurse practitioner, Joanna Mason. I attest to the above note as dictated by her. <Indio Munoz - Last Filed: 11/26/19 10:50> Objective - Vital Signs Vital signs: Vital Signs Temp 97.9 F 11/26/19 08:00 Pulse 95 11/26/19 10:00 Resp 41 H 11/26/19 10:00 BP 130/71 11/26/19 10:00 Pulse Ox 89 L 11/26/19 10:00 Intake & Output 11/25/19 11/26/19 11/26/19 18:59 06:59 18:59 Intake Total 780 1080 100 Output Total 435 763 6100 Balance 215 345 -1030 Weight 100.1 kg Intake: IV 180 600 100 Aztreonam 2 gm In Sodium 100 100 Chloride 0.9% 100 ml @ 100 mls/hr IVPB Q8HR [facility] Rx#:[id number] Sodium Chloride 0.9% 1, 180 000 ml @ 75 mls/hr IV . [id number] [facility] Rx#:[id number] Vancomycin 1,750 mg In 500 Sodium Chloride 0.9% 500 ml 500 ml @ 167 mls/hr IVPB Q10H [facility] Rx#: [id number] Intake, IV Titration 600 Amount Aztreonam 2 gm In Sodium 100 Chloride 0.9% 100 ml @ 100 mls/hr IVPB Q8HR [facility] Rx#:[id number] Vancomycin 2,000 mg In 500 Sodium Chloride 0.9% 500 ml 500 ml @ 167 mls/hr IVPB ONCE ONE Rx#: [id number] Oral 480 Output: Urine 596 416 1806 Other: Voiding Method Indwelling Catheter Indwelling Catheter # Voids 125 # Bowel Movements 3 - Labs CBC & Chem 7: 11/26/19 04:28 11/26/19 04:28 Labs: Abnormal Lab Results - Last 24 Hours (Table) 11/24/19 11/26/19 11/26/19 Range/Units 15:02 04:28 04:28 WBC 0.7 L* (3.8-10.6) k/uL RBC 2.26 L (3.80-5.40) m/uL Hgb 7.6 L (11.4-16.0) gm/dL Hct 22.2 L (34.0-46.0) % RDW 18.0 H (11.5-15.5) % Plt Count 34 L (150-450) k/uL BUN 25 H (7-17) mg/dL Glucose 132 H (74-99) mg/dL C-Reactive Protein 579.8 H (<10.0) mg/L Total Protein 5.6 L (6.3-8.2) g/dL Albumin 2.7 L (3.5-5.0) g/dL Microbiology - Last 24 Hours (Table) 11/23/19 11:49 Blood Culture - Preliminary Blood No Growth after 48 hours Assessment and Plan Time with Patient: Greater than 30 (CC time is 33 minutes)
--- NOTE | 2019-11-26 12:00 | P.PN ---
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 The patient reported that her symptoms started after she returned from a trip to [facility] at the end of September. She reported that in early October she had developed a cold, after which she slowly developed her symptoms. Patient reported that she has a history of hemorrhoids and regularly bleeds with bright red blood upon wiping and in the toilet bowl, though notes that the bleeding did stop roughly 2-3 weeks ago. She otherwise denied abdominal pain, fever, cough, chills, chest pain, nausea, or vomiting. The patient underwent an extensive evaluation in the emergency room. Upon presentation, her vital signs were P 124, BP 125/62, 85% on 3L NC, T 99.3. Laboratory evaluation revealed WBC count 1.3, hemoglobin 5.2, platelets 60, lactic acid 7.5, troponin 0.049, BUN 23, creatinine 1.15, BNP 6530, FOBT negative, and negative acetone. Chest x-ray revealed diffuse interstitial and alveolar pattern with multifocal areas of consolidation. Chest CTA showing aparna areas of consolidation with ground-glass changes involving the upper lobes, possibly pulmonary edema. She was given azithromycin, and 2 units of PRBCs were ordered and the patient was admitted to the medical ICU for further management. The patient was initially placed on BiPAP. She was switched to Levaquin and was given multiple doses of IV lasix for fluid overload. Hematology was consulted and recommended that the patient may have pneumonitis either due to a drug reaction or viral in nature vs an atypical infection. She was started on IV Steroids. She was also started on G-CSF and had received a total of 3 U of pRBCs. The patient also expressed suicidal ideation for which psychiatry was consulted and recommended one-to-one sitter and resuming her anti-depressants from home. The patient was titrated off BiPAP and was started on high flow nasal cannula. Infectious disease was consulted and the patient was started on aztreonam, Diflucan, and vancomycin. Patient was seen and examined at the bedside on 11/26. The patient continues to be on high flow nasal cannula, and appearing somewhat more comfortable than before. She notes some improvement in her shortness of breath and denying any additional complaints. Denying abdominal pain, nausea, vomiting, fever, or chills. Objective - Vital Signs Vital signs: Vital Signs Temp 97.9 F 11/26/19 08:00 Pulse 93 11/26/19 11:15 Resp 41 H 11/26/19 10:00 BP 130/71 11/26/19 10:00 Pulse Ox 89 L 11/26/19 10:00 Intake & Output 11/25/19 11/26/19 11/26/19 18:59 06:59 18:59 Intake Total 780 1080 100 Output Total 399 088 5352 Balance 215 345 -1580 Weight 100.1 kg Intake: IV 180 600 100 Aztreonam 2 gm In Sodium 100 100 Chloride 0.9% 100 ml @ 100 mls/hr IVPB Q8HR [facility] Rx#:[id number] Sodium Chloride 0.9% 1, 180 000 ml @ 75 mls/hr IV . [id number] [facility] Rx#:[id number] Vancomycin 1,750 mg In 500 Sodium Chloride 0.9% 500 ml 500 ml @ 167 mls/hr IVPB Q10H [facility] Rx#: [id number] Intake, IV Titration 600 Amount Aztreonam 2 gm In Sodium 100 Chloride 0.9% 100 ml @ 100 mls/hr IVPB Q8HR [facility] Rx#:[id number] Vancomycin 2,000 mg In 500 Sodium Chloride 0.9% 500 ml 500 ml @ 167 mls/hr IVPB ONCE ONE Rx#: [id number] Oral 480 Output: Urine [id number] [id number] Other: Voiding Method Indwelling Catheter Indwelling Catheter Indwelling Catheter # Voids 125 # Bowel Movements 3 - Exam General: Female, in no apparent distress, appears stated age, morbidly obese, on high flow nasal cannula HEENT: NC/AT, anicteric sclerae, moist conjunctiva, no lid-lag, PERRLA Cardiovascular: S1/S2 wnl, no murmurs, rubs, or gallops Lungs: Clear to auscultation except for some scattered ronchi, normal respiratory effort, no accessory muscle use Abdominal: Soft, non-tender, non-distended, no guarding, rebound, or rigidity Skin: Warm, dry Extremities: No LE edema, no contractures Psychiatric: Alert and oriented to person, place and time, appropriate affect Neuro: CN II-XII grossly intact, Strength 4/5 in all 4 extremities, Speech intact, Sensation to light touch grossly intact throughout - Labs CBC & Chem 7: 11/26/19 04:28 11/26/19 04:28 Labs: Abnormal Lab Results - Last 24 Hours (Table) 11/26/19 11/26/19 Range/Units 04:28 04:28 WBC 0.7 L* (3.8-10.6) k/uL RBC 2.26 L (3.80-5.40) m/uL Hgb 7.6 L (11.4-16.0) gm/dL Hct 22.2 L (34.0-46.0) % RDW 18.0 H (11.5-15.5) % Plt Count 34 L (150-450) k/uL BUN 25 H (7-17) mg/dL Glucose 132 H (74-99) mg/dL Total Protein 5.6 L (6.3-8.2) g/dL Albumin 2.7 L (3.5-5.0) g/dL Microbiology - Last 24 Hours (Table) 11/23/19 11:49 Blood Culture - Preliminary Blood No Growth after 48 hours Assessment and Plan Plan: Pancytopenia, likely a drug side effect from Rubraca -S/p 3 U of pRBCs -Hematology following -Neutropenic precautions -Continue to monitor CBC -C/w Filgrastim Shortness of breath, likely interstitial pneumonia -Continue with positive pressure support with high flow nasal cannula -Currently on IV steroids -Infectious disease recommendations appreciated -Continue with levofloxacin, aztreonam and vancomycin -Echocardiogram pending -Holding IVFs Lactic acidosis, resolved Troponin elevation -Cardiology recommendations appreciated -Likely due to sinus tachycardia from severe anemia -Cardiac monitoring -Echo pending Hypomagnesemia and hypokalemia -Resolved Depression with suicidal ideation -Psychiatry recommendations appreciated RAN, improved -Monitor BMP DVT prophylaxis -IPCDs
[2019-11-26] MEDS: ATENOLOL 25 MG TAB PO SCH (12:19)
[2019-11-26] MEDS: HYDROcodone/APAP 7.5-325MG 1 EACH TAB PO PRN ×2 (13:49→20:39)
[2019-11-26] MEDS: DULoxetine HCL 30 MG CAPSULE.DR PO SCH (14:11)
[2019-11-26] MEDS: busPIRone HCl 10 MG TAB PO SCH ×2 (14:11→20:39)
[2019-11-26] MEDS: LEVOFLOXACIN 500 MG TAB PO SCH (20:39)
[2019-11-26] MEDS: QUEtiapine 50 MG TAB PO SCH (20:39)
[2019-11-27] MEDS: AZTREONAM 2 GM in SODIUM CHLORIDE 0.9% 100 ML IVPB SCH ×3 (00:04→16:59)
[2019-11-27] MEDS: methylPREDNISolone SOD SUCCI 125 MG/2 ML VIAL IV SCH ×3 (00:04→17:06)
--- NOTE | 2019-11-27 01:34 | PN ---
PROGRESS NOTE DATE OF SERVICE: 11/26/2019 REASON FOR FOLLOWUP: Pneumonia with multiple antibiotic allergies. INTERVAL HISTORY: The patient is currently afebrile, hemodynamically stable, breathing comfortably, denies any chest pain. Continues to have a cough which is dry in nature. No nausea or vomiting. No abdominal pain and no diarrhea. PHYSICAL EXAMINATION: Blood pressure 130/71 with a pulse of 73, temperature 98, she is 95% on BiPAP. General description is a middle-aged female lying in bed in no distress. Respiratory system: Unlabored breathing. Decreased intensity of breath sounds. No wheeze. Heart S1, S2. Regular rate and rhythm. Abdomen soft, no tenderness. LABS: Hemoglobin 7.6, white count 0.7, creatinine 0.58. Blood culture has been negative. No sputum was collected. DIAGNOSTIC IMPRESSION AND PLAN: Patient with acute respiratory failure which is likely multifactorial with possible component of pneumonia in this patient with underlying neutropenia and multiple antibiotic allergies. The patient is currently covered with aztreonam and Levaquin to continue. We will try to obtain a sputum to narrow down antibiotics. Continue supportive. MMODL / IJN: [id number] /
[2019-11-27] MEDS: VANCOMYCIN 1,750 MG in SODIUM CHLORIDE 0.9% 500 ML 500 ML IVPB SCH ×3 (02:17→22:33)
[2019-11-27 05:00] LABS: Anisocytosis Slight; HCT 21.9 % (34.0-46.0); HGB 7.3 gm/dL (11.4-16.0); MCH 32.9 pg (25.0-35.0); MCHC 33.4 g/dL (31.0-37.0); MCV 98.6 fL (80.0-100.0); Macrocytosis Slight; Mean Platelet Volume 8.2; RBC 2.22 m/uL (3.80-5.40); RDW 17.7 % (11.5-15.5)
[2019-11-27 05:19] LABS: ALT 11 U/L (4-34); AST 21 U/L (14-36); African American GFR (CKD) >90 (>60 ml/min/1.73 sqM); Albumin 2.6 g/dL (3.5-5.0); Alkaline Phosphatase 93 U/L (38-126); Anion Gap 10 mmol/L; Blood Urea Nitrogen 26 mg/dL (7-17); Calcium 8.2 mg/dL (8.4-10.2); Carbon Dioxide 27 mmol/L (22-30); Chloride 104 mmol/L (98-107); Glucose 164 mg/dL (74-99); Non-African American GFR(CKD) >90 (>60 ml/min/1.73 sqM); Potassium 3.8 mmol/L (3.5-5.1); Sodium 141 mmol/L (137-145); Total Bilirubin 0.9 mg/dL (0.2-1.3); Total Protein 5.6 g/dL (6.3-8.2); WBC 0.5 k/uL (3.8-10.6)
[2019-11-27 05:20] LABS: Platelet Count 27 k/uL (150-450)
[2019-11-27] MEDS ORDERED: POTASSIUM CHLORIDE 20 MEQ in WATER FOR INJECTION 1 100ML.BAG IVPB STA (05:28)
[2019-11-27] MEDS ORDERED: Potassium Replacement Protocol 1 EACH MISC MISCELLANE PRN (05:31)
[2019-11-27] MEDS ORDERED: POTASSIUM CHLORIDE ER 20 MEQ TAB.ER PO SCH (06:00)
--- NOTE | 2019-11-27 06:03 | XR ---
EXAMINATION TYPE: XR chest 1V DATE OF EXAM: 11/27/2019 HISTORY: CHF. REFERENCE: Previous study dated 11/26/2019. FINDINGS: There continues to be alveolar airspace disease present bilaterally, worse on the left than the right. Heart size is largely obscured. I suspect small effusions. The overall appearance has not changed significantly. IMPRESSION: NO SIGNIFICANT INTERVAL CHANGE IN APPEARANCE OF CHEST.
[2019-11-27 06:26] LABS: ABG Base Excess 5.4 mmol/L; ABG HCO3 29 mmol/L (21-25); ABG PCO2 41 mmHg (35-45); ABG PH 7.46 (7.35-7.45); ABG PO2 72 mmHg (83-108); ABG TCO2 31 mmol/L (19-24); Allen Test Performed? Yes
[2019-11-27] MEDS: IPRATROPIUM-ALBUTEROL 3 ML NEB INHALATION SCH ×5 (07:46→23:04)
[2019-11-27] MEDS: busPIRone HCl 10 MG TAB PO SCH ×2 (08:42→22:32)
[2019-11-27] MEDS: ATENOLOL 25 MG TAB PO SCH (08:42)
[2019-11-27] MEDS: FLUCONAZOLE 100 MG TAB PO SCH ×2 (08:43→22:32)
[2019-11-27] MEDS: DULoxetine HCL 30 MG CAPSULE.DR PO SCH (08:43)
[2019-11-27] MEDS: FILGRASTIM-SNDZ 480 MCG/0.8 ML SYRINGE SQ SCH (08:43)
[2019-11-27] MEDS: PANTOPRAZOLE 40 MG/10 ML VIAL IVP SCH ×2 (08:44→22:32)
[2019-11-27] MEDS ORDERED: FUROSEMIDE 10 MG/ML 10 ML VIAL IV STA (08:52)
[2019-11-27] MEDS ORDERED: LORazepam 2 MG/ML INJ IV STA (08:52)
--- NOTE | 2019-11-27 08:53 | PN ---
PROGRESS NOTE Mrs. Bhandari has multiple malignancies. She is in sinus rhythm. Blood pressure is somewhat low. She is on some Levophed. Her echocardiogram revealed preserved systolic function, but the report could not come to the chart because of some glitch. Vital signs stable. Blood pressure is about 94 systolic. She is on a small dose of Levophed. S1-S2 heard normally. Short systolic murmur noted. Lungs reveal fair air entry. Abdomen and lower extremity exam unchanged. Patient is on a BiPAP. Prognosis remains guarded. MMODL / IJN: [id number] /
--- NOTE | 2019-11-27 09:38 | P.PN ---
Subjective Progress Note Date: 11/27/19 Principal diagnosis: Acute hypoxemic respiratory failure secondary to interstitial pneumonia or pulmonary edema or both. The patient is seen today 11/27/2019 in follow-up in the intensive care unit. She has a history of ovarian cancer status post bilateral salpingo-oophorectomy and hysterectomy with multiple chemotherapeutic agents and radiation treatment. Last chemotherapy in 2016. She has been maintained on Rubraca. She also has a history of left breast cancer status post bilateral radical mastectomy. She is currently on BiPAP 12/5 and requiring 95% FiO2 to maintain O2 saturations in the 90s. ABGs reveal a P O2 of 72, P CO2 41, pH 7.46. Chest x-ray continues show alveolar airspace disease bilaterally worse left than right but no significant interval change. No improvement. Blood cultures reveal no growth. White count 0.5. Hemoglobin 7.3. Platelets 27,000. Sodium 141. Potassium 3.8. Creatinine 0.69. Currently on DuoNeb inhalations, antibiotics in the form of aztreonam, Levaquin, vancomycin. She is also on Diflucan. She is still receiving Zarxio. Objective - Vital Signs Vital signs: Vital Signs Temp 98.6 F 11/27/19 08:00 Pulse 87 11/27/19 09:01 Resp 39 H 11/27/19 09:01 BP 136/95 11/27/19 09:01 Pulse Ox 94 L 11/27/19 09:01 Intake & Output 11/26/19 11/27/19 11/27/19 18:59 06:59 18:59 Intake Total 1000 1000 Output Total 2570 845 220 Balance -1570 155 -220 Weight 99.4 kg Intake: IV 700 600 Aztreonam 2 gm In Sodium 200 100 Chloride 0.9% 100 ml @ 100 mls/hr IVPB Q8HR [facility] Rx#:[id number] Vancomycin 1,750 mg In 500 500 Sodium Chloride 0.9% 500 ml 500 ml @ 167 mls/hr IVPB Q10H [facility] Rx#: [id number] Oral 300 400 Output: Urine 2570 845 220 Other: Voiding Method Indwelling Catheter Indwelling Catheter - Exam GENERAL EXAM: Alert, 53-year-old female patient, tachypneic, still dyspneic at rest. Currently on BiPAP 12/5 and 95% O2 saturation. EYES: Normal reaction of pupils, equal size. Conjunctiva pink, sclera white. NOSE: Clear with pink turbinates. THROAT: No erythema or exudates. NECK: No masses, no JVD, no thyroid enlargement, no adenopathy. CHEST: No chest wall deformity. Symmetrical expansion. LUNGS: Equal air entry with crackles in the bilateral posterior bases, few scattered rhonchi, diminished. CVS: Regular rate and rhythm, normal S1 and S2, no gallops, no murmurs, no rubs ABDOMEN: Soft, nontender. No hepatosplenomegaly, normal bowel sounds, no guarding or rigidity. EXTREMITIES: No clubbing, no edema, no cyanosis, 2+ pulses and upper and lower extremities. MUSCULOSKELETAL: Muscle strength and tone normal. SPINE: No scoliosis or deformity SKIN: No rashes CENTRAL NERVOUS SYSTEM: No focal deficits, tone is normal in all 4 extremities. PSYCHIATRIC: Alert and oriented -3. Appropriate affect. Intact judgment and insight. - Labs CBC & Chem 7: 11/27/19 04:15 11/27/19 04:15 Labs: Abnormal Lab Results - Last 24 Hours (Table) 11/27/19 11/27/19 11/27/19 Range/Units 04:15 04:15 06:18 WBC 0.5 L* (3.8-10.6) k/uL RBC 2.22 L (3.80-5.40) m/uL Hgb 7.3 L (11.4-16.0) gm/dL Hct 21.9 L (34.0-46.0) % RDW 17.7 H (11.5-15.5) % Plt Count 27 L (150-450) k/uL ABG pH 7.46 H (7.35-7.45) ABG pO2 72 L (83-108) mmHg ABG HCO3 29 H (21-25) mmol/L ABG Total CO2 31 H (19-24) mmol/L BUN 26 H (7-17) mg/dL Glucose 164 H (74-99) mg/dL Calcium 8.2 L (8.4-10.2) mg/dL Total Protein 5.6 L (6.3-8.2) g/dL Albumin 2.6 L (3.5-5.0) g/dL Microbiology - Last 24 Hours (Table) 11/23/19 11:49 Blood Culture - Preliminary Blood No Growth after 72 hours Assessment and Plan Assessment: #1. Acute hypoxemic respiratory failure likely related to interstitial pneumonia or pulmonary edema or combination of both, echocardiogram is still pending, covered with antibiotics in the form of vancomycin, Levaquin, aztreonam. Currently on BiPAP 12/5 and 95% FiO2. #2. Sinus tachycardia secondary to respiratory distress #3. Rule out congestive heart failure, echocardiogram is pending #4. History of ovarian cancer, status post bilateral salpingo-oophorectomy and hysterectomy, with prior multiple chemotherapeutic agents and radiation, currently on Rubraca #5. Pancytopenia #6. History of left breast cancer, status post bilateral radical mastectomy #7. Obesity #8. Elevated troponins rule out non-ST elevated myocardial infarction Plan: The patient was seen and evaluated by Dr. Munoz. She remains BiPAP 12/5 and 95% FiO2. Chest x-ray reviewed. Not much improvement. She remains on Azactam, Levaquin, vancomycin and Diflucan. Continue bronchodilators and IV Solu-Medrol. Echocardiogram is still pending. We'll give Lasix 60 mg IVP 1 again today. She diuresed well yesterday. Her remains at the bedside and Dr. Munoz had further discussion. If no significant improvement she may require intubation and mechanical ventilatory support. She remains quite anxious. We'll give Ativan 0.5 mg IVP 1. We'll continue to monitor closely and make further recommendations based on her clinical status. Critical care time 36 minutes. I, the cosigning physician, performed a history & physical examination of the patient. Lungs sounds with crackles in bilateral bases, few scattered rhonchi, diminished. Maintaining O2 saturations in the 90s on 95% FiO2 per BiPAP 12/5. I discussed the assessment and plan of care with my nurse practitioner, Joanna Mason. I attest to the above note as dictated by her. Time with Patient: Greater than 30
--- NOTE | 2019-11-27 09:51 | P.PN ---
Subjective Progress Note Date: 11/27/19 Delayed charting: Note reflective of evaluation from 10 am on 11/24 The patient is a 53-year-old female with a PMH of BRCA1 and BRCA2 positive breast and ovarian cancers, initially diagnosed 2003 with multiple relapses, last relapse in 2016, currently on Rubraca for maintenance presented to the ED for gradually worsening shortness of breath, decreased exercise tolerance, and a pale complexion. The patient reported that her symptoms started after she returned from a trip to [facility] at the end of September. She reported that in early October she had developed a cold, after which she slowly developed her symptoms. Patient reported that she has a history of hemorrhoids and regularly bleeds with bright red blood upon wiping and in the toilet bowl, though notes that the bleeding did stop roughly 2-3 weeks ago. She otherwise denied abdominal pain, fever, cough, chills, chest pain, nausea, or vomiting. The patient underwent an extensive evaluation in the emergency room. Upon presentation, her vital signs were P 124, BP 125/62, 85% on 3L NC, T 99.3. Laboratory evaluation revealed WBC count 1.3, hemoglobin 5.2, platelets 60, lactic acid 7.5, troponin 0.049, BUN 23, creatinine 1.15, BNP 6530, FOBT negative, and negative acetone. Chest x-ray revealed diffuse interstitial and alveolar pattern with multifocal areas of consolidation. Chest CTA showing aparna areas of consolidation with ground-glass changes involving the upper lobes, possibly pulmonary edema. She was given azithromycin, and 2 units of PRBCs were ordered and the patient was admitted to the medical ICU for further management. The patient was initially placed on BiPAP. She was switched to Levaquin and was given multiple doses of IV lasix for fluid overload. Hematology was consulted and recommended that the patient may have pneumonitis either due to a drug reaction or viral in nature vs an atypical infection. She was started on IV Steroids. She was also started on G-CSF and had received a total of 3 U of pRBCs. The patient also expressed suicidal ideation for which psychiatry was consulted and recommended one-to-one sitter and resuming her anti-depressants from home. The patient was titrated off BiPAP and was started on high flow nasal cannula. Infectious disease was consulted and the patient was started on aztreonam, Diflucan, and vancomycin. Patient was seen and examined at the bedside on 11/27. The patient notes that her breathing is worsened today. Her oxygen requirements have gradually increased over the past 48 hours. She is denying fever, chills, abdominal pain, nausea, or vomiting. Objective - Vital Signs Vital signs: Vital Signs Temp 98.6 F 11/27/19 08:00 Pulse 87 11/27/19 09:01 Resp 39 H 11/27/19 09:01 BP 136/95 11/27/19 09:01 Pulse Ox 94 L 11/27/19 09:01 Intake & Output 11/26/19 11/27/19 11/27/19 18:59 06:59 18:59 Intake Total 1000 1000 Output Total 2570 845 220 Balance -1570 155 -220 Weight 99.4 kg Intake: IV 700 600 Aztreonam 2 gm In Sodium 200 100 Chloride 0.9% 100 ml @ 100 mls/hr IVPB Q8HR SRIN[facility] Rx#:[id number] Vancomycin 1,750 mg In 500 500 Sodium Chloride 0.9% 500 ml 500 ml @ 167 mls/hr IVPB Q10H [facility] Rx#: [id number] Oral 300 400 Output: Urine 2570 845 220 Other: Voiding Method Indwelling Catheter Indwelling Catheter Indwelling Catheter - Exam General: Female, in no apparent distress, appears stated age, morbidly obese, on BiPAP HEENT: NC/AT, anicteric sclerae, moist conjunctiva, no lid-lag, PERRLA Cardiovascular: S1/S2 wnl, no murmurs, rubs, or gallops Lungs: Bilateral fine crackles with some scattered ronchi, normal respiratory effort, no accessory muscle use Abdominal: Soft, non-tender, non-distended, no guarding, rebound, or rigidity Skin: Warm, dry Extremities: No LE edema, no contractures Psychiatric: Alert and oriented to person, place and time, appropriate affect Neuro: CN II-XII grossly intact, Strength 3/5 in all 4 extremities, Speech intact, Sensation to light touch grossly intact throughout - Labs CBC & Chem 7: 11/27/19 04:15 11/27/19 04:15 Labs: Abnormal Lab Results - Last 24 Hours (Table) 11/27/19 11/27/19 11/27/19 Range/Units 04:15 04:15 06:18 WBC 0.5 L* (3.8-10.6) k/uL RBC 2.22 L (3.80-5.40) m/uL Hgb 7.3 L (11.4-16.0) gm/dL Hct 21.9 L (34.0-46.0) % RDW 17.7 H (11.5-15.5) % Plt Count 27 L (150-450) k/uL ABG pH 7.46 H (7.35-7.45) ABG pO2 72 L (83-108) mmHg ABG HCO3 29 H (21-25) mmol/L ABG Total CO2 31 H (19-24) mmol/L BUN 26 H (7-17) mg/dL Glucose 164 H (74-99) mg/dL Calcium 8.2 L (8.4-10.2) mg/dL Total Protein 5.6 L (6.3-8.2) g/dL Albumin 2.6 L (3.5-5.0) g/dL Microbiology - Last 24 Hours (Table) 11/23/19 11:49 Blood Culture - Preliminary Blood No Growth after 72 hours Assessment and Plan Plan: Pancytopenia, likely a drug side effect from Rubraca -S/p 3 U of pRBCs -Hematology following -Neutropenic precautions -Continue to monitor CBC -C/w Filgrastim Shortness of breath, likely interstitial pneumonia vs pneumonitis -Continue with positive pressure support with BiPAP for now -Currently on IV steroids -Infectious disease recommendations appreciated -Currently on levofloxacin, aztreonam and vancomycin -Echocardiogram performed with apparently showing normal systolic function as per cardiology. Not showing in system due to glitch -Hold off on further IVFs -Given Lasix IVP 60 mg once on 11/26 -C/w I/Os Troponin elevation -Cardiology recommendations appreciated -Likely due to sinus tachycardia from severe anemia -Cardiac monitoring -Echo as above Depression with suicidal ideation -Psychiatry recommendations appreciated RAN, improved -Monitor BMP Hypomagnesemia and hypokalemia, resolved Lactic acidosis, resolved DVT prophylaxis -IPCDs
[2019-11-27] MEDS ORDERED: VANCOMYCIN TROUGH DUE 1 EACH MISC MISCELLANE ONE (11:00)
--- NOTE | 2019-11-27 13:17 | PN ---
PROGRESS NOTE DATE OF SERVICE: 11/27/2019 REASON FOR FOLLOWUP: Pneumonia. INTERVAL HISTORY: The patient is currently afebrile. The patient is breathing slightly comfortably, still requiring a BiPAP. He has minimal cough, not bringing up any sputum. No chest pain. No nausea. No vomiting. No abdominal pain. No diarrhea. PHYSICAL EXAMINATION: Blood pressure 136/76 with a pulse of 73, temperature 98.7, she is 95% on BiPAP. General description is a middle-aged female up in the bed in no distress. RESPIRATORY SYSTEM: Unlabored breathing. Decreased intensity of breath sounds. No wheeze. HEART: S1, S2. Regular rate and rhythm. ABDOMEN: Soft. No tenderness. LABS: Hemoglobin 7.3, white count 0.5. Creatinine 0.69. Blood culture has been negative. DIAGNOSTIC IMPRESSION AND PLAN: Patient with acute respiratory failure, which is likely multifactorial with possible component of pneumonia. The patient did have underlying neutropenia from her chemo with concern for possible gram-negative with multiple antibiotic allergies. Patient is covered with Azactam and Levaquin, to continue. Will try to obtain sputum culture to narrow down antibiotics. Continue with supportive care. MMODL / IJN: [id number] /
[2019-11-27] MEDS: HYDROcodone/APAP 7.5-325MG 1 EACH TAB PO PRN ×2 (13:55→22:34)
[2019-11-27] MEDS ORDERED: LORazepam 2 MG/ML INJ IV ONE (13:59)
[2019-11-27] MEDS ORDERED: MIDAZOLAM 1 MG/ML 5 ML VIAL ONE (14:50)
[2019-11-27] MEDS ORDERED: PROPOFOL 10 MG/ML 20 ML VIAL IV ONE (14:50)
[2019-11-27] MEDS ORDERED: SUCCINYLCHOLINE CHLORIDE VIAL 200 MG/10 ML VIAL IV ONE (14:50)
[2019-11-27] MEDS: PROPOFOL 1,000 MG in EMPTY BAG 1 BAG IV SCH ×2 (15:00→19:04)
[2019-11-27] MEDS ORDERED: CISATRACURIUM 2 MG/ML 5 ML VIAL IV ONE (15:20)
--- NOTE | 2019-11-27 15:24 | P.PN ---
Progress Note - Text Progress Note Date: 11/27/19 Intubation 11/27/2019 Called to ICU for intubation. Patient in hypoxic respiratory distress. On Bipap, with no improvement. Patient connected to ASA standard monitors, suction available. 2mg IV versed, 100mg Propofol, 100mg succinylcholine were administered. Cricoid pressure held. MAC 3 blade utilized, grade I view, 8.0mm ETT placed with ease. ET CO2 appreciated. Bilateral breath sounds. Tolerated well.
--- NOTE | 2019-11-27 15:38 | XR ---
EXAMINATION TYPE: XR chest 1V portable DATE OF EXAM: 11/27/2019 COMPARISON: 11/27/2019 HISTORY: ET tube placement FINDINGS: There are bilateral pleural effusions with cardiomegaly and bibasilar infiltrate. There is a diffuse interstitial pattern. ET tube approximately 2 cm above the shanta. NG tube seen extending in the lef t upper abdomen. Left-sided central line with the tip overlying the right atrium. IMPRESSION: 1. Diffuse pleural-parenchymal changes correlate for CHF, diffuse pneumonia or ARDS. 2. ET tube approximately 2 cm above the shanta.
[2019-11-27 16:02] LABS: ABG Base Excess 6.6 mmol/L; ABG HCO3 32 mmol/L (21-25); ABG Oxygen Saturation 94.3 % (94-97); ABG PCO2 54 mmHg (35-45); ABG PH 7.38 (7.35-7.45); ABG PO2 76 mmHg (83-108); ABG TCO2 33 mmol/L (19-24); Allen Test Performed? Yes
--- NOTE | 2019-11-27 16:20 | PN ---
PROGRESS NOTE It was clear to me as the day progressed, the patient was starting to tire from increasing work of breathing. Hence, the patient was intubated and mechanically ventilated. We placed a left internal jugular triple-lumen catheter in the right radial art line. In addition, the patient had a bronchoscopy performed with a BAL of the right middle lobe. The fluid was sent for analysis. There was no immediate complication in any of the procedures. NG tube was placed. A chest x-ray showed good placement of the central line. There was no immediate complication noted. A blood gas will be done and the ventilator will be adjusted accordingly. Initial vent settings are tidal volume 350, 100%, 5 of PEEP, volume assist-control mode and a rate of 20. I did talk to the after the procedures and let him know that everything went well. Additional recommendations and suggestions are forthcoming. NIKI / GUADALUPEN: [id number] /
[2019-11-27] MEDS: LACTATED RINGERS 1,000 ML IV SCH (16:48)
[2019-11-27] MEDS: BUDESONIDE 1 MG/2 ML NEBU INHALATION SCH (19:13)
[2019-11-27] MEDS: FORMOTEROL FUMARATE 20 MCG/2 ML NEBU INHALATION SCH (19:13)
[2019-11-27 19:35] LABS: Appearance,BF Clear; Color,BF Colorless; Nucleated Cells, Body Fluid 0 /uL; RBC, Body Fluid 0 /uL
[2019-11-27] MEDS: LEVOFLOXACIN 500 MG TAB PO SCH (22:31)
[2019-11-27] MEDS: QUEtiapine 50 MG TAB PO SCH (22:32)
[2019-11-27] MEDS: CHLORHEXIDINE GLUCONATE 15 ML CUP MUCOUS MEM SCH (22:32)
[2019-11-28] MEDS: PROPOFOL 1,000 MG in EMPTY BAG 1 BAG IV SCH ×8 (00:07→23:34)
[2019-11-28] MEDS: methylPREDNISolone SOD SUCCI 125 MG/2 ML VIAL IV SCH ×4 (01:23→23:37)
[2019-11-28] MEDS: LACTATED RINGERS 1,000 ML IV SCH ×5 (01:24→23:38)
[2019-11-28] MEDS: AZTREONAM 2 GM in SODIUM CHLORIDE 0.9% 100 ML IVPB SCH ×2 (01:25→08:33)
[2019-11-28] MEDS: IPRATROPIUM-ALBUTEROL 3 ML NEB INHALATION SCH ×6 (03:09→23:51)
[2019-11-28 04:47] LABS: Anisocytosis Slight; MCH 33.5 pg (25.0-35.0); MCHC 33.5 g/dL (31.0-37.0); Macrocytosis Slight; Mean Platelet Volume 9.5; RBC 1.99 m/uL (3.80-5.40); RDW 17.6 % (11.5-15.5)
[2019-11-28 05:02] LABS: African American GFR (CKD) >90 (>60 ml/min/1.73 sqM); Anion Gap 5 mmol/L; Blood Urea Nitrogen 28 mg/dL (7-17); Calcium 7.8 mg/dL (8.4-10.2); Carbon Dioxide 31 mmol/L (22-30); Chloride 104 mmol/L (98-107); Glucose 144 mg/dL (74-99); Non-African American GFR(CKD) >90 (>60 ml/min/1.73 sqM); Potassium 3.7 mmol/L (3.5-5.1); Sodium 140 mmol/L (137-145)
--- NOTE | 2019-11-28 05:06 | PCN ---
PROCEDURE NOTE PROCEDURE: Right radial arterial line. REASON FOR THE PROCEDURE: Frequent blood draws and blood gas monitoring. POSTOPERATIVE DIAGNOSIS: Frequent blood draws and blood gas monitoring. CAN OPERATOR: Dr. Munoz ARTERIAL LINE PLACEMENT: Indications: Hemodynamic monitoring. A time-out was completed verifying correct patient, procedure, site, positioning, and implant(s) or special equipment if applicable. Jay's test was performed to ensure adequate perfusion. The patient's right wrist was prepped and draped in sterile fashion. 1% Lidocaine was used to anesthetize the area. An 18G Arrow arterial line was introduced into the right radial artery. The catheter was threaded over the guide wire and the needle was removed with appropriate pulsatile blood return. Blood loss was minimal. The catheter was then sutured in place to the skin and a sterile dressing applied. Perfusion to the extremity distal to the point of catheter insertion was checked and found to be adequate. The patient tolerated the procedure well and there were no complications. The right radial art site was used. There was good blood return and waveform. The catheter was sutured in place. There was no immediate complication. A sterile dressing was applied by the nurse. MMODL / IJN: [id number] /
--- NOTE | 2019-11-28 05:13 | PCN ---
PROCEDURE NOTE PROCEDURE: Left internal jugular triple-lumen catheter, posterior approach. PREOPERATIVE DIAGNOSIS: Administration of fluids and pressors. POSTOPERATIVE DIAGNOSIS: Administration of fluids and pressors. CLOTHING SUPERVISOR: Dr. Munoz. TRIPLE LUMEN CATHETER PLACEMENT: Indication: Hemodynamic monitoring/Intravenous access. A time-out was completed verifying correct patient, procedure, site, positioning, and implant(s) or special equipment if applicable. The patient was placed in a dependent position appropriate for triple lumen catheter placement based on the vein to be cannulated. The patient's left neck was prepped and draped in sterile fashion. 1% Lidocaine was used to anesthetize the surrounding skin area. A triple lumen 9F Cordis catheter was introduced into the internal jugular vein, posterior approach using Seldinger technique. The catheter was threaded smoothly over the guide wire and appropriate blood return was obtained. Each lumen of the catheter was evacuated of air and flushed with sterile saline. The catheter was then sutured in place to the skin and a sterile dressing applied. Perfusion to the extremity distal to the point of catheter insertion was checked and found to be adequate. There was no immediate complication. There was good blood return from all 3 ports. On x-ray, the catheter tip was seen to be in the superior vena cava/right atrial junction. The catheter was sutured in place. There was no immediate complication. The patient tolerated the procedure well. A sterile dressing was applied by the nurse. A chest x- ray obviously was ordered after the procedure. MMODL / IJN: [id number] /
--- NOTE | 2019-11-28 05:18 | PCN ---
PROCEDURE NOTE PROCEDURE: A bronchoscopy, airway examination, therapeutic lavage, BAL right middle lobe. PREOPERATIVE DIAGNOSIS: Pneumonia. POSTOPERATIVE DIAGNOSIS: Pneumonia. DESCRIPTION OF PROCEDURE: The bronchoscope was passed through the bronchoscope adapter connected to the endotracheal tube. I went immediately down into the right middle lobe and a BAL was performed, 30 mL was recovered. The fluid was sent for analysis. There was minimal airway secretions. There was no dominant mass or tumor. There was no bleeding. The secretions were thin. They did not look particularly purulent. After the procedure was performed, I did a quick and thorough evaluation of the rest of the airways including the right upper lobe and its 3 segments, right middle lobe and its 2 segments, right lower lobe and its 5 segments, left upper lobe proper and its 2 segments, lingula and its 2 segments and left lower lobe and its 4 segments. Minimal secretions. They were suctioned with the assistance of saline lavage. The bronchoscope was withdrawn. There was no immediate complication. There was informed consent and universal time-out for all 3 of these procedures. MMODL / IJN: [id number] /
[2019-11-28 05:34] LABS: WBC 0.4 k/uL (3.8-10.6)
[2019-11-28 05:35] LABS: HCT 19.9 % (34.0-46.0); HGB 6.7 gm/dL (11.4-16.0); Platelet Count 17 k/uL (150-450)
[2019-11-28 05:44] LABS: Rouleaux Present
[2019-11-28 05:50] LABS: ABG Base Excess 5.6 mmol/L; ABG HCO3 30 mmol/L (21-25); ABG Oxygen Saturation 91.5 % (94-97); ABG PCO2 45 mmHg (35-45); ABG PH 7.43 (7.35-7.45); ABG PO2 62 mmHg (83-108); ABG TCO2 31 mmol/L (19-24)
[2019-11-28 06:11] LABS: Allen Test Performed? no
[2019-11-28] MEDS ORDERED: POTASSIUM BICARBONATE/CIT AC 20 MEQ TABLET.EFF NG-TUBE SCH (07:00)
[2019-11-28] MEDS: FORMOTEROL FUMARATE 20 MCG/2 ML NEBU INHALATION SCH ×2 (07:26→20:44)
[2019-11-28] MEDS: BUDESONIDE 1 MG/2 ML NEBU INHALATION SCH ×2 (07:26→20:44)
--- NOTE | 2019-11-28 07:44 | XR ---
EXAMINATION TYPE: XR chest 1V portable DATE OF EXAM: 11/28/2019 COMPARISON: 11/27/2019 HISTORY: Tube placement FINDINGS: There are bilateral pleural effusions with cardiomegaly and bibasilar infiltrate. There is a diffuse interstitial pattern. ET tube is 2 cm above the shanta. NG tube appears in good position. Central li ne again noted. IMPRESSION: 1. Diffuse bilateral airspace disease appears to be progressed. Correlate for pulmonary edema, ARDS o r diffuse pneumonia.
--- NOTE | 2019-11-28 07:50 | P.PN ---
Subjective Progress Note Date: 11/28/19 Principal diagnosis: Acute hypoxic respiratory failure This is a 53-year-old female patient who was admitted to the hospital with acute hypoxic respiratory failure. The patient does have history of cancer and she is status post bilateral radical mastectomy. She was pancytopenic. The patient was seen this morning. She continues to be intubated and on ventilatory support. The blood pressure has been marginally low but she is off any vasopressors. She has been maintaining normal sinus mechanism. The chest x-ray was reviewed this morning and showed worsening heart failure/pneumonia. The patient is on Lasix at this point. She is also on antibiotic. Blood work continues to show pancytopenia with a hemoglobin below 7 and she is in process of receiving one unit of packed RBC. Objective - Vital Signs Vital signs: Vital Signs Temp 98.6 F 11/28/19 04:00 Pulse 94 11/28/19 07:32 Resp 36 H 11/28/19 06:00 BP 97/53 11/28/19 06:00 Pulse Ox 90 L 11/28/19 06:00 Intake & Output 11/27/19 11/28/19 11/28/19 18:59 06:59 18:59 Intake Total 6427.448 9890.414 Output Total 2195 2120 Balance -867.565 -171.586 Weight 101.4 kg Intake: IV 700 801 Aztreonam 2 gm In Sodium 200 Chloride 0.9% 100 ml @ 100 mls/hr IVPB Q8HR [facility] Rx#:[id number] Lactated Ringers 1,000 ml 300 @ 150 mls/hr IV .Q6H40M SR[facility]AS Rx#:[id number] Vancomycin 1,750 mg In 500 501 Sodium Chloride 0.9% 500 ml 500 ml @ 167 mls/hr IVPB Q10H [facility] Rx#: [id number] Intake, IV Titration 555.419 9109.414 Amount Lactated Ringers 1,000 ml 300 900 @ 150 mls/hr IV .Q6H40M [facility]IN[facility]AS Rx#:[id number] Propofol 1,000 mg In 27.435 247.414 Empty Bag 1 bag @ Titrate IV .Q0M SRIN[facility]AS Rx#: [id number] Oral 300 Output: Urine 2195 2120 Other: Voiding Method Indwelling Catheter Indwelling Catheter ABP, PAP, CO, CI - Last Documented Arterial Blood Pressure 100/47 - Constitutional General appearance: Present: no acute distress - Respiratory Respiratory: bilateral: rales - Cardiovascular Rhythm: regular Heart sounds: normal: S1, S2 - Labs CBC & Chem 7: 11/28/19 04:35 11/28/19 04:35 Labs: Abnormal Lab Results - Last 24 Hours (Table) 11/27/19 11/28/19 11/28/19 Range/Units 16:01 04:35 04:35 WBC 0.4 L* (3.8-10.6) k/uL RBC 1.99 L (3.80-5.40) m/uL Hgb 6.7 L* (11.4-16.0) gm/dL Hct 19.9 L* (34.0-46.0) % RDW 17.6 H (11.5-15.5) % Plt Count 17 L* (150-450) k/uL ABG pCO2 54 H (35-45) mmHg ABG pO2 76 L (83-108) mmHg ABG HCO3 32 H (21-25) mmol/L ABG Total CO2 33 H (19-24) mmol/L ABG O2 Saturation (94-97) % Carbon Dioxide 31 H (22-30) mmol/L BUN 28 H (7-17) mg/dL Glucose 144 H (74-99) mg/dL Calcium 7.8 L (8.4-10.2) mg/dL Crossmatch 11/28/19 11/28/19 Range/Units 05:50 06:25 WBC (3.8-10.6) k/uL RBC (3.80-5.40) m/uL Hgb (11.4-16.0) gm/dL Hct (34.0-46.0) % RDW (11.5-15.5) % Plt Count (150-450) k/uL ABG pCO2 (35-45) mmHg ABG pO2 62 L (83-108) mmHg ABG HCO3 30 H (21-25) mmol/L ABG Total CO2 31 H (19-24) mmol/L ABG O2 Saturation 91.5 L (94-97) % Carbon Dioxide (22-30) mmol/L BUN (7-17) mg/dL Glucose (74-99) mg/dL Calcium (8.4-10.2) mg/dL Crossmatch See Detail Microbiology - Last 24 Hours (Table) 11/27/19 12:00 Gram Stain - Preliminary Bronchoalviolar Lavage - Right Bronchial Washings Culture - Preliminary 11/27/19 12:00 Acid Fast Bacilli Culture - Preliminary Bronchoalviolar Lavage - Right 11/27/19 12:00 Fungal Culture - Preliminary Bronchoalviolar Lavage - Right 11/23/19 11:49 Blood Culture - Preliminary Blood No Growth after 96 hours Assessment and Plan Assessment: Assessment Acute hypoxic respiratory failure Tachycardia which has improved Fluid overload Pneumonia History of cancer Plan Continue the current medical regimen including antibiotic as well as IV diuretics Continue monitor the blood pressure and support if the systolic pressure below 90 Continue monitor the hemoglobin. She is in process of receiving one unit of packed RBC Follow-up with the patient
[2019-11-28] MEDS: VANCOMYCIN 1,750 MG in SODIUM CHLORIDE 0.9% 500 ML 500 ML IVPB SCH ×2 (08:33→18:19)
[2019-11-28] MEDS: DULoxetine HCL 30 MG CAPSULE.DR PO SCH (08:44)
[2019-11-28] MEDS: CHLORHEXIDINE GLUCONATE 15 ML CUP MUCOUS MEM SCH ×2 (08:44→20:26)
[2019-11-28] MEDS: busPIRone HCl 10 MG TAB PO SCH ×3 (08:44→20:27)
[2019-11-28] MEDS: PANTOPRAZOLE 40 MG/10 ML VIAL IVP SCH ×2 (08:45→20:27)
[2019-11-28] MEDS: FILGRASTIM-SNDZ 480 MCG/0.8 ML SYRINGE SQ SCH (08:45)
[2019-11-28] MEDS: FLUCONAZOLE 100 MG TAB PO SCH ×2 (08:45→20:27)
[2019-11-28] MEDS: NOREPINEPHRINE 4 MG in SODIUM CHLORIDE 0.9% 250 ML IV SCH ×2 (08:45→16:43)
[2019-11-28] MEDS: ATENOLOL 25 MG TAB PO SCH (09:11)
--- NOTE | 2019-11-28 09:15 | P.PN ---
Subjective Progress Note Date: 11/28/19 The patient is a 53-year-old white female, with a significant past oncologic history. The patient has a history of BRCA positivity, with right-sided breast cancer, as well as ovarian cancer. The patient has had localized recurrence of her ovarian cancer and has been able to be treated successfully with surgery and chemotherapy. Her last surgery was in 2015. She has had no evidence of recurrence since then and is currently on a PARP inhibitor Rucaparib for maintenance. Previously, she was on Olaparib for many months, but was changed to her present regimen due to coverage reasons. She follows closely with Dr. Camejo, in the [facility] system. She had a regular follow-up in 09/29 and at that time was found to have no evidence of recurrence. This patient presented to the hospital because of diffuse bilateral pulmonary infiltrates/upper lobe pneumonia as confirmed by CAT scan which shows that was done on admission. The patient has been on broad-spectrum antibiotics since. The patient also came in with pancytopenia which is thought to be drug induced. The patient has been Zarxio on a daily basis and despite that the counts have been still not recovering. In fact, the morning blood work showed a white cell count of 0.4 with a hemoglobin of 6.7 and the plated count of 17. 2 units of packed RBC has been ordered for this patient. Note that the patient was on high flow oxygen. She felt BiPAP therapy. She said high flow oxygen. She had to be intubated yesterday and placed on a mechanical ventilator for respiratory support. This morning, the patient is sedated with propofol at a dose of 50 g per KG per minute. The patient is post bronchoscopy and the bronchioloalveolar lavage has been done and the cultures still pending for now. The blood gases from this morning showed a pH of 7.43 with a pCO2 of 45 and a pO2 of 62 and this was done on a PEEP of 10 with an FiO2 of 100% and tidal volume of 350 with a rate of 20. The patient is quite tachypneic and she is currently breathing and the low 40s. Her chest x-ray showing diffuse bilateral pulmonary infiltrates. Chest x-ray shows diffuse bilateral airspace disease. ET tube is in a good location. Peak airway pressures around 31 with a static a pressure of 29. No significant orotracheal secretions. The patient is on a broad-spectrum antibiotics and she is covered with a combination of Diflucan 100 mg by mouth twice a day, IV as active I am, IV vancomycin and po the pro-calcitonin was elevated at 3.04 at time of admission. Hemodynamically, the patient is not requiring any pressors. The patient has been on a combination of Cymbalta, Seroquel and BuSpar on outpatient basis. Objective - Vital Signs Vital signs: Vital Signs Temp 98.9 F 11/28/19 08:00 Pulse 83 11/28/19 08:02 Resp 35 H 11/28/19 08:00 BP 97/53 11/28/19 08:00 Pulse Ox 91 L 11/28/19 08:00 Intake & Output 11/27/19 11/28/19 11/28/19 18:59 06:59 18:59 Intake Total 0937.230 2009.414 1162.483 Output Total 2195 2120 325 Balance -867.565 -171.586 837.483 Weight 101.4 kg Intake: IV 859 975 1015 Aztreonam 2 gm In Sodium 200 100 Chloride 0.9% 100 ml @ 100 mls/hr IVPB Q8HR [facility] Rx#:[id number] Lactated Ringers 1,000 ml 300 450 @ 150 mls/hr IV .Q6H40M [facility] Rx#:[id number] Vancomycin 1,750 mg In 500 501 500 Sodium Chloride 0.9% 500 ml 500 ml @ 167 mls/hr IVPB Q10H [facility] Rx#: [id number] Intake, IV Titration 867.346 1596.414 72.483 Amount Lactated Ringers 1,000 ml 300 900 @ 150 mls/hr IV .Q6H40M [facility] Rx#:[id number] Propofol 1,000 mg In 27.435 247.414 72.483 Empty Bag 1 bag @ Titrate IV .Q0M [facility] Rx#: [id number] Oral 300 Other 40 Output: Urine 2195 2120 325 Other: Voiding Method Indwelling Catheter Indwelling Catheter ABP, PAP, CO, CI - Last Documented Arterial Blood Pressure 98/47 - Exam GENERAL EXAM: The patient is sedated and the patient is calm and comfortable for now, intubated on a mechanical ventilator. The patient has a #8 orotracheal tube. The patient is sedated with propofol. EYES: Normal reaction of pupils, equal size. Conjunctiva pink, sclera white. NOSE: Clear with pink turbinates. THROAT: No erythema or exudates. NECK: No masses, no JVD, no thyroid enlargement, no adenopathy. CHEST: No chest wall deformity. Symmetrical expansion. LUNGS: Equal air entry with crackles in the bilateral posterior bases, few scattered rhonchi, diminished. CVS: Regular rate and rhythm, normal S1 and S2, no gallops, no murmurs, no rubs ABDOMEN: Soft, nontender. No hepatosplenomegaly, normal bowel sounds, no guarding or rigidity. EXTREMITIES: No clubbing, no edema, no cyanosis, 2+ pulses and upper and lower extremities. MUSCULOSKELETAL: Muscle strength and tone normal. SPINE: No scoliosis or deformity SKIN: No rashes CENTRAL NERVOUS SYSTEM: No focal deficits, and the patient has been was sedated with propofol. PSYCHIATRIC: Unable to perform as the patient is currently intubated on a mechanical ventilator. - Labs CBC & Chem 7: 11/28/19 04:35 11/28/19 04:35 Labs: Abnormal Lab Results - Last 24 Hours (Table) 11/27/19 11/28/19 11/28/19 Range/Units 16:01 04:35 04:35 WBC 0.4 L* (3.8-10.6) k/uL RBC 1.99 L (3.80-5.40) m/uL Hgb 6.7 L* (11.4-16.0) gm/dL Hct 19.9 L* (34.0-46.0) % RDW 17.6 H (11.5-15.5) % Plt Count 17 L* (150-450) k/uL ABG pCO2 54 H (35-45) mmHg ABG pO2 76 L (83-108) mmHg ABG HCO3 32 H (21-25) mmol/L ABG Total CO2 33 H (19-24) mmol/L ABG O2 Saturation (94-97) % Carbon Dioxide 31 H (22-30) mmol/L BUN 28 H (7-17) mg/dL Glucose 144 H (74-99) mg/dL Calcium 7.8 L (8.4-10.2) mg/dL Crossmatch 11/28/19 11/28/19 Range/Units 05:50 06:25 WBC (3.8-10.6) k/uL RBC (3.80-5.40) m/uL Hgb (11.4-16.0) gm/dL Hct (34.0-46.0) % RDW (11.5-15.5) % Plt Count (150-450) k/uL ABG pCO2 (35-45) mmHg ABG pO2 62 L (83-108) mmHg ABG HCO3 30 H (21-25) mmol/L ABG Total CO2 31 H (19-24) mmol/L ABG O2 Saturation 91.5 L (94-97) % Carbon Dioxide (22-30) mmol/L BUN (7-17) mg/dL Glucose (74-99) mg/dL Calcium (8.4-10.2) mg/dL Crossmatch See Detail Microbiology - Last 24 Hours (Table) 11/27/19 12:00 Gram Stain - Preliminary Bronchoalviolar Lavage - Right Bronchial Washings Culture - Preliminary 11/27/19 12:00 Acid Fast Bacilli Culture - Preliminary Bronchoalviolar Lavage - Right 11/27/19 12:00 Fungal Culture - Preliminary Bronchoalviolar Lavage - Right 11/23/19 11:49 Blood Culture - Preliminary Blood No Growth after 96 hours Assessment and Plan Plan: 1. Acute hypoxemic respiratory failure in a 53-year-old female patient who presents with pancytopenia, possibly drug induced. The patient had dense upper lobe infiltrate and the patient developed diffuse bilateral pulmonary infiltration with subsequent acute hypoxic respiratory failure, failed BiPAP, failed hypo-oxygen and currently she is intubated on a mechanical ventilator. She is well sedated for now. Broad-spectrum antibiotic such still in order and the patient is currently on a combination of Levaquin, aztreonam, vancomycin and Diflucan. Influenza screen was negative. Bronchoscopy and lavage was done and results are still pending for now. 2 pancytopenia, consider drug-induced as the patient was on the Rubraca on an outpatient basis regarding her ovarian cancer 3 Rule out congestive heart failure, echocardiogram is pending 4 History of ovarian cancer, status post bilateral salpingo-oophorectomy and hysterectomy, with prior multiple chemotherapeutic agents and radiation, currently on Rubraca 5 History of left breast cancer, status post bilateral radical mastectomy 6 Obesity 7 Elevated troponins rule out non-ST elevated myocardial infarction 8 chronic depression maintained on a combination of Cymbalta, BuSpar and Seroquel and outpatient basis Plan Continue vent support. Increase tidal volume to 450 Keep the PEEP of 10 with an FiO2 of 100% Awaiting the results of the bronchioloalveolar lavage Antibiotic coverage will be discussed with IV We'll discuss with oncology her pancytopenia and continue Zarxio for now Echo is pending Keep propofol for sedation Start enteral feeding for nutritional support Condition is critical. I was able to retrieve an old MRI of the abdomen and pelvis that showed no evidence of any disease progression or recurrence. The patient had some blood work was done outpatient basis which I'm going to retrieve from the primary care physician's office. Condition is critical. We'll continue to follow make further recommendations based on her progress. Critically care evaluation that was done more than 30 minutes. Time with Patient: Greater than 30
--- NOTE | 2019-11-28 09:23 | PN ---
PROGRESS NOTE DATE OF SERVICE: 11/25/2019 REASON FOR FOLLOWUP: Pneumonia. INTERVAL HISTORY: The patient is currently afebrile. The patient is breathing slightly comfortably today. Hemodynamically stable, not requiring any pressor support. No vomiting or diarrhea has been reported. PHYSICAL EXAMINATION: Blood pressure 112/69 with a pulse of 91, temperature 98.3. She is 93% on General description is a middle-aged female lying in bed in no distress. RESPIRATORY SYSTEM: Some coarse breath sounds at the bases. No wheeze. HEART: S1, S2. Regular rate and rhythm. ABDOMEN: Soft. No tenderness. EXTREMITIES: No edema of the feet. LABS: Hemoglobin 7.9, white count 0.6, BUN of 16, creatinine 0.64. Blood culture has been negative. Sputum not collected. DIAGNOSTIC IMPRESSION AND PLAN: Patient with acute respiratory failure which is likely multifactorial in this patient who did have a component of pneumonia. The patient is currently covered with Azactam and Levaquin because of her multiple allergies. Will try to obtain a sputum culture to narrow down her antibiotics. Continue with supportive care. MMODL / IJN: [id number] /
--- NOTE | 2019-11-28 10:01 | ECHOF ---
Referral Reason:CHF MEASUREMENTS -------- HEIGHT: 0.0 cm WEIGHT: 0.0 kg BP: RVIDd: 3.5 cm (< 3.3) IVSd: 1.6 cm (0.6 - 1.1) LVIDd: 4.1 cm (3.9 - 5.3) LVPWd: 1.5 cm (0.6 - 1.1) IVSs: 2.1 cm LVIDs: 1.8 cm LVPWs: 1.9 cm Ao Diam: 2.8 cm (2.0 - 3.7) AV Cusp: 1.7 cm (1.5 - 2.6) LA Diam: 3.6 cm (2.7 - 3.8) MV EXCURSION: 12.495 mm (> 18.000) MV EF SLOPE: 146 mm/s (70 - 150) EPSS: 0.7 cm MV E Marck: 0.82 m/s MV DecT: 164 ms MV A Marck: 0.34 m/s MV E/A Ratio: 2.43 RAP: 5.00 mmHg RVSP: 15.17 mmHg FINDINGS -------- Resting tachycardia (HR>100bpm). This was a technically difficult study with suboptimal views. Pt. Has Breast inplants The left ventricular size is normal. There is moderate concentric left ventricular hypertrophy. O verall left ventricular systolic function is normal with, an EF between 60 - 65 %. The right ventricle is mildly enlarged. The left atrial size is normal. The right atrial size is normal. Lumason used The aortic valve is trileaflet and appears structurally normal. The mitral valve is normal. The mitral valve leaflets are mildly thickened. There is trace mitral regurgitation. The tricuspid valve appears structurally normal. Trace tricuspid regurgitation present. Right celina tricular systolic pressure is normal at < 35 mmHg. There is no pulmonic regurgitation present. The aortic root size is normal. IVC Not well visulized. There is no pericardial effusion. CONCLUSIONS -------- 1. Resting tachycardia (HR>100bpm). 2. This was a technically difficult study with suboptimal views. 3. Pt. Has Breast inplants 4. The left ventricular size is normal. 5. There is moderate concentric left ventricular hypertrophy. 6. Overall left ventricular systolic function is normal with, an EF between 60 - 65 %. 7. The right ventricle is mildly enlarged. 8. The left atrial size is normal. 9. The right atrial size is normal. 10. Lumason used 11. The aortic valve is trileaflet and appears structurally normal. 12. The mitral valve is normal. 13. The mitral valve leaflets are mildly thickened. 14. There is trace mitral regurgitation. 15. The tricuspid valve appears structurally normal. 16. Trace tricuspid regurgitation present. 17. Right ventricular systolic pressure is normal at < 35 mmHg. 18. There is no pulmonic regurgitation present. 19. The aortic root size is normal. 20. IVC Not well visulized. 21. There is no pericardial effusion. INSOLE CHANNELER: Hina Fernandes RDCS
[2019-11-28 11:16] VITALS: BMI 38.3
[2019-11-28] MEDS: fentaNYL (PF) 1,000 MCG in SODIUM CHLORIDE 0.9% 80 ML IV SCH ×2 (11:38→18:30)
[2019-11-28] MEDS: GABAPENTIN 300 MG CAP PO SCH ×3 (11:39→20:26)
[2019-11-28 11:45] LABS: Parvovirus B-19 IgM Antibodies 0.18 INDEX (<=0.90)
[2019-11-28 11:46] LABS: Parvovirus B-19 IgG Antibodies 1.76 INDEX (<=0.90)
--- NOTE | 2019-11-28 11:52 | P.PN ---
Subjective Progress Note Date: 11/28/19 Principal diagnosis: Follow-up for acute hypoxic respiratory failure secondary to ARDS with underlying pneumonia and pancytopenia Patient seen and examined daughter at bedside Patient is deeply sedated on vent support Currently off IV pressors no spikes Of fevers overnight no reported bleeding Objective - Vital Signs Vital signs: Vital Signs Temp 98.7 F 11/28/19 09:46 Pulse 75 11/28/19 10:00 Resp 28 H 11/28/19 10:00 BP 97/53 11/28/19 10:00 Pulse Ox 94 L 11/28/19 10:00 Intake & Output 11/27/19 11/28/19 11/28/19 18:59 06:59 18:59 Intake Total 1283.891 5841.414 1312.483 Output Total 2195 2120 400 Balance -867.565 -171.586 912.483 Weight 101.4 kg Intake: IV 240 992 5211 Aztreonam 2 gm In Sodium 200 100 Chloride 0.9% 100 ml @ 100 mls/hr IVPB Q8HR [facility] Rx#:[id number] Lactated Ringers 1,000 ml 300 600 @ 150 mls/hr IV .Q6H40M [facility] Rx#:[id number] Vancomycin 1,750 mg In 500 501 500 Sodium Chloride 0.9% 500 ml 500 ml @ 167 mls/hr IVPB Q10H [facility] Rx#: [id number] Intake, IV Titration 745.454 0428.414 72.483 Amount Lactated Ringers 1,000 ml 300 900 @ 150 mls/hr IV .Q6H40M [facility] Rx#:[id number] Propofol 1,000 mg In 27.435 247.414 72.483 Empty Bag 1 bag @ Titrate IV .Q0M [facility] Rx#: [id number] Oral 300 Blood Product 0 Rc Pheresis 2 As3 Unit 0 [id number] Other 40 Output: Urine 2195 2120 400 Other: Voiding Method Indwelling Catheter Indwelling Catheter ABP, PAP, CO, CI - Last Documented Arterial Blood Pressure 89/40 - Exam Constitutional: vital signs stable, patient deeply sedated on vent support Lungs: Audible sounds throughout decrease at lung bases with crackles and scattered rhonchi Cardiovascular: Regular rate and rhythm, no murmurs, no gallops, no rubs, no peripheral edema Gastrointestinal: Soft, no tenderness to palpation, no palpable hepatosplenomegally, bowel sounds positive Extremities: No digital cyanosis or clubbing, peripheral pulses palpable and equal , no calf muscle tenderness Psych: Patient is deeply sedated Tom catheter in place - Labs CBC & Chem 7: 11/28/19 04:35 11/28/19 04:35 Labs: Abnormal Lab Results - Last 24 Hours (Table) 11/23/19 11/27/19 11/28/19 Range/Units 11:55 16:01 04:35 WBC 0.4 L* (3.8-10.6) k/uL RBC 1.99 L (3.80-5.40) m/uL Hgb 6.7 L* (11.4-16.0) gm/dL Hct 19.9 L* (34.0-46.0) % RDW 17.6 H (11.5-15.5) % Plt Count 17 L* (150-450) k/uL ABG pCO2 54 H (35-45) mmHg ABG pO2 76 L (83-108) mmHg ABG HCO3 32 H (21-25) mmol/L ABG Total CO2 33 H (19-24) mmol/L ABG O2 Saturation (94-97) % Carbon Dioxide (22-30) mmol/L BUN (7-17) mg/dL Glucose (74-99) mg/dL Calcium (8.4-10.2) mg/dL Crossmatch See Detail 11/28/19 11/28/19 11/28/19 Range/Units 04:35 05:50 06:25 WBC (3.8-10.6) k/uL RBC (3.80-5.40) m/uL Hgb (11.4-16.0) gm/dL Hct (34.0-46.0) % RDW (11.5-15.5) % Plt Count (150-450) k/uL ABG pCO2 (35-45) mmHg ABG pO2 62 L (83-108) mmHg ABG HCO3 30 H (21-25) mmol/L ABG Total CO2 31 H (19-24) mmol/L ABG O2 Saturation 91.5 L (94-97) % Carbon Dioxide 31 H (22-30) mmol/L BUN 28 H (7-17) mg/dL Glucose 144 H (74-99) mg/dL Calcium 7.8 L (8.4-10.2) mg/dL Crossmatch See Detail Microbiology - Last 24 Hours (Table) 11/27/19 12:00 Gram Stain - Preliminary Bronchoalviolar Lavage - Right Bronchial Washings Culture - Preliminary 11/27/19 12:00 Acid Fast Bacilli Culture - Preliminary Bronchoalviolar Lavage - Right 11/27/19 12:00 Fungal Culture - Preliminary Bronchoalviolar Lavage - Right 11/23/19 11:49 Blood Culture - Preliminary Blood No Growth after 96 hours Assessment and Plan Assessment: The patient is a 53-year-old female with a PMH of BRCA1 and BRCA2 positive breast and ovarian cancers, initially diagnosed 2003 with multiple relapses, last relapse in 2015, currently on Rubraca for maintenance presented to the ED for gradually worsening shortness of breath, decreased ex ercise tolerance, and a pale complexion. The patient reported that her symptoms started after she returned from a trip to [facility] at the end of September. She reported that in early October she had developed a cold, after which she slowly developed her symptoms. Patient reported that she has a history of hemorrhoids and regularly bleeds with bright red blood upon wiping and in the toilet bowl, though notes that the bleeding did stop roughly 2-3 weeks ago. The patient underwent an extensive evaluation in the emergency room. Upon presentation, her vital signs were P 124, BP 125/62, 85% on 3L NC, T 99.3. Laboratory evaluation revealed WBC count 1.3, hemoglobin 5.2, platelets 60, lactic acid 7.5, troponin 0.049, BUN 23, creatinine 1.15, BNP 6530, FOBT negative, and negative acetone. Chest x-ray revealed diffuse interstitial and alveolar pattern with multifocal areas of consolidation. Chest CTA showing aparna areas of consolidation with ground-glass changes involving the upper lobes, possibly pulmonary edema. She was given azithromycin, and 2 units of PRBCs were ordered and the patient was admitted to the medical ICU for further management. The patient was initially placed on BiPAP. She was switched to Levaquin and was given multiple doses of IV lasix for fluid overload. Hematology was consulted and recommended that the patient may have pneumonitis either due to a drug r eaction or viral in nature vs an atypical infection. She was started on IV Steroids. She was also started on G-CSF and had received a total of 3 U of pRBCs. The patient also expressed suicidal ideation for which psychiatry was consulted and recommended one-to-one sitter and resuming her anti-depressants from home. The patient was titrated off BiPAP and was started on high flow nasal cannula. Infectious disease was consulted and the patient was started on aztreonam, Diflucan, and vancomycin. 11/27. The patient notes that her breathing is worsened today. Her oxygen requirements have gradually increased over the past 48 hours. She is denying fever, chills, abdominal pain, nausea, or vomiting. 11/28 patient is intubated on mechanical ventilation , CXR showing progression of disease with picture suggestive of ARDS. patient continues on aggressive supportive measures. await bronchial wash cultures. Plan: acute hypoxemic respiratory failure , with underlying acute respiratory distress syndrome suspected underlying pneumonia Sepsis secondary to pneumonia Vent dependant respiratory failure secondary to above Pancytopenia thought to be drug induced secondary to Rubraca plan aggressive supportive measures, management in the ICU currently on a combination of Levaquin, aztreonam, vancomycin and Diflucan. Influenza screen was negative. Bronchoscopy and lavage was done and results are still pending for now. Echo cardiogram showed LVEF 60-65% elevated procalcitonin off IV pressors at this time , levophed on standby CXR progressive disease and infilterates, ARDS, given dose of lasix blood transfusion for Hgb less than 7 vent management per pulmonary antibiotics per ID recs, await cultures and BAL initiate enteral feeding continue with sedation follow up hgb closely , cbc and CMP, replace electrolytes as needed chronic conditions history of breast and ovarian cancer status post bilateral salpingo-oophorectomy and hysterectomy, with prior multiple chemotherapeutic agents and radiation, currently on Rubraca suicidal ideation with chronic depression maintained on a combination of Cymbalta, BuSpar and Seroquel DVT prophylaxis -IPCDs guarded prognosis
--- NOTE | 2019-11-28 14:16 | P.PN ---
Subjective Progress Note Date: 11/28/19 Principal diagnosis: difficulty in breathing In follow-up today patient is sedated and mechanically ventilated. She does not appear to be in any distress, her family is at the bedside Objective - Vital Signs Vital signs: Vital Signs Temp 98.9 F 11/28/19 12:22 Pulse 86 11/28/19 14:00 Resp 27 H 11/28/19 14:00 BP 119/53 11/28/19 12:22 Pulse Ox 90 L 11/28/19 14:00 Intake & Output 11/27/19 11/28/19 11/28/19 18:59 06:59 18:59 Intake Total 6507.628 3133.414 2682.483 Output Total 2195 2120 700 Balance -867.565 -891.052 5133.483 Weight 101.4 kg 101.4 kg Intake: IV 758 166 4455 Aztreonam 2 gm In Sodium 200 100 Chloride 0.9% 100 ml @ 100 mls/hr IVPB Q8HR [facility] Rx#:[id number] Lactated Ringers 1,000 ml 300 1200 @ 150 mls/hr IV .Q6H40M [facility] Rx#:[id number] Vancomycin 1,750 mg In 500 501 500 Sodium Chloride 0.9% 500 ml 500 ml @ 167 mls/hr IVPB Q10H [facility] Rx#: [id number] Intake, IV Titration 176.689 4324.414 192.483 Amount Lactated Ringers 1,000 ml 300 900 @ 150 mls/hr IV .Q6H40M [facility] Rx#:[id number] Propofol 1,000 mg In 27.435 247.414 172.483 Empty Bag 1 bag @ Titrate IV .Q0M [facility] Rx#: [id number] fentaNYL (PF) 1,000 mcg 20 In Sodium Chloride 0.9% 80 ml @ 1 MCG/KG/HR 10.14 mls/hr IV .Q9H52M [facility] Rx #:[id number] Oral 300 Tube Feeding 30 Blood Product 620 Rc Pheresis 2 As3 Unit 310 [id number] Rc Pheresis As-3 Unit 310 [id number] Other 40 Output: Urine 2195 2120 700 Other: Voiding Method Indwelling Catheter Indwelling Catheter Indwelling Catheter ABP, PAP, CO, CI - Last Documented Arterial Blood Pressure 110/51 - Constitutional General appearance: Present: cooperative, obese - Cardiovascular Details: RRR on telemetry - Psychiatric Psychiatric: Absent: A&O x's 3, appropriate affect, intact judgment & insight - Labs CBC & Chem 7: 11/28/19 04:35 11/28/19 04:35 Labs: Abnormal Lab Results - Last 24 Hours (Table) 11/23/19 11/23/19 11/23/19 Range/Units 11:49 11:55 20:25 WBC (3.8-10.6) k/uL RBC (3.80-5.40) m/uL Hgb (11.4-16.0) gm/dL Hct (34.0-46.0) % RDW (11.5-15.5) % Plt Count (150-450) k/uL ABG pCO2 (35-45) mmHg ABG pO2 (83-108) mmHg ABG HCO3 (21-25) mmol/L ABG Total CO2 (19-24) mmol/L ABG O2 Saturation (94-97) % Carbon Dioxide (22-30) mmol/L BUN (7-17) mg/dL Glucose (74-99) mg/dL Calcium (8.4-10.2) mg/dL Albumin (PEP) 2.60 L (3.80-4.90) g/dL Aexbx-6-Rpishedqy 0.72 H (0.10-0.40) g/dL Ngpbh-4-Vpzixdepv 1.19 H (0.60-1.00) g/dL Parvovirus B19 IgG Ab 1.76 H (<=0.90) INDEX Crossmatch See Detail 11/27/19 11/28/19 11/28/19 Range/Units 16:01 04:35 04:35 WBC 0.4 L* (3.8-10.6) k/uL RBC 1.99 L (3.80-5.40) m/uL Hgb 6.7 L* (11.4-16.0) gm/dL Hct 19.9 L* (34.0-46.0) % RDW 17.6 H (11.5-15.5) % Plt Count 17 L* (150-450) k/uL ABG pCO2 54 H (35-45) mmHg ABG pO2 76 L (83-108) mmHg ABG HCO3 32 H (21-25) mmol/L ABG Total CO2 33 H (19-24) mmol/L ABG O2 Saturation (94-97) % Carbon Dioxide 31 H (22-30) mmol/L BUN 28 H (7-17) mg/dL Glucose 144 H (74-99) mg/dL Calcium 7.8 L (8.4-10.2) mg/dL Albumin (PEP) (3.80-4.90) g/dL Qsvcv-6-Tfuhabtim (0.10-0.40) g/dL Fcycg-4-Zpforikkh (0.60-1.00) g/dL Parvovirus B19 IgG Ab (<=0.90) INDEX Crossmatch 11/28/19 11/28/19 Range/Units 05:50 06:25 WBC (3.8-10.6) k/uL RBC (3.80-5.40) m/uL Hgb (11.4-16.0) gm/dL Hct (34.0-46.0) % RDW (11.5-15.5) % Plt Count (150-450) k/uL ABG pCO2 (35-45) mmHg ABG pO2 62 L (83-108) mmHg ABG HCO3 30 H (21-25) mmol/L ABG Total CO2 31 H (19-24) mmol/L ABG O2 Saturation 91.5 L (94-97) % Carbon Dioxide (22-30) mmol/L BUN (7-17) mg/dL Glucose (74-99) mg/dL Calcium (8.4-10.2) mg/dL Albumin (PEP) (3.80-4.90) g/dL Hzoya-4-Jftxqgemd (0.10-0.40) g/dL Mmvlc-0-Eeyujzxdf (0.60-1.00) g/dL Parvovirus B19 IgG Ab (<=0.90) INDEX Crossmatch See Detail Microbiology - Last 24 Hours (Table) 11/23/19 11:49 Blood Culture - Preliminary Blood No Growth after 120 hours 11/27/19 12:00 Gram Stain - Preliminary Bronchoalviolar Lavage - Right Bronchial Washings Culture - Preliminary 11/27/19 12:00 Acid Fast Bacilli Culture - Preliminary Bronchoalviolar Lavage - Right 11/27/19 12:00 Fungal Culture - Preliminary Bronchoalviolar Lavage - Right Assessment and Plan (1) Pancytopenia Narrative/Plan: Transfuse to keep hemoglobin 7 or higher-hemoglobin 6.7, transfusion today. Transfuse to keep platelets greater than 10,000 unless patient is showing signs or symptoms of bleeding. Platelets 17,000 today, no transfusion. G-CSF has been started-continue CBC daily Labs reviewed, no evidence at this time to suggest hemolysis or DIC Current Visit: Yes Status: Acute Priority: High Code(s): D61.818 - OTHER PANCYTOPENIA SNOMED Code(s): 267660561 (2) Ovarian cancer Narrative/Plan: on maintenance Rubraca, hold for now Current Visit: No Status: Chronic Priority: Low Code(s): C56.9 - MALIGNANT NEOPLASM OF UNSPECIFIED OVARY SNOMED Code(s): 912230179 (3) Breast cancer Narrative/Plan: History of, no current treatment. Current Visit: No Status: Chronic Priority: Low Code(s): C50.919 - MALIGNANT NEOPLASM OF UNSP SITE OF UNSPECIFIED FEMALE BREAST SNOMED Code(s): 554934085 Plan: In regards to patient's malignancy history, I did speak with her primary oncologist Dr. Vaughn last week. Pt most recent scans showed no evidence of disease, pt has no known disease in her lungs. She was changed from Lynparza to Rubraca due to insurance issues-maintenance therapy. Will update Dr. Vaughn in the next day or so. Based on presentation, concern is for an atypical respiratory infection. Bronchoscopy and specimen collection done to evaluate for an atypical infection. Pending path and cultures. Antibiotics per ID Cont steroids initiated for concern of drug induced pneumonitis Close follow up
[2019-11-28 15:12] LABS: Anisocytosis Slight; HCT 24.4 % (34.0-46.0); HGB 8.2 gm/dL (11.4-16.0); MCH 32.3 pg (25.0-35.0); MCHC 33.6 g/dL (31.0-37.0); MCV 96.3 fL (80.0-100.0); Macrocytosis Slight; Poikilocytosis Slight; RBC 2.53 m/uL (3.80-5.40); RDW 17.8 % (11.5-15.5)
[2019-11-28 15:16] LABS: WBC 0.6 k/uL (3.8-10.6)
[2019-11-28 15:17] LABS: Platelet Count 18 k/uL (150-450)
[2019-11-28] MEDS: MEROPENEM 1 GM in SODIUM CHLORIDE 0.9% 100 ML IVPB SCH ×2 (16:07→23:38)
[2019-11-28] MEDS ORDERED: FUROSEMIDE 10 MG/ML 10 ML VIAL IV STA (17:15)
[2019-11-28] MEDS: LEVOFLOXACIN 500 MG TAB PO SCH (20:26)
[2019-11-28] MEDS ORDERED: QUEtiapine 50 MG TAB PO SCH (21:00)
--- NOTE | 2019-11-28 22:19 | PN ---
PROGRESS NOTE DATE OF SERVICE: 11/28/2019 REASON FOR FOLLOWUP: Pneumonia. INTERVAL HISTORY: The patient did go into respiratory distress, had to be intubated. He has been followed this morning. The patient is hemodynamically stable, not requiring pressor support. No vomiting or diarrhea has been reported by nursing staff. On examination, blood pressure is 112/50 with a pulse of 88, temperature 98.4. He is 90% on mechanical ventilator. FiO2 is currently at 100%. General description is a middle-aged female intubated on the vent. Respiratory system: Unlabored breathing. Decreased breath sounds at the bases. Heart: S1, S2. Regular rate and rhythm. Abdomen soft, no tenderness. LABS: Hemoglobin 8.1, white count of 0.6, creatinine 0.62. Bronch cultures are currently pending. DIAGNOSTIC IMPRESSION AND PLAN: Patient with acute respiratory failure, likely component of pneumonia. Patient now with worsening of her clinical condition and has been intubated ( ) antibiotic was switched to meropenem 1 gm q12 hours. Continue adjusting antibiotic further per the culture report. Family at the bedside, questions were answered. MMODL / IJN: [id number] /
[2019-11-29] MEDS: PROPOFOL 1,000 MG in EMPTY BAG 1 BAG IV SCH ×7 (01:22→20:53)
--- NOTE | 2019-11-29 03:16 | XR ---
EXAMINATION TYPE: XR chest 1V portable DATE OF EXAM: 11/29/2019 COMPARISON: Yesterday HISTORY: Hypoxemia TECHNIQUE: Single view FINDINGS: Endotracheal tube is 6 cm from the shanta. There is left central venous catheter with the t ip in the right atrium. There is nasogastric tube in the stomach. There is moderate pulmonary airspac e edema. There are chest leads. IMPRESSION: Pulmonary edema the same or slightly improved compared to yesterday.
[2019-11-29] MEDS: IPRATROPIUM-ALBUTEROL 3 ML NEB INHALATION SCH ×6 (03:19→23:50)
[2019-11-29] MEDS ORDERED: CISATRACURIUM 2 MG/ML 5 ML VIAL IV ONE (03:23)
[2019-11-29] MEDS ORDERED: CISATRACURIUM 200 MG in SODIUM CHLORIDE 0.9% 180 ML IV SCH (03:30)
[2019-11-29] MEDS: fentaNYL (PF) 1,000 MCG in SODIUM CHLORIDE 0.9% 80 ML IV SCH ×3 (03:46→22:07)
[2019-11-29 04:08] LABS: ABG Base Excess 7.5 mmol/L; ABG HCO3 33 mmol/L (21-25); ABG Oxygen Saturation 95.5 % (94-97); ABG PCO2 61 mmHg (35-45); ABG PH 7.35 (7.35-7.45); ABG PO2 83 mmHg (83-108); ABG TCO2 35 mmol/L (19-24); Allen Test Performed? Yes
[2019-11-29] MEDS: VANCOMYCIN 1,750 MG in SODIUM CHLORIDE 0.9% 500 ML 500 ML IVPB SCH ×2 (04:24→16:09)
[2019-11-29 04:26] LABS: Anisocytosis Slight; HCT 25.8 % (34.0-46.0); HGB 8.5 gm/dL (11.4-16.0); MCH 31.9 pg (25.0-35.0); MCHC 32.9 g/dL (31.0-37.0); MCV 96.8 fL (80.0-100.0); Macrocytosis Slight; Mean Platelet Volume 9.6; Poikilocytosis Slight; RBC 2.66 m/uL (3.80-5.40); RDW 17.6 % (11.5-15.5)
[2019-11-29 04:32] LABS: Platelet Count 14 k/uL (150-450); WBC 0.7 k/uL (3.8-10.6)
[2019-11-29 05:09] LABS: African American GFR (CKD) >90 (>60 ml/min/1.73 sqM); Anion Gap 6 mmol/L; Blood Urea Nitrogen 29 mg/dL (7-17); Calcium 7.9 mg/dL (8.4-10.2); Carbon Dioxide 33 mmol/L (22-30); Chloride 105 mmol/L (98-107); Glucose 172 mg/dL (74-99); Non-African American GFR(CKD) >90 (>60 ml/min/1.73 sqM); Potassium 3.8 mmol/L (3.5-5.1); Sodium 144 mmol/L (137-145)
[2019-11-29] MEDS: ARTIFICIAL TEARS-HYPROMELLOSE DROPS 15 ML BTL BOTH EYES SCH ×6 (05:43→22:52)
[2019-11-29] MEDS: MORPHINE SULFATE 2 MG/ML SYRINGE IV SCH ×3 (05:43→07:05)
[2019-11-29] MEDS ORDERED: POTASSIUM BICARBONATE/CIT AC 20 MEQ TABLET.EFF NG-TUBE SCH (07:00)
[2019-11-29] MEDS: NOREPINEPHRINE 4 MG in SODIUM CHLORIDE 0.9% 250 ML IV SCH ×2 (07:43→20:16)
[2019-11-29] MEDS: BUDESONIDE 1 MG/2 ML NEBU INHALATION SCH ×2 (08:01→19:55)
[2019-11-29] MEDS: FORMOTEROL FUMARATE 20 MCG/2 ML NEBU INHALATION SCH ×2 (08:01→19:55)
--- NOTE | 2019-11-29 08:09 | P.PN ---
Subjective Progress Note Date: 11/29/19 Principal diagnosis: Acute hypoxic respiratory failure This is a 53-year-old female patient who was admitted to the hospital with acute hypoxic respiratory failure. The patient does have history of cancer and she is status post bilateral radical mastectomy. She was pancytopenic. The patient was seen today, November 292019. She continues to be intubated on mechanical ventilation. The blood pressure continues to be marginally low but she is off any vasopressors. She is slightly tachycardic and she is on atenolol. She has been maintaining normal sinus mechanism. The chest x-ray today showed slight improvement compared to the chest x-ray yesterday. She was given Lasix yesterday. Sputum culture is in process. She continues to be pancytopenic but the hemoglobin improved after one unit of packed RBC yesterday. Objective - Vital Signs Vital signs: Vital Signs Temp 98.3 F 11/29/19 04:00 Pulse 116 H 11/29/19 08:06 Resp 22 11/29/19 07:00 BP 97/53 11/29/19 07:00 Pulse Ox 90 L 11/29/19 07:00 Intake & Output 11/28/19 11/29/19 11/29/19 18:59 06:59 18:59 Intake Total 3772.111 1163.302 99.879 Output Total 1540 3650 Balance 2232.111 -2486.698 99.879 Weight 101.4 kg 104 kg Intake: IV 2270 760 Aztreonam 2 gm In Sodium 100 Chloride 0.9% 100 ml @ 100 mls/hr IVPB Q8HR [facility] Rx#:[id number] Lactated Ringers 1,000 ml 1670 260 @ 20 mls/hr IV .Q24H [facility] Rx#:[id number] Vancomycin 1,750 mg In 500 500 Sodium Chloride 0.9% 500 ml 500 ml @ 167 mls/hr IVPB Q10H [facility] Rx#: [id number] Intake, IV Titration 702.111 363.302 99.879 Amount Meropenem 1 gm In Sodium 200 Chloride 0.9% 100 ml @ 200 mls/hr IVPB Q8HR [facility] Rx#:[id number] Propofol 1,000 mg In 372.483 269.338 99.879 Empty Bag 1 bag @ Titrate IV .Q0M [facility] Rx#: [id number] fentaNYL (PF) 1,000 mcg 129.628 93.964 In Sodium Chloride 0.9% 80 ml @ 1 MCG/KG/HR 10.14 mls/hr IV .Q9H52M [facility] Rx #:[id number] Tube Feeding 80 40 Blood Product 620 Rc Pheresis 2 As3 Unit 310 [id number] Rc Pheresis As-3 Unit 310 [id number] Other 100 Output: Urine 1540 3650 Other: Voiding Method Indwelling Catheter Indwelling Catheter ABP, PAP, CO, CI - Last Documented Arterial Blood Pressure 135/61 - Constitutional General appearance: Present: no acute distress - Respiratory Respiratory: bilateral: diminished - Cardiovascular Rhythm: regular Heart sounds: normal: S1, S2 - Labs CBC & Chem 7: 11/29/19 04:05 11/29/19 04:05 Labs: Abnormal Lab Results - Last 24 Hours (Table) 11/23/19 11/23/19 11/23/19 Range/Units 11:49 11:55 20:25 WBC (3.8-10.6) k/uL RBC (3.80-5.40) m/uL Hgb (11.4-16.0) gm/dL Hct (34.0-46.0) % RDW (11.5-15.5) % Plt Count (150-450) k/uL ABG pCO2 (35-45) mmHg ABG HCO3 (21-25) mmol/L ABG Total CO2 (19-24) mmol/L Carbon Dioxide (22-30) mmol/L BUN (7-17) mg/dL Glucose (74-99) mg/dL Calcium (8.4-10.2) mg/dL Albumin (PEP) (3.80-4.90) g/dL Nexyt-2-Znhqdupic (0.10-0.40) g/dL Azvtn-8-Fcxasspxg (0.60-1.00) g/dL RBC Folate 1,064 H (280 - 791) ng/mL Parvovirus B19 IgG Ab 1.76 H (<=0.90) INDEX Crossmatch See Detail 11/23/19 11/28/19 11/28/19 Range/Units 20:25 06:25 14:45 WBC 0.6 L* (3.8-10.6) k/uL RBC 2.53 L (3.80-5.40) m/uL Hgb 8.2 L D (11.4-16.0) gm/dL Hct 24.4 L (34.0-46.0) % RDW 17.8 H (11.5-15.5) % Plt Count 18 L* (150-450) k/uL ABG pCO2 (35-45) mmHg ABG HCO3 (21-25) mmol/L ABG Total CO2 (19-24) mmol/L Carbon Dioxide (22-30) mmol/L BUN (7-17) mg/dL Glucose (74-99) mg/dL Calcium (8.4-10.2) mg/dL Albumin (PEP) 2.60 L (3.80-4.90) g/dL Euzze-3-Okjucvspe 0.72 H (0.10-0.40) g/dL Bmrhn-8-Gppedbadd 1.19 H (0.60-1.00) g/dL RBC Folate (280 - 791) ng/mL Parvovirus B19 IgG Ab (<=0.90) INDEX Crossmatch See Detail 11/29/19 11/29/19 11/29/19 Range/Units 04:05 04:05 04:05 WBC 0.7 L* (3.8-10.6) k/uL RBC 2.66 L (3.80-5.40) m/uL Hgb 8.5 L (11.4-16.0) gm/dL Hct 25.8 L (34.0-46.0) % RDW 17.6 H (11.5-15.5) % Plt Count 14 L* (150-450) k/uL ABG pCO2 61 H (35-45) mmHg ABG HCO3 33 H (21-25) mmol/L ABG Total CO2 35 H (19-24) mmol/L Carbon Dioxide 33 H (22-30) mmol/L BUN 29 H (7-17) mg/dL Glucose 172 H (74-99) mg/dL Calcium 7.9 L (8.4-10.2) mg/dL Albumin (PEP) (3.80-4.90) g/dL Fuhts-2-Njdqhiwjo (0.10-0.40) g/dL Tdgbs-2-Yqntmczrb (0.60-1.00) g/dL RBC Folate (280 - 791) ng/mL Parvovirus B19 IgG Ab (<=0.90) INDEX Crossmatch Microbiology - Last 24 Hours (Table) 11/27/19 12:00 Acid Fast Bacilli Smear - Final Bronchoalviolar Lavage - Right Acid Fast Bacilli Culture - Preliminary 11/27/19 12:00 Gram Stain - Preliminary Bronchoalviolar Lavage - Right Bronchial Washings Culture - Preliminary 11/23/19 11:49 Blood Culture - Preliminary Blood No Growth after 120 hours Assessment and Plan Assessment: Assessment Acute hypoxic respiratory failure Tachycardia which has improved Fluid overload Pneumonia History of cancer Plan Continue the current medical regimen including antibiotic as well as IV diuretics Continue monitor the blood pressure and support if the systolic pressure below 90 Continue monitor the hemoglobin. Increase the dose of atenolol once a pressure improve if she continues to be tachycardic
[2019-11-29] MEDS: methylPREDNISolone SOD SUCCI 125 MG/2 ML VIAL IV SCH ×3 (08:16→23:47)
[2019-11-29] MEDS: FILGRASTIM-SNDZ 480 MCG/0.8 ML SYRINGE SQ SCH (08:16)
[2019-11-29] MEDS: PANTOPRAZOLE 40 MG/10 ML VIAL IVP SCH ×2 (08:16→20:19)
[2019-11-29] MEDS: FLUCONAZOLE 100 MG TAB PO SCH ×2 (08:17→20:19)
[2019-11-29] MEDS: GABAPENTIN 300 MG CAP PO SCH ×3 (08:17→21:45)
[2019-11-29] MEDS: MEROPENEM 1 GM in SODIUM CHLORIDE 0.9% 100 ML IVPB SCH ×3 (08:17→23:47)
[2019-11-29] MEDS: ATENOLOL 25 MG TAB PO SCH (08:17)
[2019-11-29] MEDS: DULoxetine HCL 30 MG CAPSULE.DR PO SCH (08:17)
[2019-11-29] MEDS: CHLORHEXIDINE GLUCONATE 15 ML CUP MUCOUS MEM SCH ×2 (08:17→20:19)
[2019-11-29] MEDS: busPIRone HCl 10 MG TAB PO SCH ×3 (08:17→21:45)
--- NOTE | 2019-11-29 08:21 | P.PN ---
Subjective Progress Note Date: 11/29/19 The patient is a 53-year-old white female, with a significant past oncologic history. The patient has a history of BRCA positivity, with right-sided breast cancer, as well as ovarian cancer. The patient has had localized recurrence of her ovarian cancer and has been able to be treated successfully with surgery and chemotherapy. Her last surgery was in 2015. She has had no evidence of recurrence since then and is currently on a PARP inhibitor Rucaparib for maintenance. Previously, she was on Olaparib for many months, but was changed to her present regimen due to coverage reasons. She follows closely with Dr. Camejo, in the [facility] system. She had a regular follow-up in 09/29 and at that time was found to have no evidence of recurrence. This patient presented to the hospital because of diffuse bilateral pulmonary infiltrates/upper lobe pneumonia as confirmed by CAT scan which shows that was done on admission. The patient has been on broad-spectrum antibiotics since. The patient also came in with pancytopenia which is thought to be drug induced. The patient has been Zarxio on a daily basis and despite that the counts have been still not recovering. In fact, the morning blood work showed a white cell count of 0.4 with a hemoglobin of 6.7 and the plated count of 17. 2 units of packed RBC has been ordered for this patient. Note that the patient was on high flow oxygen. She felt BiPAP therapy. She said high flow oxygen. She had to be intubated yesterday and placed on a mechanical ventilator for respiratory support. This morning, the patient is sedated with propofol at a dose of 50 g per KG per minute. The patient is post bronchoscopy and the bronchioloalveolar lavage has been done and the cultures still pending for now. The blood gases from this morning showed a pH of 7.43 with a pCO2 of 45 and a pO2 of 62 and this was done on a PEEP of 10 with an FiO2 of 100% and tidal volume of 350 with a rate of 20. The patient is quite tachypneic and she is currently breathing and the low 40s. Her chest x-ray showing diffuse bilateral pulmonary infiltrates. Chest x-ray shows diffuse bilateral airspace disease. ET tube is in a good location. Peak airway pressures around 31 with a static a pressure of 29. No significant orotracheal secretions. The patient is on a broad-spectrum antibiotics and she is covered with a combination of Diflucan 100 mg by mouth twice a day, IV as active I am, IV vancomycin and po the pro-calcitonin was elevated at 3.04 at time of admission. Hemodynamically, the patient is not requiring any pressors. The patient has been on a combination of Cymbalta, Seroquel and BuSpar on outpatient basis. On today's evaluation of 11/29/2019 the patient is being seen in follow-up. Note that the patient has been intubated and currently she remains intubated on a mechanical ventilator. Earlier this morning to have a on assist-control mode at the rate of 20 with a tidal volume of 450 and FiO2 of 100% and PEEP of 15. The blood gases from this morning showed a pH of 7.34 with a pCO2 of 60 and pO2 of 83. Her peak airway pressure was around 37 with a static pressure of 35. Chest x-ray still showing diffuse bilateral pulmonary infiltrates. She is receiving a combination of propofol at 50 mics for sedation and combination with fentanyl 1 g per KG per minute. She is also on them back for assisting synchrony with the mechanical ventilator. No significant orotracheal secretions. Cultures from the bronchoscopy that was done earlier is not showing any microbial growth. I discussed the case with infectious disease. The ani cross is currently on a combination of meropenem and vancomycin in addition to Diflucan and Levaquin and this gives us a broad-spectrum antibiotic coverage in regards to her bilateral pneumonia. The patient remains neutropenic. The white cell count is at 0.7. She still receiving Zarxio on a daily basis. The hemoglobin is at 8.5. The platelet count is at 14. Rest of the electrolytes are all within normal limits per she is on enteral feeding for nutritional support. She is tolerating her diet. Objective - Vital Signs Vital signs: Vital Signs Temp 98.3 F 11/29/19 04:00 Pulse 116 H 11/29/19 08:06 Resp 22 11/29/19 07:00 BP 97/53 11/29/19 07:00 Pulse Ox 90 L 11/29/19 07:00 Intake & Output 11/28/19 11/29/19 11/29/19 18:59 06:59 18:59 Intake Total 3772.111 1163.302 99.879 Output Total 1540 3650 Balance 2232.111 -2486.698 99.879 Weight 101.4 kg 104 kg Intake: IV 2270 760 Aztreonam 2 gm In Sodium 100 Chloride 0.9% 100 ml @ 100 mls/hr IVPB Q8HR [facility] Rx#:[id number] Lactated Ringers 1,000 ml 1670 260 @ 20 mls/hr IV .Q24H [facility] Rx#:[id number] Vancomycin 1,750 mg In 500 500 Sodium Chloride 0.9% 500 ml 500 ml @ 167 mls/hr IVPB Q10H [facility] Rx#: [id number] Intake, IV Titration 702.111 363.302 99.879 Amount Meropenem 1 gm In Sodium 200 Chloride 0.9% 100 ml @ 200 mls/hr IVPB Q8HR [facility] Rx#:[id number] Propofol 1,000 mg In 372.483 269.338 99.879 Empty Bag 1 bag @ Titrate IV .Q0M [facility] Rx#: [id number] fentaNYL (PF) 1,000 mcg 129.628 93.964 In Sodium Chloride 0.9% 80 ml @ 1 MCG/KG/HR 10.14 mls/hr IV .Q9H52M [facility] Rx #:[id number] Tube Feeding 80 40 Blood Product 620 Rc Pheresis 2 As3 Unit 310 [id number] Rc Pheresis As-3 Unit 310 [id number] Other 100 Output: Urine 1540 3650 Other: Voiding Method Indwelling Catheter Indwelling Catheter ABP, PAP, CO, CI - Last Documented Arterial Blood Pressure 135/61 - Exam GENERAL EXAM: The patient is sedated and the patient is calm and comfortable for now, intubated on a mechanical ventilator. The patient has a #8 orotracheal tube. The patient is sedated with propofol. She is also on a combination of fentanyl and Nimbex. EYES: Normal reaction of pupils, equal size. Conjunctiva pink, sclera white. NOSE: Clear with pink turbinates. THROAT: No erythema or exudates. NECK: No masses, no JVD, no thyroid enlargement, no adenopathy. CHEST: No chest wall deformity. Symmetrical expansion. LUNGS: Equal air entry with crackles in the bilateral posterior bases, few scattered rhonchi, diminished. CVS: Regular rate and rhythm, normal S1 and S2, no gallops, no murmurs, no rubs ABDOMEN: Soft, nontender. No hepatosplenomegaly, normal bowel sounds, no guarding or rigidity. EXTREMITIES: No clubbing, no edema, no cyanosis, 2+ pulses and upper and lower extremities. MUSCULOSKELETAL: Unable to assess the muscle tone today. The patient has some increased edema in the upper and lower extremities. SPINE: No scoliosis or deformity SKIN: No rashes CENTRAL NERVOUS SYSTEM: No focal deficits, and the patient has been was sedated with propofol. PSYCHIATRIC: Unable to perform as the patient is currently intubated on a mechanical ventilator. - Labs CBC & Chem 7: 11/29/19 04:05 11/29/19 04:05 Labs: Abnormal Lab Results - Last 24 Hours (Table) 11/23/19 11/23/19 11/23/19 Range/Units 11:49 11:55 20:25 WBC (3.8-10.6) k/uL RBC (3.80-5.40) m/uL Hgb (11.4-16.0) gm/dL Hct (34.0-46.0) % RDW (11.5-15.5) % Plt Count (150-450) k/uL ABG pCO2 (35-45) mmHg ABG HCO3 (21-25) mmol/L ABG Total CO2 (19-24) mmol/L Carbon Dioxide (22-30) mmol/L BUN (7-17) mg/dL Glucose (74-99) mg/dL Calcium (8.4-10.2) mg/dL Albumin (PEP) (3.80-4.90) g/dL Qbkqf-1-Znafxfygn (0.10-0.40) g/dL Anpvd-3-Tbdizpugt (0.60-1.00) g/dL RBC Folate 1,064 H (280 - 791) ng/mL Parvovirus B19 IgG Ab 1.76 H (<=0.90) INDEX Crossmatch See Detail 11/23/19 11/28/19 11/28/19 Range/Units 20:25 06:25 14:45 WBC 0.6 L* (3.8-10.6) k/uL RBC 2.53 L (3.80-5.40) m/uL Hgb 8.2 L D (11.4-16.0) gm/dL Hct 24.4 L (34.0-46.0) % RDW 17.8 H (11.5-15.5) % Plt Count 18 L* (150-450) k/uL ABG pCO2 (35-45) mmHg ABG HCO3 (21-25) mmol/L ABG Total CO2 (19-24) mmol/L Carbon Dioxide (22-30) mmol/L BUN (7-17) mg/dL Glucose (74-99) mg/dL Calcium (8.4-10.2) mg/dL Albumin (PEP) 2.60 L (3.80-4.90) g/dL Apiqg-2-Aywdfirkq 0.72 H (0.10-0.40) g/dL Nopmo-5-Gnwmkygbz 1.19 H (0.60-1.00) g/dL RBC Folate (280 - 791) ng/mL Parvovirus B19 IgG Ab (<=0.90) INDEX Crossmatch See Detail 11/29/19 11/29/19 11/29/19 Range/Units 04:05 04:05 04:05 WBC 0.7 L* (3.8-10.6) k/uL RBC 2.66 L (3.80-5.40) m/uL Hgb 8.5 L (11.4-16.0) gm/dL Hct 25.8 L (34.0-46.0) % RDW 17.6 H (11.5-15.5) % Plt Count 14 L* (150-450) k/uL ABG pCO2 61 H (35-45) mmHg ABG HCO3 33 H (21-25) mmol/L ABG Total CO2 35 H (19-24) mmol/L Carbon Dioxide 33 H (22-30) mmol/L BUN 29 H (7-17) mg/dL Glucose 172 H (74-99) mg/dL Calcium 7.9 L (8.4-10.2) mg/dL Albumin (PEP) (3.80-4.90) g/dL Dkywa-2-Iytuxnivu (0.10-0.40) g/dL Kkbkl-8-Ymyqdvqut (0.60-1.00) g/dL RBC Folate (280 - 791) ng/mL Parvovirus B19 IgG Ab (<=0.90) INDEX Crossmatch Microbiology - Last 24 Hours (Table) 11/27/19 12:00 Acid Fast Bacilli Smear - Final Bronchoalviolar Lavage - Right Acid Fast Bacilli Culture - Preliminary 11/27/19 12:00 Gram Stain - Preliminary Bronchoalviolar Lavage - Right Bronchial Washings Culture - Preliminary 11/23/19 11:49 Blood Culture - Preliminary Blood No Growth after 120 hours Assessment and Plan Plan: 1. Bilateral pneumonia/ARDS with secondary acute hypoxemic respiratory failure in a 53-year-old female patient who presents with pancytopenia, possibly drug induced. The patient had dense upper lobe infiltrate and the patient developed diffuse bilateral pulmonary infiltration with subsequent acute hypoxic respiratory failure, failed BiPAP, failed hypo-oxygen and currently she is intu bated on a mechanical ventilator. She is well sedated for now. Note that the patient underwent a bronchoscopy and the cultures of been all negative. The patient is currently covered with broad-spectrum antibiotics. She is on a combination of meropenem, vancomycin, Levaquin and Diflucan. The [place] is also on IV Solu-Medrol. She is currently sedated and paralyzed. The PEEP is a brought up to 16 with an FiO2 100%. Tidal volume was up to 400 to lower this static airway pressures. Chest x-ray was noted and still showing diffuse bilateral pulmonary infiltrates. 2 pancytopenia, consider drug-induced as the patient was on the Rubraca on an outpatient basis regarding her ovarian cancer 3 Rule out congestive heart failure, the echocardiogram showed a preserved ejection fraction of 6065%. No other valvular abnormalities have been noted. 4 History of ovarian cancer, status post bilateral salpingo-oophorectomy and hysterectomy, with prior multiple chemotherapeutic agents and radiation, currently on Rubraca 5 History of left breast cancer, status post bilateral radical mastectomy 6 Obesity 7 Elevated troponins rule out non-ST elevated myocardial infarction 8 chronic depression maintained on a combination of Cymbalta, BuSpar and Seroquel and outpatient basis Plan Continue vent support. Drop-down the tidal volume to 400s. The PEEP is at 16. FiO2 is at 100%. Repeat blood gases and gradually wean down the FiO2. Awaiting the results of the bronchioloalveolar lavage, cultures are negative for now Antibiotic coverage will be discussed with infectious disease and meropenem Levaquin and vancomycin and Diflucan is a current antibiotic coverage for now We'll discuss with oncology her pancytopenia and continue Zarxio for now Echo is showing a preserved LV function Keep propofol for sedation in combination with fentanyl. The patient was also given an Rx for synchrony over the past 24 hours Enteral feeding for nutritional support Condition is critical. I was able to retrieve an old MRI of the abdomen and pelvis that showed no evidence of any disease progression or recurrence. The patient had some blood work was done outpatient basis which I'm going to retrieve from the primary care physician's office. Condition is critical. We'll continue to follow make further recommendations based on her progress. Critically care evaluation that was done more than 30 minutes. The family was updated on her condition. I talked to versus son and . Time with Patient: Greater than 30
[2019-11-29 09:09] LABS: ABG Base Excess 5.5 mmol/L; ABG HCO3 33 mmol/L (21-25); ABG Oxygen Saturation 90.8 % (94-97); ABG PH 7.21 (7.35-7.45); ABG PO2 72 mmHg (83-108); ABG TCO2 36 mmol/L (19-24)
[2019-11-29 09:21] LABS: ABG PCO2 84 mmHg (35-45); Allen Test Performed? no
[2019-11-29] MEDS: FUROSEMIDE 10 MG/ML 4 ML VIAL IV SCH (09:21)
[2019-11-29] MEDS: LACTATED RINGERS 1,000 ML IV SCH (12:48)
--- NOTE | 2019-11-29 14:05 | P.PN ---
Subjective Progress Note Date: 11/29/19 Principal diagnosis: Follow-up for acute hypoxic respiratory failure secondary to ARDS with underlying pneumonia and pancytopenia Patient seen and examined Patient is deeply sedated and paralyzed on vent support Objective - Vital Signs Vital signs: Vital Signs Temp 99 F 11/29/19 12:00 Pulse 101 H 11/29/19 13:00 Resp 20 11/29/19 13:00 BP 97/53 11/29/19 07:00 Pulse Ox 90 L 11/29/19 13:00 Intake & Output 11/28/19 11/29/19 11/29/19 18:59 06:59 18:59 Intake Total 3772.111 1163.302 801.195 Output Total 1540 3650 1450 Balance 2232.111 -2486.698 -648.805 Weight 101.4 kg 104 kg Intake: IV 2270 760 120 Aztreonam 2 gm In Sodium 100 Chloride 0.9% 100 ml @ 100 mls/hr IVPB Q8HR [facility] Rx#:[id number] Lactated Ringers 1,000 ml 1670 260 120 @ 20 mls/hr IV .Q24H [facility] Rx#:[id number] Vancomycin 1,750 mg In 500 500 Sodium Chloride 0.9% 500 ml 500 ml @ 167 mls/hr IVPB Q10H [facility] Rx#: [id number] Intake, IV Titration 702.111 363.302 431.195 Amount Cisatracurium 200 mg In 36 Sodium Chloride 0.9% 180 ml @ 1 MCG/KG/MIN 6.084 mls/hr IV .Q24H [facility] Rx#: [id number] Meropenem 1 gm In Sodium 200 100 Chloride 0.9% 100 ml @ 200 mls/hr IVPB Q8HR [facility] Rx#:[id number] Propofol 1,000 mg In 372.483 269.338 199.879 Empty Bag 1 bag @ Titrate IV .Q0M [facility] Rx#: [id number] fentaNYL (PF) 1,000 mcg 129.628 93.964 95.316 In Sodium Chloride 0.9% 80 ml @ 1 MCG/KG/HR 10.14 mls/hr IV .Q9H52M [facility] Rx #:[id number] Tube Feeding 80 40 150 Blood Product 620 Rc Pheresis 2 As3 Unit 310 [id number] Rc Pheresis As-3 Unit 310 [id number] Other 100 100 Output: Urine 1540 3650 1450 Other: Voiding Method Indwelling Catheter Indwelling Catheter Indwelling Catheter ABP, PAP, CO, CI - Last Documented Arterial Blood Pressure 135/61 - Exam Constitutional: vital signs stable, patient deeply sedated on vent support Lungs: good breath sounds bilaterally , scattered rhonchi Cardiovascular: Regular rate and rhythm, no murmurs, no gallops, no rubs, no peripheral edema Gastrointestinal: Soft, no tenderness to palpation, bowel sounds positive Extremities: No digital cyanosis or clubbing, peripheral pulses palpable and equal , no calf muscle tenderness Psych: Patient is deeply sedated Tom catheter in place, urine color unremarkable - Labs CBC & Chem 7: 11/29/19 04:05 11/29/19 04:05 Labs: Abnormal Lab Results - Last 24 Hours (Table) 11/23/19 11/28/19 11/29/19 Range/Units 20:25 14:45 04:05 WBC 0.6 L* 0.7 L* (3.8-10.6) k/uL RBC 2.53 L 2.66 L (3.80-5.40) m/uL Hgb 8.2 L D 8.5 L (11.4-16.0) gm/dL Hct 24.4 L 25.8 L (34.0-46.0) % RDW 17.8 H 17.6 H (11.5-15.5) % Plt Count 18 L* 14 L* (150-450) k/uL ABG pH (7.35-7.45) ABG pCO2 (35-45) mmHg ABG pO2 (83-108) mmHg ABG HCO3 (21-25) mmol/L ABG Total CO2 (19-24) mmol/L ABG O2 Saturation (94-97) % Carbon Dioxide (22-30) mmol/L BUN (7-17) mg/dL Glucose (74-99) mg/dL Calcium (8.4-10.2) mg/dL RBC Folate 1,064 H (280 - 791) ng/mL 11/29/19 11/29/19 11/29/19 Range/Units 04:05 04:05 09:05 WBC (3.8-10.6) k/uL RBC (3.80-5.40) m/uL Hgb (11.4-16.0) gm/dL Hct (34.0-46.0) % RDW (11.5-15.5) % Plt Count (150-450) k/uL ABG pH 7.21 L (7.35-7.45) ABG pCO2 61 H 84 H* (35-45) mmHg ABG pO2 72 L (83-108) mmHg ABG HCO3 33 H 33 H (21-25) mmol/L ABG Total CO2 35 H 36 H (19-24) mmol/L ABG O2 Saturation 90.8 L (94-97) % Carbon Dioxide 33 H (22-30) mmol/L BUN 29 H (7-17) mg/dL Glucose 172 H (74-99) mg/dL Calcium 7.9 L (8.4-10.2) mg/dL RBC Folate (280 - 791) ng/mL Microbiology - Last 24 Hours (Table) 11/27/19 12:00 Gram Stain - Final Bronchoalviolar Lavage - Right Bronchial Washings Culture - Final 11/27/19 12:00 Acid Fast Bacilli Smear - Final Bronchoalviolar Lavage - Right Acid Fast Bacilli Culture - Preliminary 11/23/19 11:49 Blood Culture - Preliminary Blood No Growth after 120 hours Assessment and Plan Assessment: The patient is a 53-year-old female with a PMH of BRCA1 and BRCA2 positive breast and ovarian cancers, initially diagnosed 2003 with multiple relapses, last relapse in 2016, currently on Rubraca for maintenance presented to the ED for gradually worsening shortness of breath, decreased exercise tolerance, and a pale complexion. The patient reported that her symptoms started after she returned from a trip to [facility] at the end of September. She reported that in early October she had developed a cold, after which she slowly developed her symptoms. Patient reported that she has a history of hemorrhoids and regularly bleeds with bright red blood upon wiping and in the toilet bowl, though notes that the bleeding did stop roughly 2-3 weeks ago. The patient underwent an extensive evaluation in the emergency room. Upon presentation, her vital signs were P 124, BP 125/62, 85% on 3L NC, T 99.3. Laboratory evaluation revealed WBC count 1.3, hemoglobin 5.2, platelets 60, lactic acid 7.5, troponin 0.049, BUN 23, creatinine 1.15, BNP 6530, FOBT negative, and negative acetone. Chest x-ray revealed diffuse interstitial and alveolar pattern with multifocal areas of consolidation. Chest CTA showing [place] areas of consolidation with ground-glass changes involving the upper lobes, possibly pulmonary edema. She was given azithromycin, and 2 units of PRBCs were ordered and the patient was admitted to the medical ICU for further management. The patient was initially placed on BiPAP. She was switched to Levaquin and was given multiple doses of IV lasix for fluid overload. Hematology was consulted and recommended that the patient may have pneumonitis either due to a drug reaction or viral in nature vs an atypical infection. She was started on IV Steroids. She was also started on G-CSF and had received a total of 3 U of pRBCs. The patient also expressed suicidal ideation for which psychiatry was consulted and recommended one-to-one sitter and resuming her anti-depressants f rom home. The patient was titrated off BiPAP and was started on high flow nasal cannula. Infectious disease was consulted and the patient was started on aztreonam, Diflucan, and vancomycin. 11/27. The patient notes that her breathing is worsened today. Her oxygen requirements have gradually increased over the past 48 hours. She is denying fever, chills, abdominal pain, nausea, or vomiting. 11/28 patient is intubated on mechanical ventilation , CXR showing progression of disease with picture suggestive of ARDS. patient continues on aggressive supportive measures. await bronchial wash cultures. 11/29 ARDS BAL continues to be negative CXR diffuse infilterates continue on empiric ABx meropenem, diflucan, levequin, vanco steroids for possible drug induced pneumonitis permissive hypercapnia for ARDS managed per pulmonary supportive care patient continues to be critical requiring aggressive supportive measures follow up cultures hemoglobin improved post blood transfusion , platelet transufison as needed Plan: acute hypoxemic respiratory failure , with underlying acute respiratory distress syndrome suspected underlying pneumonia drug induced vs infectious Sepsis secondary to pneumonia Vent dependant respiratory failure secondary to above Pancytopenia thought to be drug induced secondary to Rubraca plan aggressive supportive measures, management in the ICU currently on a combination of Levaquin, meropenem, vancomycin and Diflucan. Influenza screen was negative. Bronchoscopy and lavage was done and results are still negative for now. Echo cardiogram showed LVEF 60-65% elevated procalcitonin CXR progressive disease and infilterates, ARDS blood transfusion for Hgb less than 7 vent management per pulmonary antibiotics per ID recs, await cultures and BAL enteral feeding continue with sedation follow up hgb closely , cbc and CMP, replace electrolytes as needed chronic conditions history of breast and ovarian cancer status post bilateral salpingo-oophorectomy and hysterectomy, with prior multiple chemotherapeutic agents and radiation, currently on Rubraca suicidal ideation with chronic depression maintained on a combination of C ymbalta, BuSpar and Seroquel DVT prophylaxis -IPCDs overall condition is critical
--- NOTE | 2019-11-29 17:16 | P.PN ---
Subjective Progress Note Date: 11/29/19 Principal diagnosis: difficulty in breathing In follow-up today patient is sedated and mechanically ventilated. She does not appear to be in any distress Objective - Vital Signs Vital signs: Vital Signs Temp 99.8 F H 11/29/19 16:00 Pulse 85 11/29/19 16:00 Resp 24 11/29/19 16:00 BP 97/53 11/29/19 07:00 Pulse Ox 91 L 11/29/19 16:00 Intake & Output 11/28/19 11/29/19 11/29/19 18:59 06:59 18:59 Intake Total 3772.111 5581.713 2523.902 Output Total 1540 3650 1785 Balance 2232.111 -2486.698 -42.098 Weight 101.4 kg 104 kg Intake: IV 2270 760 680 Aztreonam 2 gm In Sodium 100 Chloride 0.9% 100 ml @ 100 mls/hr IVPB Q8HR [facility] Rx#:[id number] Lactated Ringers 1,000 ml 1670 260 180 @ 20 mls/hr IV .Q24H [facility] Rx#:[id number] Vancomycin 1,750 mg In 500 500 500 Sodium Chloride 0.9% 500 ml 500 ml @ 167 mls/hr IVPB Q10H [facility] Rx#: [id number] Intake, IV Titration 702.111 363.302 702.902 Amount Cisatracurium 200 mg In 107.707 Sodium Chloride 0.9% 180 ml @ 1 MCG/KG/MIN 6.084 mls/hr IV .Q24H [facility] Rx#: [id number] Meropenem 1 gm In Sodium 200 200 Chloride 0.9% 100 ml @ 200 mls/hr IVPB Q8HR [facility] Rx#:[id number] Propofol 1,000 mg In 372.483 269.338 299.879 Empty Bag 1 bag @ Titrate IV .Q0M [facility] Rx#: [id number] fentaNYL (PF) 1,000 mcg 129.628 93.964 95.316 In Sodium Chloride 0.9% 80 ml @ 1 MCG/KG/HR 10.14 mls/hr IV .Q9H52M [facility] Rx #:[id number] Tube Feeding 80 40 230 Blood Product 620 Rc Pheresis 2 As3 Unit 310 [id number] Rc Pheresis As-3 Unit 310 [id number] Other 100 130 Output: Urine 1540 9020 1785 Other: Voiding Method Indwelling Catheter Indwelling Catheter Indwelling Catheter ABP, PAP, CO, CI - Last Documented Arterial Blood Pressure 99/48 - Constitutional General appearance: Present: no acute distress, obese - Respiratory Respiratory: bilateral: diminished - Cardiovascular Heart sounds: normal: S1, S2 - Peripheral edema leg Peripheral Edema: bilateral: Trace - Gastrointestinal General gastrointestinal: Present: normal bowel sounds, soft - Psychiatric Psychiatric: Absent: A&O x's 3, appropriate affect, intact judgment & insight - Labs CBC & Chem 7: 11/29/19 04:05 11/29/19 04:05 Labs: Abnormal Lab Results - Last 24 Hours (Table) 11/29/19 11/29/19 11/29/19 Range/Units 04:05 04:05 04:05 WBC 0.7 L* (3.8-10.6) k/uL RBC 2.66 L (3.80-5.40) m/uL Hgb 8.5 L (11.4-16.0) gm/dL Hct 25.8 L (34.0-46.0) % RDW 17.6 H (11.5-15.5) % Plt Count 14 L* (150-450) k/uL ABG pH (7.35-7.45) ABG pCO2 61 H (35-45) mmHg ABG pO2 (83-108) mmHg ABG HCO3 33 H (21-25) mmol/L ABG Total CO2 35 H (19-24) mmol/L ABG O2 Saturation (94-97) % Carbon Dioxide 33 H (22-30) mmol/L BUN 29 H (7-17) mg/dL Glucose 172 H (74-99) mg/dL Calcium 7.9 L (8.4-10.2) mg/dL 11/29/19 Range/Units 09:05 WBC (3.8-10.6) k/uL RBC (3.80-5.40) m/uL Hgb (11.4-16.0) gm/dL Hct (34.0-46.0) % RDW (11.5-15.5) % Plt Count (150-450) k/uL ABG pH 7.21 L (7.35-7.45) ABG pCO2 84 H* (35-45) mmHg ABG pO2 72 L (83-108) mmHg ABG HCO3 33 H (21-25) mmol/L ABG Total CO2 36 H (19-24) mmol/L ABG O2 Saturation 90.8 L (94-97) % Carbon Dioxide (22-30) mmol/L BUN (7-17) mg/dL Glucose (74-99) mg/dL Calcium (8.4-10.2) mg/dL Microbiology - Last 24 Hours (Table) 11/23/19 11:49 Blood Culture - Final Blood No Growth after 144 hours 11/27/19 12:00 Gram Stain - Final Bronchoalviolar Lavage - Right Bronchial Washings Culture - Final 11/27/19 12:00 Acid Fast Bacilli Smear - Final Bronchoalviolar Lavage - Right Acid Fast Bacilli Culture - Preliminary - Imaging and Cardiology Chest x-ray: report reviewed Assessment and Plan (1) Pancytopenia Narrative/Plan: Transfuse to keep hemoglobin 7 or higher-hemoglobin 8,.5, no transfusion today. Transfuse to keep platelets greater than 10,000 unless patient is showing signs or symptoms of bleeding. Platelets 14,000 today, no transfusion. G-CSF has been started-continue CBC daily Labs reviewed, no evidence at this time to suggest hemolysis or DIC Current Visit: Yes Status: Acute Priority: High Code(s): D61.818 - OTHER PANCYTOPENIA SNOMED Code(s): 911600010 (2) Ovarian cancer Narrative/Plan: Treated with maintenance Rubraca, hold for now. No evidence of malignant process at this time. Current Visit: No Status: Chronic Priority: Low Code(s): C56.9 - MALIGNANT NEOPLASM OF UNSPECIFIED OVARY SNOMED Code(s): 195946488 (3) Breast cancer Narrative/Plan: History of, no current treatment. Current Visit: No Status: Chronic Priority: Low Code(s): C50.919 - MALIGNANT NEOPLASM OF UNSP SITE OF UNSPECIFIED FEMALE BREAST SNOMED Code(s): 962051139 Plan: In regards to patient's malignancy history, Rubraca most recent treatment, maintenance therapy. Bronchoscopy and specimen are negative for infection, path negative. ARDS is condition being suggested. Not clear what provoking factor was. Cont mechanical ventilation per Critical Care team. Antibiotics per ID Cont steroids initiated for concern of drug induced pneumonitis Close follow up
[2019-11-29] MEDS: LEVOFLOXACIN 500 MG TAB PO SCH (20:19)
[2019-11-29 20:54] LABS: ABG Base Excess 10.3 mmol/L; ABG HCO3 36 mmol/L (21-25); ABG Oxygen Saturation 89.7 % (94-97); ABG PCO2 66 mmHg (35-45); ABG PH 7.35 (7.35-7.45); ABG TCO2 38 mmol/L (19-24); Allen Test Performed? Yes
[2019-11-29] MEDS ORDERED: ACETAMINOPHEN IV (For NPO) 1,000 MG in EMPTY BAG 1 BAG IVPB STA (22:29)
[2019-11-29 22:37] LABS: ABG Base Excess 9.7 mmol/L; ABG HCO3 36 mmol/L (21-25); ABG Oxygen Saturation 89.8 % (94-97); ABG PCO2 68 mmHg (35-45); ABG PH 7.33 (7.35-7.45); ABG TCO2 38 mmol/L (19-24); Allen Test Performed? Yes
[2019-11-29 22:39] LABS: ABG PO2 58 mmHg (83-108)
--- NOTE | 2019-11-29 22:46 | XR ---
EXAMINATION TYPE: XR chest 1V portable DATE OF EXAM: 11/29/2019 COMPARISON: Today HISTORY: Hypoxemia TECHNIQUE: FINDINGS: Endotracheal tube is 7 cm from the shanta. There are lower lobe bilateral pulmonary airspac e infiltrates and consolidation. There is pulmonary airspace edema. There is nasogastric tube. There are chest leads. There is left-sided central venous catheter with the tip in the superior vena cava. No pneumothorax. IMPRESSION: Bilateral pulmonary infiltrates and pulmonary edema appear worse than exam this morning.
[2019-11-30] MEDS: PROPOFOL 1,000 MG in EMPTY BAG 1 BAG IV SCH ×6 (00:11→09:50)
[2019-11-30] MEDS: ARTIFICIAL TEARS-HYPROMELLOSE DROPS 15 ML BTL BOTH EYES SCH (01:34)
[2019-11-30] MEDS ORDERED: VANCOMYCIN TROUGH DUE 1 EACH MISC MISCELLANE ONE (03:00)
[2019-11-30] MEDS: IPRATROPIUM-ALBUTEROL 3 ML NEB INHALATION SCH ×2 (03:18→07:26)
[2019-11-30] MEDS: VANCOMYCIN 1,750 MG in SODIUM CHLORIDE 0.9% 500 ML 500 ML IVPB SCH (04:16)
[2019-11-30 05:26] LABS: Anisocytosis Slight; HGB 8.2 gm/dL (11.4-16.0); Hypochromasia Slight; MCHC 32.9 g/dL (31.0-37.0); MCV 100.6 fL (80.0-100.0); Macrocytosis Slight; Mean Platelet Volume 9.2; RBC 2.48 m/uL (3.80-5.40); RDW 16.8 % (11.5-15.5)
[2019-11-30 05:30] LABS: ABG Base Excess 9.2 mmol/L; ABG HCO3 36 mmol/L (21-25); ABG Oxygen Saturation 89.9 % (94-97); ABG PH 7.28 (7.35-7.45); ABG PO2 61 mmHg (83-108); ABG TCO2 38 mmol/L (19-24); Allen Test Performed? Yes
[2019-11-30 05:33] LABS: ABG PCO2 77 mmHg (35-45)
[2019-11-30 06:05] LABS: Glucose,Whole Blood 216 mg/dL (75-99)
[2019-11-30 06:07] LABS: Platelet Count 7 k/uL (150-450); Poikilocytosis (M) Present; WBC 0.9 k/uL (3.8-10.6)
[2019-11-30 06:35] LABS: Albumin 2.4 g/dL (3.5-5.0); Calcium 8.1 mg/dL (8.4-10.2); Potassium 4.9 mmol/L (3.5-5.1); Total Protein 5.1 g/dL (6.3-8.2)
[2019-11-30 06:36] LABS: Glucose,Whole Blood 225 mg/dL (75-99)
[2019-11-30 07:24] LABS: ABG PO2 57 mmHg (83-108)
[2019-11-30] MEDS: BUDESONIDE 1 MG/2 ML NEBU INHALATION SCH (07:26)
[2019-11-30] MEDS: FORMOTEROL FUMARATE 20 MCG/2 ML NEBU INHALATION SCH (07:26)
[2019-11-30] MEDS ORDERED: INSULIN ASPART (NovoLOG) 100 UNIT/ML VIAL SQ SCH (07:30)
--- NOTE | 2019-11-30 07:34 | P.PN ---
Subjective Progress Note Date: 11/30/19 Principal diagnosis: Acute hypoxic respiratory failure This is a 53-year-old female patient who was admitted to the hospital with acute hypoxic respiratory failure. The patient does have history of cancer and she is status post bilateral radical mastectomy. She was pancytopenic. The patient was seen today, November 302019. She continues to be intubated on mechanical ventilation. She continues to be hemodynamically stable. The urine output is good. Unfortunately she is pancytopenic with a very low platelet count and she is in process of receiving platelets. The chest x-ray today continues to be worse than yesterday. The hemoglobin is above 8. The plan is for possible transfer. Objective - Vital Signs Vital signs: Vital Signs Temp 99.9 F H 11/30/19 04:00 Pulse 103 H 11/30/19 07:00 Resp 12 11/30/19 07:00 BP 97/53 11/30/19 07:00 Pulse Ox 88 L 11/30/19 07:00 Intake & Output 11/29/19 11/30/19 11/30/19 18:59 06:59 18:59 Intake Total 3609.497 4823.007 40 Output Total 1910 1635 120 Balance 38.725 449.007 -80 Weight 107 kg Intake: IV 720 740 20 Lactated Ringers 1,000 ml 220 240 20 @ 20 mls/hr IV .Q24H [facility] Rx#:[id number] Vancomycin 1,750 mg In 500 500 Sodium Chloride 0.9% 500 ml 500 ml @ 167 mls/hr IVPB Q10H [facility] Rx#: [id number] Intake, IV Titration 798.725 954.007 Amount ACETAMINOPHEN IV (For NPO 400 ) 1,000 mg In Empty Bag 1 bag @ 400 mls/hr IVPB ONCE [facility] Rx#:[id number] Cisatracurium 200 mg In 107.707 Sodium Chloride 0.9% 180 ml @ 1 MCG/KG/MIN 6.084 mls/hr IV .Q24H [facility] Rx#: [id number] Meropenem 1 gm In Sodium 200 100 Chloride 0.9% 100 ml @ 200 mls/hr IVPB Q8HR [facility] Rx#:[id number] Propofol 1,000 mg In 395.702 363.254 Empty Bag 1 bag @ Titrate IV .Q0M [facility] Rx#: [id number] fentaNYL (PF) 1,000 mcg 95.316 90.753 In Sodium Chloride 0.9% 80 ml @ 1 MCG/KG/HR 10.14 mls/hr IV .Q9H52M [facility] Rx #:[id number] Tube Feeding 270 300 20 Other 160 90 Output: Urine 1910 1635 120 Other: Voiding Method Indwelling Catheter Indwelling Catheter ABP, PAP, CO, CI - Last Documented Arterial Blood Pressure 120/53 - Constitutional General appearance: Present: no acute distress - Respiratory Respiratory: bilateral: diminished - Cardiovascular Rhythm: regular Heart sounds: normal: S1, S2 - Labs CBC & Chem 7: 11/30/19 05:03 11/30/19 05:03 Labs: Abnormal Lab Results - Last 24 Hours (Table) 11/29/19 11/29/19 11/29/19 Range/Units 09:05 20:52 22:35 WBC (3.8-10.6) k/uL RBC (3.80-5.40) m/uL Hgb (11.4-16.0) gm/dL Hct (34.0-46.0) % MCV (80.0-100.0) fL RDW (11.5-15.5) % Plt Count (150-450) k/uL ABG pH 7.21 L 7.33 L (7.35-7.45) ABG pCO2 84 H* 66 H 68 H (35-45) mmHg ABG pO2 72 L 57 L* 58 L* (83-108) mmHg ABG HCO3 33 H 36 H 36 H (21-25) mmol/L ABG Total CO2 36 H 38 H 38 H (19-24) mmol/L ABG O2 Saturation 90.8 L 89.7 L 89.8 L (94-97) % Sodium (137-145) mmol/L Chloride (98-107) mmol/L Carbon Dioxide (22-30) mmol/L BUN (7-17) mg/dL Glucose (74-99) mg/dL POC Glucose (mg/dL) (75-99) mg/dL Calcium (8.4-10.2) mg/dL Total Protein (6.3-8.2) g/dL Albumin (3.5-5.0) g/dL 11/30/19 11/30/1920 Range/Units 05:03 05:03 05:28 WBC 0.9 L* (3.8-10.6) k/uL RBC 2.48 L (3.80-5.40) m/uL Hgb 8.2 L (11.4-16.0) gm/dL Hct 25.0 L (34.0-46.0) % MCV 100.6 H (80.0-100.0) fL RDW 16.8 H (11.5-15.5) % Plt Count 7 L* (150-450) k/uL ABG pH 7.28 L (7.35-7.45) ABG pCO2 77 H* (35-45) mmHg ABG pO2 61 L (83-108) mmHg ABG HCO3 36 H (21-25) mmol/L ABG Total CO2 38 H (19-24) mmol/L ABG O2 Saturation 89.9 L (94-97) % Sodium 149 H (137-145) mmol/L Chloride 110 H (98-107) mmol/L Carbon Dioxide 35 H (22-30) mmol/L BUN 38 H (7-17) mg/dL Glucose 204 H (74-99) mg/dL POC Glucose (mg/dL) (75-99) mg/dL Calcium 8.1 L (8.4-10.2) mg/dL Total Protein 5.1 L (6.3-8.2) g/dL Albumin 2.4 L (3.5-5.0) g/dL 11/30/19 11/30/19 Range/Units 06:03 06:34 WBC (3.8-10.6) k/uL RBC (3.80-5.40) m/uL Hgb (11.4-16.0) gm/dL Hct (34.0-46.0) % MCV (80.0-100.0) fL RDW (11.5-15.5) % Plt Count (150-450) k/uL ABG pH (7.35-7.45) ABG pCO2 (35-45) mmHg ABG pO2 (83-108) mmHg ABG HCO3 (21-25) mmol/L ABG Total CO2 (19-24) mmol/L ABG O2 Saturation (94-97) % Sodium (137-145) mmol/L Chloride (98-107) mmol/L Carbon Dioxide (22-30) mmol/L BUN (7-17) mg/dL Glucose (74-99) mg/dL POC Glucose (mg/dL) 216 H 225 H (75-99) mg/dL Calcium (8.4-10.2) mg/dL Total Protein (6.3-8.2) g/dL Albumin (3.5-5.0) g/dL Microbiology - Last 24 Hours (Table) 11/23/19 11:49 Blood Culture - Final Blood No Growth after 144 hours 11/27/19 12:00 Gram Stain - Final Bronchoalviolar Lavage - Right Bronchial Washings Culture - Final Assessment and Plan Assessment: Assessment Acute hypoxic respiratory failure Tachycardia which has improved Fluid overload Pneumonia History of cancer Plan Continue the current medical regimen including antibiotic as well as IV diuretics Continue monitor the blood pressure and support if the systolic pressure below 90 Possible platelet transfusion later on today
--- NOTE | 2019-11-30 07:34 | P.PN ---
Progress Note - Text Progress Note Date: 11/30/19 immunocompramised , history of breast and ovarian cancer on Rubraca, no evidence of recurrence of cancer cc SOB , detriorated failed bipap, and ended with intubation ARDS , sepsis 2/2 pneumonia vs drug induced pneumonitis on empiric ABx steroids for possible drug induced pneumonitis BAL negative to date sign off to dr. Lawrence
[2019-11-30] MEDS: fentaNYL (PF) 1,000 MCG in SODIUM CHLORIDE 0.9% 80 ML IV SCH (07:38)
--- NOTE | 2019-11-30 08:13 | P.PN ---
Subjective Progress Note Date: 11/30/19 The patient is a 53-year-old white female, with a significant past oncologic history. The patient has a history of BRCA positivity, with right-sided breast cancer, as well as ovarian cancer. The patient has had localized recurrence of her ovarian cancer and has been able to be treated successfully with surgery and chemotherapy. Her last surgery was in 2015. She has had no evidence of recurrence since then and is currently on a PARP inhibitor Rucaparib for maintenance. Previously, she was on Olaparib for many months, but was changed to her present regimen due to coverage reasons. She follows closely with Dr. Camejo, in the [place] system. She had a regular follow-up in 09/29 and at that time was found to have no evidence of recurrence. This patient presented to the hospital because of diffuse bilateral pulmonary infiltrates/upper lobe pneumonia as confirmed by CAT scan which shows that was done on admission. The patient has been on broad-spectrum antibiotics since. The patient also came in with pancytopenia which is thought to be drug induced. The patient has been Zarxio on a daily basis and despite that the counts have been still not recovering. In fact, the morning blood work showed a white cell count of 0.4 with a hemoglobin of 6.7 and the plated count of 17. 2 units of packed RBC has been ordered for this patient. Note that the patient was on high flow oxygen. She felt BiPAP therapy. She said high flow oxygen. She had to be intubated yesterday and placed on a mechanical ventilator for respiratory support. This morning, the patient is sedated with propofol at a dose of 50 g per KG per minute. The patient is post bronchoscopy and the bronchioloalveolar lavage has been done and the cultures still pending for now. The blood gases from this morning showed a pH of 7.43 with a pCO2 of 45 and a pO2 of 62 and this was done on a PEEP of 10 with an FiO2 of 100% and tidal volume of 350 with a rate of 20. The patient is quite tachypneic and she is currently breathing and the low 40s. Her chest x-ray showing diffuse bilateral pulmonary infiltrates. Chest x-ray shows diffuse bilateral airspace disease. ET tube is in a good location. Peak airway pressures around 31 with a static a pressure of 29. No significant orotracheal secretions. The patient is on a broad-spectrum antibiotics and she is covered with a combination of Diflucan 100 mg by mouth twice a day, IV as active I am, IV vancomycin and po the pro-calcitonin was elevated at 3.04 at time of admission. Hemodynamically, the patient is not requiring any pressors. The patient has been on a combination of Cymbalta, Seroquel and BuSpar on outpatient basis. On today's evaluation of 11/29/2019 the patient is being seen in follow-up. Note that the patient has been intubated and currently she remains intubated on a mechanical ventilator. Earlier this morning to have a on assist-control mode at the rate of 20 with a tidal volume of 450 and FiO2 of 100% and PEEP of 15. The blood gases from this morning showed a pH of 7.34 with a pCO2 of 60 and pO2 of 83. Her peak airway pressure was around 37 with a static pressure of 35. Chest x-ray still showing diffuse bilateral pulmonary infiltrates. She is receiving a combination of propofol at 50 mics for sedation and combination with fentanyl 1 g per KG per minute. She is also on them back for assisting synchrony with the mechanical ventilator. No significant orotracheal secretions. Cultures from the bronchoscopy that was done earlier is not showing any microbial growth. I discussed the case with infectious disease. The ani cross is currently on a combination of meropenem and vancomycin in addition to Diflucan and Levaquin and this gives us a broad-spectrum antibiotic coverage in regards to her bilateral pneumonia. The patient remains neutropenic. The white cell count is at 0.7. She still receiving Zarxio on a daily basis. The hemoglobin is at 8.5. The platelet count is at 14. Rest of the electrolytes are all within normal limits per she is on enteral feeding for nutritional support. She is tolerating her diet. On 11/30/2019 on seeing this patient for a follow-up. The patient this morning is sedated with a combination of propofol at 70 g per KG per minute and fentanyl milligrams KG per minute. She is synchronous for the most part is a mechanical ventilator with occasional stacking. In terms of her vent support, she remains on assist-control at the rate of 20 and FiO2 of 100% and a PEEP had to be increased up to 20 overnight as the patient was having issues with her oxygenation. Tidal volume is at 370 treating this patient with low tidal volume ventilation for underlying ARDS. I noted this is a blood gases that was done overnight. The most recent blood gases was done this morning showed a pH of 7.28 with a pCO2 of 77 and pO2 of 61 and the chest x-ray from this morning showed diffuse bilateral pulmonary infiltrates consistent with ARDS. She is having an occasional low-grade fever with a T-max of 100.2. The white cell count is up to 0.9 from 0.7 yesterday. Hemoglobin stable at 8.2. There is further drop in the platelet count down to 7. The patient will be given a platelet transfusion today. Meanwhile, we'll function remains stable. She is hemodynamically stable. She is not requiring any pressors. She remains on the same road spectrum antibiotics which included a combination of Levaquin, meropenem, vancomycin and Diflucan. The bronchioloalveolar lavage is still show ing no microbial growth. She remains on IV steroids. She remains on daily Lasix 40 mg every 24 hours. She is receiving filgrastim regarding her neutropenia. Based on her worsening oxygenation, I contacted [facility] in consideration for a VV ECMO and the patient is being considered for that. There is a high likelihood that that may be able to transfer this patient to [facility] for this intervention. She is receiving enteral feeding for nutritional support and Vital High Protein at the Rate of 20 ML an Hour. Objective - Vital Signs Vital signs: Vital Signs Temp 99.9 F H 11/30/19 04:00 Pulse 109 H 11/30/19 08:00 Resp 12 11/30/19 07:00 BP 97/53 11/30/19 07:00 Pulse Ox 88 L 11/30/19 07:00 Intake & Output 11/29/19 11/30/19 11/30/19 18:59 06:59 18:59 Intake Total 5668.232 0284.007 136.499 Output Total 1910 1635 120 Balance 38.725 449.007 16.499 Weight 107 kg Intake: IV 720 740 20 Lactated Ringers 1,000 ml 220 240 20 @ 20 mls/hr IV .Q24H [facility] Rx#:[id number] Vancomycin 1,750 mg In 500 500 Sodium Chloride 0.9% 500 ml 500 ml @ 167 mls/hr IVPB Q10H [facility] Rx#: [id number] Intake, IV Titration 798.725 954.007 96.499 Amount ACETAMINOPHEN IV (For NPO 400 ) 1,000 mg In Empty Bag 1 bag @ 400 mls/hr IVPB ONCE [facility] Rx#:[id number] Cisatracurium 200 mg In 107.707 Sodium Chloride 0.9% 180 ml @ 1 MCG/KG/MIN 6.084 mls/hr IV .Q24H [facility] Rx#: [id number] Meropenem 1 gm In Sodium 200 100 Chloride 0.9% 100 ml @ 200 mls/hr IVPB Q8HR [facility] Rx#:[id number] Propofol 1,000 mg In 395.702 363.254 Empty Bag 1 bag @ Titrate IV .Q0M [facility] Rx#: [id number] fentaNYL (PF) 1,000 mcg 95.316 90.753 96.499 In Sodium Chloride 0.9% 80 ml @ 1 MCG/KG/HR 10.14 mls/hr IV .Q9H52M [facility] Rx #:[id number] Tube Feeding 270 300 20 Other 160 90 Output: Urine 1910 1635 120 Other: Voiding Method Indwelling Catheter Indwelling Catheter ABP, PAP, CO, CI - Last Documented Arterial Blood Pressure 120/53 - Exam GENERAL EXAM: The patient is sedated and the patient is calm and comfortable for now, intubated on a mechanical ventilator. The patient has a #8 orotracheal tube. The patient is sedated with propofol. She is also on a combination of fentanyl and Nimbex. EYES: Normal reaction of pupils, equal size. Conjunctiva pink, sclera white. NOSE: Clear with pink turbinates. THROAT: No erythema or exudates. NECK: No masses, no JVD, no thyroid enlargement, no adenopathy. CHEST: No chest wall deformity. Symmetrical expansion. LUNGS: Equal air entry with crackles in the bilateral posterior bases, few scattered rhonchi, diminished. CVS: Regular rate and rhythm, normal S1 and S2, no gallops, no murmurs, no rubs ABDOMEN: Soft, nontender. No hepatosplenomegaly, normal bowel sounds, no guarding or rigidity. EXTREMITIES: No clubbing, no edema, no cyanosis, 2+ pulses and upper and lower extremities. MUSCULOSKELETAL: Unable to assess the muscle tone today. The patient has some increased edema in the upper and lower extremities. SPINE: No scoliosis or deformity SKIN: No rashes CENTRAL NERVOUS SYSTEM: No focal deficits, and the patient has been was sedated with propofol. PSYCHIATRIC: Unable to perform as the patient is currently intubated on a mechanical ventilator. - Labs CBC & Chem 7: 11/30/19 05:03 11/30/19 05:03 Labs: Abnormal Lab Results - Last 24 Hours (Table) 11/29/19 11/29/19 11/29/19 Range/Units 09:05 20:52 22:35 WBC (3.8-10.6) k/uL RBC (3.80-5.40) m/uL Hgb (11.4-16.0) gm/dL Hct (34.0-46.0) % MCV (80.0-100.0) fL RDW (11.5-15.5) % Plt Count (150-450) k/uL ABG pH 7.21 L 7.33 L (7.35-7.45) ABG pCO2 84 H* 66 H 68 H (35-45) mmHg ABG pO2 72 L 57 L* 58 L* (83-108) mmHg ABG HCO3 33 H 36 H 36 H (21-25) mmol/L ABG Total CO2 36 H 38 H 38 H (19-24) mmol/L ABG O2 Saturation 90.8 L 89.7 L 89.8 L (94-97) % Sodium (137-145) mmol/L Chloride (98-107) mmol/L Carbon Dioxide (22-30) mmol/L BUN (7-17) mg/dL Glucose (74-99) mg/dL POC Glucose (mg/dL) (75-99) mg/dL Calcium (8.4-10.2) mg/dL Total Protein (6.3-8.2) g/dL Albumin (3.5-5.0) g/dL 11/30/19 11/30/19 11/30/19 Range/Units 05:03 05:03 05:28 WBC 0.9 L* (3.8-10.6) k/uL RBC 2.48 L (3.80-5.40) m/uL Hgb 8.2 L (11.4-16.0) gm/dL Hct 25.0 L (34.0-46.0) % MCV 100.6 H (80.0-100.0) fL RDW 16.8 H (11.5-15.5) % Plt Count 7 L* (150-450) k/uL ABG pH 7.28 L (7.35-7.45) ABG pCO2 77 H* (35-45) mmHg ABG pO2 61 L (83-108) mmHg ABG HCO3 36 H (21-25) mmol/L ABG Total CO2 38 H (19-24) mmol/L ABG O2 Saturation 89.9 L (94-97) % Sodium 149 H (137-145) mmol/L Chloride 110 H (98-107) mmol/L Carbon Dioxide 35 H (22-30) mmol/L BUN 38 H (7-17) mg/dL Glucose 204 H (74-99) mg/dL POC Glucose (mg/dL) (75-99) mg/dL Calcium 8.1 L (8.4-10.2) mg/dL Total Protein 5.1 L (6.3-8.2) g/dL Albumin 2.4 L (3.5-5.0) g/dL 11/30/19 11/30/19 Range/Units 06:03 06:34 WBC (3.8-10.6) k/uL RBC (3.80-5.40) m/uL Hgb (11.4-16.0) gm/dL Hct (34.0-46.0) % MCV (80.0-100.0) fL RDW (11.5-15.5) % Plt Count (150-450) k/uL ABG pH (7.35-7.45) ABG pCO2 (35-45) mmHg ABG pO2 (83-108) mmHg ABG HCO3 (21-25) mmol/L ABG Total CO2 (19-24) mmol/L ABG O2 Saturation (94-97) % Sodium (137-145) mmol/L Chloride (98-107) mmol/L Carbon Dioxide (22-30) mmol/L BUN (7-17) mg/dL Glucose (74-99) mg/dL POC Glucose (mg/dL) 216 H 225 H (75-99) mg/dL Calcium (8.4-10.2) mg/dL Total Protein (6.3-8.2) g/dL Albumin (3.5-5.0) g/dL Microbiology - Last 24 Hours (Table) 11/23/19 11:49 Blood Culture - Final Blood No Growth after 144 hours 11/27/19 12:00 Gram Stain - Final Bronchoalviolar Lavage - Right Bronchial Washings Culture - Final Assessment and Plan Plan: 1. Bilateral pneumonia/ARDS with secondary acute hypoxemic respiratory failure in a 53-year-old female patient who presents with pancytopenia, possibly drug induced. The patient had dense upper lobe infiltrate and the patient developed diffuse bilateral pulmonary infiltration with subsequent acute hypoxic respiratory failure, failed BiPAP, failed hypo-oxygen and currently she is intubated on a mechanical ventilator. For now, the patient remains intubated on a mechanical ventilator. She is on a combination of propofol and fentanyl and Nimbex also being utilized for Prilosec and secondarily with a mechanical ventilator. Oxygenation has progressive getting worse and the patient is currently on high PEEP of 20 with an FiO2 of 100% and a pO2 is barely above 60. Chest x-ray showing diffuse but the pulmonary infiltrates. Peak airway pressures around 38. Static pressures around 35. She is receiving low tidal volume ventilation with tidal volume of 370 and the patient is receiving some permissive hypercapnia. Hemodynamically stable. Covered with broad-spectrum antibiotics and systemic steroids. May need to be considered for review the echo. 2 pancytopenia, consider drug-induced as the patient was on the Rubraca on an outpatient basis regarding her ovarian cancer, currently on filgrastim and the white cell count is up to 0.9. Meanwhile hemoglobin is stable. There is significant drop in the platelet count IS 7 and the patient is receiving a platelet transfusion today. 3 stable hemodynamics the echocardiogram showed a preserved ejection fraction of 6065%. No other valvular abnormalities have been noted. 4 History of ovarian cancer, status post bilateral salpingo-oophorectomy and hysterectomy, with prior multiple chemotherapeutic agents and radiation, currently on Rubraca 5 History of left breast cancer, status post bilateral radical mastectomy 6 Obesity 7 Elevated troponins rule out non-ST elevated myocardial infarction 8 chronic depression maintained on a combination of Cymbalta, BuSpar and Ser oquel and outpatient basis Plan Continue vent support. Allow permissive hypercapnia with low tidal volume ventilation. The patient is on a tidal volume of 370. PEEP is up to 20. Unfortunately the oxygenation is very borderline. At this point in time I contacted the ECMO team at [facility] in consultation for a repeat echo. The patient seems to be an okay candidate as long as his hematologic profile remains stable. She'll be given platelet transfusion today in anticipation for transfer to [facility] today. Meanwhile, continue the steroids, broad- spectrum antibiotics, sedation and paralytics as needed for synchrony. The bronchioloalveolar lavage was done and the cultures are negative for now. She is covered with broad-spectrum antibiotics including meropenem Levaquin and vancomycin and Diflucan is a current antibiotic coverage for now, continue Zarxio for now Echo is showing a preserved LV function Condition is critical. I was able to retrieve an old MRI of the abdomen and pelvis that showed no evidence of any disease progression or recurrence. Condition is critical. We'll continue to follow make further recommendations based on her progress. Critically care evaluation that was done more than 30 minutes. The family was updated on her condition. I talked to her and the son. They're agreeable for the transplant. Also contacted the ECMO team at [facility] regarding this patient. Time with Patient: Greater than 30
[2019-11-30] MEDS ORDERED: CISATRACURIUM 200 MG in SODIUM CHLORIDE 0.9% 180 ML IV SCH (08:30)
[2019-11-30 09:21] LABS: INR 1.1 (<1.2); Prothrombin Time 10.9 sec (9.0-12.0)
--- NOTE | 2019-11-30 09:25 | XR ---
EXAMINATION TYPE: XR chest 1V portable DATE OF EXAM: 11/30/2019 COMPARISON: Prior chest x-ray dated 11/29/2019 HISTORY: Hypoxemia, abnormal chest x-ray, intubated TECHNIQUE: Single frontal view of the chest is obtained. FINDINGS: Endotracheal tube and NG tube are overlying appropriate positions. There is a left jugular central venous catheter, distal tip is coursing toward the right atrium but is not well seen. Patien t is rotated. No evident pneumothorax. Bilateral airspace disease is present. Heart size is stable. IMPRESSION: Findings are similar to prior exam. Correlate for pneumonia, edema, ARDS. Rotated exam, follow-up recommended.
[2019-11-30 09:26] LABS: Partial Thromboplastin Time 21.5 sec (22.0-30.0)
[2019-11-30] MEDS: NOREPINEPHRINE 4 MG in SODIUM CHLORIDE 0.9% 250 ML IV SCH (09:47)
[2019-11-30 09:57] LABS: Glucose,Whole Blood 205 mg/dL (75-99)
[2019-11-30 10:02] VITALS: BP 133/67; PULSE 130; RESP 22; TEMP 101.3
[2019-11-30] MEDS: MEROPENEM 1 GM in SODIUM CHLORIDE 0.9% 100 ML IVPB SCH (10:58)
[2019-11-30] MEDS: methylPREDNISolone SOD SUCCI 125 MG/2 ML VIAL IV SCH (10:58)
[2019-11-30] MEDS: ATENOLOL 25 MG TAB PO SCH (10:59)
[2019-11-30] MEDS: FLUCONAZOLE 100 MG TAB PO SCH (10:59)
[2019-11-30] MEDS: FILGRASTIM-SNDZ 480 MCG/0.8 ML SYRINGE SQ SCH (10:59)
[2019-11-30] MEDS: busPIRone HCl 10 MG TAB PO SCH (10:59)
[2019-11-30] MEDS: FUROSEMIDE 10 MG/ML 4 ML VIAL IV SCH (10:59)
[2019-11-30] MEDS: DULoxetine HCL 30 MG CAPSULE.DR PO SCH (10:59)
[2019-11-30] MEDS: CHLORHEXIDINE GLUCONATE 15 ML CUP MUCOUS MEM SCH (10:59)
[2019-11-30] MEDS: GABAPENTIN 300 MG CAP PO SCH (11:00)
[2019-11-30] MEDS: PANTOPRAZOLE 40 MG/10 ML VIAL IVP SCH (11:00)
--- NOTE | 2019-11-30 11:00 | P.PN ---
Subjective Progress Note Date: 11/30/19 Principal diagnosis: difficulty in breathing In follow-up today patient is sedated and mechanically ventilated. She does not appear to be in any distress Objective - Vital Signs Vital signs: Vital Signs Temp 101.3 F H 11/30/19 09:40 Pulse 130 H 11/30/19 09:40 Resp 22 11/30/19 09:40 BP 133/67 11/30/19 09:40 Pulse Ox 89 L 11/30/19 09:40 Intake & Output 11/29/19 11/30/19 11/30/19 18:59 06:59 18:59 Intake Total 1319.855 3258.007 986.207 Output Total 1910 1635 445 Balance 38.725 449.007 541.207 Weight 107 kg Intake: IV 720 740 80 Lactated Ringers 1,000 ml 220 240 80 @ 20 mls/hr IV .Q24H [facility] Rx#:[id number] Vancomycin 1,750 mg In 500 500 Sodium Chloride 0.9% 500 ml 500 ml @ 167 mls/hr IVPB Q10H [facility] Rx#: [id number] Intake, IV Titration 798.725 954.007 246.207 Amount ACETAMINOPHEN IV (For NPO 400 ) 1,000 mg In Empty Bag 1 bag @ 400 mls/hr IVPB ONCE [facility] Rx#:[id number] Cisatracurium 200 mg In 107.707 Sodium Chloride 0.9% 180 ml @ 1 MCG/KG/MIN 6.084 mls/hr IV .Q24H [facility] Rx#: [id number] Cisatracurium 200 mg In 1.712 Sodium Chloride 0.9% 180 ml @ 1 MCG/KG/MIN 6.42 mls/hr IV .Q24H [facility] Rx#: [id number] Meropenem 1 gm In Sodium 200 100 Chloride 0.9% 100 ml @ 200 mls/hr IVPB Q8HR [facility] Rx#:[id number] Propofol 1,000 mg In 395.702 363.254 126.364 Empty Bag 1 bag @ Titrate IV .Q0M [facility] Rx#: [id number] fentaNYL (PF) 1,000 mcg 95.316 90.753 118.131 In Sodium Chloride 0.9% 80 ml @ 1 MCG/KG/HR 10.14 mls/hr IV .Q9H52M [facility] Rx #:[id number] Tube Feeding 270 300 100 Blood Product 560 Ffp 24 Cpd Unit 0 [id number] Ffp 24 Cpda Unit 0 [id number] Platelet Pheresis Acda1 250 Unit [id number] Rc As-1 Unit 0 [id number] Rc As-1 Unit 310 [id number] Other 160 90 Output: Urine 1910 1635 445 Other: Voiding Method Indwelling Catheter Indwelling Catheter ABP, PAP, CO, CI - Last Documented Arterial Blood Pressure 130/56 - Constitutional General appearance: Present: no acute distress, obese - Integumentary Integumentary: Present: pale - Psychiatric Psychiatric: Absent: A&O x's 3, appropriate affect, intact judgment & insight - Labs CBC & Chem 7: 11/30/19 05:03 11/30/19 05:03 Labs: Abnormal Lab Results - Last 24 Hours (Table) 11/28/19 11/29/19 11/29/19 Range/Units 06:25 20:52 22:35 WBC (3.8-10.6) k/uL RBC (3.80-5.40) m/uL Hgb (11.4-16.0) gm/dL Hct (34.0-46.0) % MCV (80.0-100.0) fL RDW (11.5-15.5) % Plt Count (150-450) k/uL APTT (22.0-30.0) sec ABG pH 7.33 L (7.35-7.45) ABG pCO2 66 H 68 H (35-45) mmHg ABG pO2 57 L* 58 L* (83-108) mmHg ABG HCO3 36 H 36 H (21-25) mmol/L ABG Total CO2 38 H 38 H (19-24) mmol/L ABG O2 Saturation 89.7 L 89.8 L (94-97) % Sodium (137-145) mmol/L Chloride (98-107) mmol/L Carbon Dioxide (22-30) mmol/L BUN (7-17) mg/dL Glucose (74-99) mg/dL POC Glucose (mg/dL) (75-99) mg/dL Calcium (8.4-10.2) mg/dL Total Protein (6.3-8.2) g/dL Albumin (3.5-5.0) g/dL Crossmatch See Detail 11/30/19 11/30/19 11/30/19 Range/Units 05:03 05:03 05:28 WBC 0.9 L* (3.8-10.6) k/uL RBC 2.48 L (3.80-5.40) m/uL Hgb 8.2 L (11.4-16.0) gm/dL Hct 25.0 L (34.0-46.0) % MCV 100.6 H (80.0-100.0) fL RDW 16.8 H (11.5-15.5) % Plt Count 7 L* (150-450) k/uL APTT (22.0-30.0) sec ABG pH 7.28 L (7.35-7.45) ABG pCO2 77 H* (35-45) mmHg ABG pO2 61 L (83-108) mmHg ABG HCO3 36 H (21-25) mmol/L ABG Total CO2 38 H (19-24) mmol/L ABG O2 Saturation 89.9 L (94-97) % Sodium 149 H (137-145) mmol/L Chloride 110 H (98-107) mmol/L Carbon Dioxide 35 H (22-30) mmol/L BUN 38 H (7-17) mg/dL Glucose 204 H (74-99) mg/dL POC Glucose (mg/dL) (75-99) mg/dL Calcium 8.1 L (8.4-10.2) mg/dL Total Protein 5.1 L (6.3-8.2) g/dL Albumin 2.4 L (3.5-5.0) g/dL Crossmatch 11/30/19 11/30/19 11/30/19 Range/Units 06:03 06:34 08:46 WBC (3.8-10.6) k/uL RBC (3.80-5.40) m/uL Hgb (11.4-16.0) gm/dL Hct (34.0-46.0) % MCV (80.0-100.0) fL RDW (11.5-15.5) % Plt Count (150-450) k/uL APTT 21.5 L (22.0-30.0) sec ABG pH (7.35-7.45) ABG pCO2 (35-45) mmHg ABG pO2 (83-108) mmHg ABG HCO3 (21-25) mmol/L ABG Total CO2 (19-24) mmol/L ABG O2 Saturation (94-97) % Sodium (137-145) mmol/L Chloride (98-107) mmol/L Carbon Dioxide (22-30) mmol/L BUN (7-17) mg/dL Glucose (74-99) mg/dL POC Glucose (mg/dL) 216 H 225 H (75-99) mg/dL Calcium (8.4-10.2) mg/dL Total Protein (6.3-8.2) g/dL Albumin (3.5-5.0) g/dL Crossmatch 11/30/19 Range/Units 09:56 WBC (3.8-10.6) k/uL RBC (3.80-5.40) m/uL Hgb (11.4-16.0) gm/dL Hct (34.0-46.0) % MCV (80.0-100.0) fL RDW (11.5-15.5) % Plt Count (150-450) k/uL APTT (22.0-30.0) sec ABG pH (7.35-7.45) ABG pCO2 (35-45) mmHg ABG pO2 (83-108) mmHg ABG HCO3 (21-25) mmol/L ABG Total CO2 (19-24) mmol/L ABG O2 Saturation (94-97) % Sodium (137-145) mmol/L Chloride (98-107) mmol/L Carbon Dioxide (22-30) mmol/L BUN (7-17) mg/dL Glucose (74-99) mg/dL POC Glucose (mg/dL) 205 H (75-99) mg/dL Calcium (8.4-10.2) mg/dL Total Protein (6.3-8.2) g/dL Albumin (3.5-5.0) g/dL Crossmatch Microbiology - Last 24 Hours (Table) 11/23/19 11:49 Blood Culture - Final Blood No Growth after 144 hours 11/27/19 12:00 Gram Stain - Final Bronchoalviolar Lavage - Right Bronchial Washings Culture - Final - Imaging and Cardiology Chest x-ray: report reviewed Assessment and Plan (1) Pancytopenia Narrative/Plan: Transfuse to keep hemoglobin 7 or higher. Transfuse to keep platelets greater than 10,000 unless patient is showing signs or symptoms of bleeding. Platelets 7,000 today, she is being transfused. G-CSF has been started-continue Labs reviewed, no evidence at this time to suggest hemolysis or DIC Current Visit: Yes Status: Acute Priority: High Code(s): D61.818 - OTHER PANCYTOPENIA SNOMED Code(s): 067579354 (2) Ovarian cancer Narrative/Plan: Treated with maintenance Rubraca, hold for now. No evidence of malignant process at this time. Current Visit: No Status: Chronic Priority: Low Code(s): C56.9 - MALIGNANT NEOPLASM OF UNSPECIFIED OVARY SNOMED Code(s): 503314820 (3) Breast cancer Narrative/Plan: History of, no current treatment. Current Visit: No Status: Chronic Priority: Low Code(s): C50.919 - MALIGNANT NEOPLASM OF UNSP SITE OF UNSPECIFIED FEMALE BREAST SNOMED Code(s): 417603515 Plan: Case was discussed with the Critical Care team. ARDS is diagnosis. Patient was closely monitored and vent managed without significant improvement therefore, patient is being transferred for ECMO. In regards to the underlying cause of ARDS it is not exactly certain. Lymphangitic spread of malignancy and atypical infection have been ruled out for the most part. Drug effect vs a viral cause are higher in the differential. Dr. Walter did have a discussion with the family as well. Further questions were answered. They do understand the recommendations. They agree with transport to tertiary care facility. Doctor attests: I performed a history and physical examination of this patient, developed impression and plan of care. Discussed with dictator. I agree with dictators note, documented as a scribe.
--- NOTE | 2019-11-30 16:11 | P.DS ---
Providers Date of admission: 11/23/19 13:19 Attending physician: Jourdan Lawrence Consults: 11/23/19 13:18 Consult Physician Stat Consulting Provider: Indio Munoz Consult Reason/Comments: High-output heart failure, pancytopenia Do you want consulting provider notified?: Already Contacted 11/23/19 15:08 Consult Physician Stat Consulting Provider: Nabil Walter Consult Reason/Comments: Pancytopenia Do you want consulting provider notified?: Yes 11/23/19 16:53 Consult Physician Routine Consulting Provider: Jose Roberto Alfaro Consult Reason/Comments: Heart failure Do you want consulting provider notified?: Yes 11/23/19 17:54 Consult Physician Routine Consulting Provider: Mikal Paris Consult Reason/Comments: Depression/suicidal thoughts Do you want consulting provider notified?: Yes 11/24/19 08:42 Consult Physician Routine Consulting Provider: Maria Luz Zacarias Consult Reason/Comments: lung infiltrates possible pneumonitis Do you want consulting provider notified?: Yes Primary care physician: Jourdan [facility] Course: this discharge summary is written per Dr. Lawrence request, as care was transferred to him today, however he did not see the patient before discharge this is not billable i have not seen the patient today as i signed off her case today. final diagnosis acute hypoxemic respiratory failure , with underlying acute respiratory distress syndrome suspected underlying pneumonia drug induced vs infectious Sepsis secondary to pneumonia Vent dependant respiratory failure secondary to above Pancytopenia thought to be drug induced secondary to Rubraca hospital course summary The patient is a 53-year-old female with a PMH of BRCA1 and BRCA2 positive breast and ovarian cancers, initially diagnosed 2003 with multiple relapses, last relapse in 2016, currently on Rubraca for maintenance presented to the ED for gradually worsening shortness of breath, decreased exercise tolerance, and a pale complexion. The patient reported that her symptoms started after she returned from a trip to [facility] at the end of September. She reported that in early October she had developed a cold, after which she slowly developed her symptoms. Patient reported that she has a history of hemorrhoids and regularly bleeds with bright red blood upon wiping and in the toilet bowl, though notes that the bleeding did stop roughly 2-3 weeks ago. The patient underwent an extensive evaluation in the emergency room. Upon presentation, her vital signs were P 124, BP 125/62, 85% on 3L NC, T 99.3. Laboratory evaluation revealed WBC count 1.3, hemoglobin 5.2, platelets 60, lactic acid 7.5, troponin 0.049, BUN 23, creatinine 1.15, BNP 6530, FOBT negative, and negative acetone. Chest x-ray revealed diffuse interstitial and alveolar pattern with multifocal areas of consolidation. Chest CTA showing aparna areas of consolidation with ground-glass changes involving the upper lobes, possibly pulmonary edema. She was given azithromycin, and 2 units of PRBCs were ordered and the patient was admitted to the medical ICU for further management. The patient was initially placed on BiPAP. She was switched to Levaquin and was given multiple doses of IV lasix for fluid overload. Hematology was consulted and recommended that the patient may have pneumonitis either due to a drug reaction or viral in nature vs an atypical infection. She was started on IV Steroids. She was also started on G-CSF and had received a total of 3 U of pRBCs. The patient also expressed suicidal ideation for which psychiatry was consulted and recommended one-to-one sitter and resuming her anti-depressants from home. The patient was titrated off BiPAP and was started on high flow nasal cannula. Infectious disease was consulted and the patient was started on aztreonam, Diflucan, and vancomycin. 11/27. The patient notes that her breathing is worsened today. Her oxygen requirements have gradually increased over the past 48 hours. She is denying fever, chills, abdominal pain, nausea, or vomiting. 11/28 patient is intubated on mechanical ventilation , CXR showing progression of disease with picture suggestive of ARDS. patient continues on aggressive supportive measures. await bronchial wash cultures. 11/29 ARDS BAL continues to be negative CXR diffuse infilterates continue on empiric ABx meropenem, diflucan, levequin, vanco steroids for possible drug induced pneumonitis permissive hypercapnia for ARDS managed per pulmonary supportive care patient continues to be critical requiring aggressive supportive measures follow up cultures hemoglobin improved post blood transfusion , platelet transufison as needed On 11/30/2019 Based on her worsening oxygenation, Dr Hope (pulmonary) contacted [facility] in consideration for a VV ECMO and the patient is being considered for that. transfer this patient to [facility] for this intervention. Plan - Discharge Summary Discharge Rx Participant: No New Discharge Prescriptions: No Action QUEtiapine [SEROquel] 50 mg PO HS Montelukast [Singulair] 10 mg PO DAILY Ibuprofen [Motrin] 800 mg PO Q12H PRN PRN Reason: Pain busPIRone HCL [Buspar] 10 mg PO TID HYDROcodone/APAP 7.5-325MG [Beach 7.5-325] 1 tab PO Q4H PRN PRN Reason: Pain Gabapentin [Neurontin] 600 mg PO TID Furosemide [Lasix] 40 mg PO DAILY DULoxetine HCL [Cymbalta] 120 mg PO DAILY diphenhydrAMINE [Benadryl] 50 mg PO HS Atenolol [Tenormin] 25 mg PO DAILY Zt Lido 1.8% Patch 1 patch TRANSDERM DAILY Rucaparib Camsylate [Rubraca] 200 mg PO BID Discharge Medication List Atenolol [Tenormin] 25 mg PO DAILY 11/23/19 [History] DULoxetine HCL [Cymbalta] 120 mg PO DAILY 11/23/19 [History] Furosemide [Lasix] 40 mg PO DAILY 11/23/19 [History] Gabapentin [Neurontin] 600 mg PO TID 11/23/19 [History] HYDROcodone/APAP 7.5-325MG [Beach 7.5-325] 1 tab PO Q4H PRN 11/23/19 [History] Ibuprofen [Motrin] 800 mg PO Q12H PRN 11/23/19 [History] Montelukast [Singulair] 10 mg PO DAILY 11/23/19 [History] QUEtiapine [SEROquel] 50 mg PO HS 11/23/19 [History] Rucaparib Camsylate [Rubraca] 200 mg PO BID 11/23/19 [History] Zt Lido 1.8% Patch 1 patch TRANSDERM DAILY 11/23/19 [History] busPIRone HCL [Buspar] 10 mg PO TID 11/23/19 [History] diphenhydrAMINE [Benadryl] 50 mg PO HS 11/23/19 [History] Follow up Appointment(s)/Referral(s): Jimmy Ferrer MD [STAFF PHYSICIAN] - 1-2 days Discharge Disposition: OTHER INSTITUTION NOT DEFINED
== END 2019-11-30 11:20 | disposition short-term general hospital (02) | DRG 871 ==
LOC: EC 11:29 → 2SICU 13:19
PROVIDERS: ADMIT Hospitalist; ATTEND Hospitalist
PROC: 5A09457 Assistance with Respiratory Ventilation, 24-96 Consecutive Hours, Continuous Positive Airway Pressure (ICD-10-PCS; 2019-11-23)
PROC: 30233N1 Transfusion of Nonautologous Red Blood Cells into Peripheral Vein, Percutaneous Approach (ICD-10-PCS; 2019-11-23)
PROC: 5A1945Z Respiratory Ventilation, 24-96 Consecutive Hours (ICD-10-PCS; principal; 2019-11-27)
PROC: 0BH17EZ Insertion of Endotracheal Airway into Trachea, Via Natural or Artificial Opening (ICD-10-PCS; 2019-11-27)
PROC: 0D9670Z Drainage of Stomach with Drainage Device, Via Natural or Artificial Opening (ICD-10-PCS; 2019-11-27)
PROC: 0B9D8ZX Drainage of Right Middle Lung Lobe, Via Natural or Artificial Opening Endoscopic, Diagnostic (ICD-10-PCS; 2019-11-27)
PROC: 0B9M8ZZ Drainage of Bilateral Lungs, Via Natural or Artificial Opening Endoscopic (ICD-10-PCS; 2019-11-27)
PROC: 4A133B1 Monitoring of Arterial Pressure, Peripheral, Percutaneous Approach (ICD-10-PCS; 2019-11-27)
PROC: 4A133J1 Monitoring of Arterial Pulse, Peripheral, Percutaneous Approach (ICD-10-PCS; 2019-11-27)
PROC: 03HY32Z Insertion of Monitoring Device into Upper Artery, Percutaneous Approach (ICD-10-PCS; 2019-11-27)
PROC: 02H633Z Insertion of Infusion Device into Right Atrium, Percutaneous Approach (ICD-10-PCS; 2019-11-27)
PROC: 3E0G76Z Introduction of Nutritional Substance into Upper GI, Via Natural or Artificial Opening (ICD-10-PCS; 2019-11-28)
PROC: 30233R1 Transfusion of Nonautologous Platelets into Peripheral Vein, Percutaneous Approach (ICD-10-PCS; 2019-11-30)
PROC: 30233K1 Transfusion of Nonautologous Frozen Plasma into Peripheral Vein, Percutaneous Approach (ICD-10-PCS; 2019-11-30)
DX: A41.9 Sepsis, unspecified organism (principal); J96.01 Acute respiratory failure with hypoxia; J18.9 Pneumonia, unspecified organism; D61.810 Antineoplastic chemotherapy induced pancytopenia; E87.2 Acidosis; N17.9 Acute kidney failure, unspecified; Z68.41 Body mass index [BMI] 40.0-44.9, adult; C56.9 Malignant neoplasm of unspecified ovary; C79.9 Secondary malignant neoplasm of unspecified site; R45.851 Suicidal ideations; D84.9 Immunodeficiency, unspecified; R65.20 Severe sepsis without septic shock; I50.83 High output heart failure; E66.01 Morbid (severe) obesity due to excess calories; C50.912 Malignant neoplasm of unspecified site of left female breast; C50.911 Malignant neoplasm of unspecified site of right female breast; Z17.0 Estrogen receptor positive status [ER+]; T45.1X5A Adverse effect of antineoplastic and immunosuppressive drugs, initial encounter; E83.42 Hypomagnesemia; E87.6 Hypokalemia; F32.9 Major depressive disorder, single episode, unspecified; F41.9 Anxiety disorder, unspecified; K64.9 Unspecified hemorrhoids; R79.89 Other specified abnormal findings of blood chemistry; Z79.899 Other long term (current) drug therapy; Z15.01 Genetic susceptibility to malignant neoplasm of breast; Z90.710 Acquired absence of both cervix and uterus; Z90.79 Acquired absence of other genital organ(s); Z90.722 Acquired absence of ovaries, bilateral; Z90.13 Acquired absence of bilateral breasts and nipples; Z90.49 Acquired absence of other specified parts of digestive tract; Z92.21 Personal history of antineoplastic chemotherapy; Z92.3 Personal history of irradiation; Z98.890 Other specified postprocedural states; Z71.3 Dietary counseling and surveillance; Z88.0 Allergy status to penicillin; Z88.8 Allergy status to other drugs, medicaments and biological substances; Z88.1 Allergy status to other antibiotic agents; Z91.018 Allergy to other foods; Z80.0 Family history of malignant neoplasm of digestive organs
CPT/HCPCS: 31624; 36415; 36430; 36600; 71045; 71275; 80048; 80053; 80202; 81003; 82009; 82248; 82272; 82550; 82607; 82728; 82747; 82805; 83010; 83605; 83615; 83735; 83880; 83883; 84132; 84145; 84165; 84484; 85025; 85027; 85045; 85384; 85610; 85730; 86038; 86140; 86300; 86334; 86431; 86747; 86850; 86900; 86901; 86920; 87040; 87070; 87102; 87116; 87205; 87206; 87252; 87449; 87496; 87498; 87502; 87529; 87634; 87798; 88108; 88305; 89050; 93005; 93306; 94002; 94003; 94640; 94660; 94770; 96365; 99291